=== PATIENT | female | born 1955 | race Caucasian/White ===

== ENCOUNTER 2016-04-09 02:31 | Inpatient (IN) | payer OTHER ==
[~2016-04-09] VITALS: Ht 157.5 cm; Wt 65.0 kg
[2016-04-09] VITALS (10 sets, daily range): BP systolic 79–95; BP diastolic 43–58; PULSE 64–87; TEMP 36.7–37.3; O2SAT 90–98; Ht 157.5 cm; Wt 65.0 kg
[~2016-04-09 02:31] MED LIST: ACT300 PO; CLTP PO; LEVO-366 PO; PRED20TA PO; SYN137 PO
[2016-04-09] MEDS ORDERED: ALBUT/IPRATROP 3MG/0.5MG NEB 3 ML VIAL INH STA (02:47)
[2016-04-09] MEDS ORDERED: SODIUM CHLORIDE 0.9% 1000ML 1,000 ML IV STA ×2 (02:47→05:04)
[2016-04-09] MEDS ORDERED: ACETAMINOPHEN 500 MG TAB PO STA (02:47)
--- NOTE | 2016-04-09 02:57 | EMERGENCY ROOM VISIT NOTE ---
History Report prepared by Alf: James Salas Under the Supervision of: Dr. Donnie Dickey M.D. First contact with patient: 02:40 Chief Complaint: ILLNESS Stated Complaint: ILLNESS History of Present Illness The patient is a 60 year old female who presents to the Emergency Room with complaints of sudden onset illness that started prior to arrival. The patient notes that when she went to bed she felt fine; however, she woke up feverish with chills and was freezing. She notes that she had difficulty catching her breath and also had an episode of vomiting. The patient also complains of cold- like symptoms including headache, runny nose and phlegm. She denies nausea and notes that she feels a little better since she arrived at the ED. The patient also notes a dark malodorous urine for the past week. Source of History: patient Onset: prior to arrival Position: other (global) Timing: other (sudden onset) Associated Symptoms: + SOB (difficulty catching her breath), + chills, + fevers, + headache, + urinary symptoms, + vomiting, No nausea Note: Other associated symptoms: freezing, cold-like symptoms, runny nose, phlegm Review of Systems See HPI for pertinent positives & negatives. A total of 10 systems reviewed and were otherwise negative. Past Medical & Surgical Medical Problems: (1) delivery delivered (2) Elevated troponin (3) UTI (urinary tract infection) Surgical Problems: (1) Benign tumor Family History FHx: cancer Social History Smoking Status: Never Smoker Marital Status: Housing Status: lives with family Occupation Status: employed Current/Historical Medications Scheduled Calcium-Magnesium W/ Vitamin D (Citracal Calcium+D Slow R), 1 TAB PO DAILY Cholecalciferol (Vitamin D3), 1 TAB PO DAILY Levothyroxine Sodium (Levothyroxine Sodium), 1 TAB PO DAILY Ursodiol (Ursodiol), 600 MG PO BID Allergies Coded Allergies: Flu Virus Vaccine (Verified Allergy, Unknown, "my red blood cells drop", ) Latex1 -Allergic Contact Dermititis (Verified Allergy, Unknown, gets rash , 04/09/16) Physical Exam Vital Signs Date Time Temp Pulse Resp B/P Pulse Ox O2 Delivery O2 Flow Rate FiO2 04/09/16 04:26 38.1 103 24 98/47 95 Room Air 04/09/16 02:39 103 04/09/16 02:33 39.2 107 26 107/53 93 Room Air Physical Exam GENERAL: Patient is mildly-anxious appearing. HEENT: No acute trauma, normocephalic atraumatic, mucous membranes moist, no nasal congestion, no scleral icterus. NECK: No stridor, no adenopathy, no meningismus, trachea is midline. LUNGS: No dyspnea. Clear to auscultation and equal bilaterally. No wheeze, no rhonchi. HEART: Tachycardic. No murmurs, rubs, gallops appreciated. ABDOMEN: Soft, nontender, bowel sounds positive, no masses appreciated, no peritonitis. BACK: No midline tenderness, no CVA tenderness EXTREMITIES: Normal motion all extremities, no cyanosis, no edema. NEUROLOGIC: Alert and oriented, no acute motor or sensory deficits, no focal weakness, cranial nerves grossly intact. SKIN: No rash, no jaundice, no diaphoresis. Medical Decision & Procedures ER Provider Diagnostic Interpretation: X ray results are stated below per my interpretation and the radiologist's interpretation. Atelectasis vs. small infiltrate in left lower lobe. No effusion. No pneumothorax. Laboratory Results 04/09/16 02:15 Red Blood Count 3.94, Mean Corpuscular Volume 88.3, Mean Corpuscular Hemoglobin 31.0, Mean Corpuscular Hemoglobin Concent 35.1, Mean Platelet Volume 10.3, Neutrophils (%) (Auto) 82.2, Lymphocytes (%) (Auto) 15.1, Monocytes (%) (Auto) 1.2, Eosinophils (%) (Auto) 1.1, Basophils (%) (Auto) 0.2, Neutrophils # (Auto) 7.33, Lymphocytes # (Auto) 1.35, Monocytes # (Auto) 0.11, Eosinophils # (Auto) 0.10, Basophils # (Auto) 0.02 04/09/16 02:15 Test 04/09/16 02:15 04/09/16 02:55 04/09/16 03:10 04/09/16 03:18 White Blood Count 8.93 K/uL (4.8-10.8) Red Blood Count 3.94 M/uL (4.2-5.4) Hemoglobin 12.2 g/dL (12.0-16.0) Hematocrit 34.8 % (37-47) Mean Corpuscular Volume 88.3 fL (80-100) Mean Corpuscular Hemoglobin 31.0 pg (25-34) Mean Corpuscular Hemoglobin Concent 35.1 g/dl (32-36) Platelet Count 40 K/uL (130-400) Mean Platelet Volume 10.3 fL (7.4-10.4) Neutrophils (%) (Auto) 82.2 % Lymphocytes (%) (Auto) 15.1 % Monocytes (%) (Auto) 1.2 % Eosinophils (%) (Auto) 1.1 % Basophils (%) (Auto) 0.2 % Neutrophils # (Auto) 7.33 K/uL (1.4-6.5) Lymphocytes # (Auto) 1.35 K/uL (1.2-3.4) Monocytes # (Auto) 0.11 K/uL (0.11-0.59) Eosinophils # (Auto) 0.10 K/uL (0-0.5) Basophils # (Auto) 0.02 K/uL (0-0.2) RDW Standard Deviation 44.2 fL (36.4-46.3) RDW Coefficient of Variation 13.9 % (11.5-14.5) Immature Granulocyte % (Auto) 0.2 % Immature Granulocyte # (Auto) 0.02 K/uL (0.00-0.02) Platelet Estimate DECREASED D-Dimer 2810 ug/L FEU (0-500) Anion Gap 15.0 mmol/L (3-11) Est Creatinine Clear Calc Drug Dose 41.0 ml/min Estimated GFR () 51.6 Estimated GFR (Non- 44.6 BUN/Creatinine Ratio 16.1 (10-20) Calcium Level 9.4 mg/dl (8.5-10.1) Total Bilirubin 1.1 mg/dl (0.2-1) Direct Bilirubin 0.4 mg/dl (0-0.2) Aspartate Amino Transf (AST/SGOT) 47 U/L (15-37) Alanine Aminotransferase (ALT/SGPT) 21 U/L (12-78) Alkaline Phosphatase 202 U/L (45-117) Total Creatine Kinase 70 U/L (26-192) Creatine Kinase MB 1.8 ng/ml (0.5-3.6) Creatine Kinase MB Ratio 2.6 (0-3.0) Troponin I 0.031 ng/ml (0-0.045) Total Protein 8.0 gm/dl (6.4-8.2) Albumin 3.7 gm/dl (3.4-5.0) Influenza Type A Antigen Neg for Influ A (NEG) Influenza Type B Antigen Neg for Influ B (NEG) Urine Color YELLOW Urine Appearance SL CLOUDY (CLEAR) Urine pH 6.5 (4.5-7.5) Urine Specific [place] 1.015 (1.000-1.030) Urine Protein TRACE (NEG) Urine Glucose (UA) NEG (NEG) Urine Ketones NEG (NEG) Urine Occult Blood 3+ (NEG) Urine Nitrite POS (NEG) Urine Bilirubin NEG (NEG) Urine Urobilinogen NEG (NEG) Urine Leukocyte Esterase LARGE (NEG) Urine RBC 10-30 /hpf (0-4) Urine WBC >30 /hpf (0-5) Urine Epithelial Cells 0-5 /lpf (0-5) Urine Bacteria 4+ (NEG) Bedside Lactic Acid Venous 1.56 mmol/L (0.90-1.70) Laboratory results as reviewed by me. Medications Administered Medications (Trade) Dose Ordered Sig/Alan Route Start Time Stop Time Status Last Admin Dose Admin Sodium Chloride (Nss 1000ml) 1,000 ml @ 999 mls/hr Q1H1M STAT IV 04/09/16 02:47 04/09/16 03:47 DC 04/09/16 02:56 999 MLS/HR Acetaminophen (Tylenol Tab) 1,000 mg NOW STAT PO 04/09/16 02:47 04/09/16 02:49 DC 04/09/16 02:56 1,000 MG Albuterol/ Ipratropium (Duoneb) 3 ml NOW STAT INH 04/09/16 02:47 04/09/16 02:49 DC 04/09/16 02:56 3 ML Ceftriaxone Sodium 1 gm 1 gm NOW STAT IV 04/09/16 03:53 04/09/16 03:54 DC 04/09/16 04:14 1 GM Sodium Chloride (Nss 1000ml) 1,000 ml @ 999 mls/hr Q1H1M STAT IV 04/09/16 05:04 04/09/16 06:04 DC 04/09/16 05:39 999 MLS/HR ECG Indication: other Rate (beats per minute): 96 Rhythm: normal sinus Findings: no acute ischemic change, no ectopy ED Course 0242: The patient was evaluated in room B9. A complete history and physical exam was performed. 0247: Ordered Duoneb 3 ml INH, Tylenol Tab 1000 mg PO, NSS 1000 ml @ 999 mls/hr IV. 0348: At this time, I reevaluated the patient and she was feeling better. I discussed the the findings with her and her . 0353: Ordered Rocephin Inj 1 gm IV. 0426: At this time, I reevaluated the patient and she is feeling much better. 0504: Ordered Vancomycin HCL 1300 mg/ NSS 526 ml @ 200 mls/hr IV, NSS 1000 ml @ 999 mls/hr IV. 0509: At this time, I discussed the patient's case with Dr. Nichols - Fausto RILEY and she agreed to accept the patient for further evaluation. Medical Decision Differential: Viral, Pharyngitis, Cellulitis, Pneumonia, Influenza, Meningitis, Sepsis, Bacteremia, UTI/Pyelonephritis, Endocrine, Toxicologic, amongst other pathologies entertained. 60 yr old female arrives for evaluation of what sounds by rigors prior to arrival. Mild cough though no significant sob nor chest pain. Given history concern for sepsis thus sepsis work-up begun with blood cultures. Lactic acid normal. Mild tachy which improved with tylenol/fluids. She had good bp which started trending down thus given further IV fluids with good response. She is not in septic shock. She had mildly elevated Troponin which given sepsis felt reasonable rechecking which revealed increasing Trop. Suspect this is more sepsis related though could be some cardiac irritability. There is not evidence of stemi and without chest pain nor cardiac equavialant symptoms I have difficulty believing this is NSTEMI thus will hold on anticoagulants. UA previously susp to Rocephin thus given this in addition to vanco for sepsis treatment. She does not require full 30ml/kg fluid bolus at this time as not in septic shock nor severe sepsis and over hydration may cause more issue than good. Consults Time Called: [phone] Consulting Physician: Dr. Nichols - Fausto RILEY Returned Call: [phone] At this time, I discussed the patient's case with Dr. Nichols and she agreed to accept the patient for further evaluation. Impression Primary Impression: UTI (urinary tract infection) Additional Impressions: Sepsis Elevated troponin Scribe Attestation The scribe's documentation has been prepared under my direction and personally reviewed by me in its entirety. I confirm that the note above accurately reflects all work, treatment, procedures, and medical decision making performed by me. Departure Information Dispostion Being Evaluated By Hospitalist Referrals Lashawn Mendenhall DO (PCP) Problem Qualifiers Primary Impression: UTI (urinary tract infection) Urinary tract infection type: acute cystitis Hematuria presence: without hematuria Qualified Codes: N30.00 - Acute cystitis without hematuria Additional Impressions: Sepsis Sepsis type: sepsis due to unspecified organism Qualified Codes: A41.9 - Sepsis, unspecified organism
[2016-04-09 03:20] LABS: BUN/CREATININE RATIO 16.1 (10-20); CALCIUM 9.4 mg/dl (8.5-10.1); CREATININE 1.3 mg/dl (0.60-1.20)
[2016-04-09 03:21] LABS: MANUAL MICROSCOPIC REQUIRED? YES; URINE APPEARANCE SL CLOUDY (CLEAR); URINE BILIRUBIN NEG (NEG); URINE COLOR YELLOW; URINE NITRITE POS (NEG); URINE PH 6.5 (4.5-7.5); URINE SPECIFIC GRAVITY 1.015 (1.000-1.030); UROBILINOGEN NEG (NEG)
[2016-04-09 03:25] LABS: CKMB/CK RATIO 2.6 (0-3.0)
[2016-04-09 03:30] LABS: REVIEW REQ? NO
[2016-04-09 03:31] LABS: URINE BACTERIA 4+ (NEG); URINE WBC >30 /hpf (0-5)
[2016-04-09 03:32] LABS: ZZUR CULT IF INDIC CLEAN CATCH YES
[2016-04-09] MEDS ORDERED: CEFTRIAXONE SOD INJ 1 GM ADDVIAL IV STA (03:53)
[2016-04-09 04:03] LABS: HEMATOCRIT 34.8 % (37-47); MEAN CELL VOLUME 88.3 fL (80-100); MEAN CORPUSCULAR HGB CONC 35.1 g/dl (32-36); RED BLOOD COUNT 3.94 M/uL (4.2-5.4); WHITE BLOOD COUNT 8.93 K/uL (4.8-10.8)
[2016-04-09 04:04] LABS: BASO % 0.2 %; BASO ABS # 0.02 K/uL (0-0.2); COMPLETE YES; EOS % 1.1 %; IG% 0.2 %; LYMPH % 15.1 %; LYMPH ABS # 1.35 K/uL (1.2-3.4); MONO % 1.2 %; NEUT % 82.2 %; PLT ESTIMATE DECREASED
[2016-04-09] MEDS ORDERED: LEVO75TA5 PO (04:46)
[2016-04-09] MEDS ORDERED: ACT300 PO (04:46)
[2016-04-09] MEDS ORDERED: CHOL1000 PO (04:47)
[2016-04-09] MEDS ORDERED: CALC1TAB56 PO (04:47)
[2016-04-09] MEDS ORDERED: VANCOMYCIN INJ 1,300 MG in SODIUM CHLORIDE 0.9% 500ML 500 ML IV STA (05:04)
--- NOTE | 2016-04-09 05:13 | History and Physical ---
History & Physical Date & Time of Service: Apr 09, 2016 at 05:13 Chief Complaint: Illness Primary Care Physician: Lashawn Mendenhall DO History of Present Illness Source: patient This is a 60 yo F who presented to ED with complain of sudden onset of fever , chills , nausea started last evening pt has been having cold like symptoms including headache, runny nose in the ER -she had normal white count , low platelet count UA was grossly positive for Leukocyte esterase , nitrates and bacteria Past Medical/Surgical History Medical Problems: (1) delivery delivered Status: Resolved Surgical Problems: (1) Benign tumor Status: Resolved Family History FHx: cancer Social History Smoking Status: Never Smoker Marital Status: Occupational Status: employed Immunizations History of Influenza Vaccine: No Influenza Vaccine Date: Dec 13, 2006 History of Tetanus Vaccine?: Unknown History of Pneumococcal: No History of Hepatitis B Vaccine: Unknown Multi-Drug Resistant Organisms History of MDRO: No Allergies Coded Allergies: Flu Virus Vaccine (Verified Allergy, Unknown, "my red blood cells drop", ) Latex1 -Allergic Contact Dermititis (Verified Allergy, Unknown, gets rash , 04/09/16) Home Medications Scheduled Calcium-Magnesium W/ Vitamin D (Citracal Calcium+D Slow R), 1 TAB PO DAILY Cholecalciferol (Vitamin D3), 1 TAB PO DAILY Levothyroxine Sodium (Levothyroxine Sodium), 1 TAB PO DAILY Ursodiol (Ursodiol), 600 MG PO BID Review of Systems Constitutional: + chills, + fatigue, + fever, + weakness Respiratory: + shortness of breath Abdomen: + pain Musculoskeletal: + joint pain, + muscle pain Genitourinary - Female: + dysuria, + urinary frequency, + urinary urgency Neurologic: + vertigo Physical Exam Vital Signs Date Time Temp Pulse Resp B/P Pulse Ox O2 Delivery O2 Flow Rate FiO2 04/09/16 04:26 38.1 103 24 98/47 95 Room Air 04/09/16 02:39 103 04/09/16 02:33 39.2 107 26 107/53 93 Room Air General Appearance: no apparent distress Head: normocephalic, atraumatic Neck: supple, no adenopathy, trachea midline Respiratory/Chest: chest non-tender, lungs clear, normal breath sounds Cardiovascular: regular rate, rhythm Abdomen/GI: normal bowel sounds, non tender, soft Back: no CVA tenderness Extremities/Musculoskelatal: normal capillary refill Neurologic/Psych: no motor/sensory deficits, alert, normal mood/affect, oriented x 3 Skin: normal color, warm/dry, no rash Lymphatic: no adenopathy Diagnostics Laboratory Results Results Past 24 Hours Test 04/09/16 02:15 04/09/16 02:55 04/09/16 03:10 04/09/16 03:18 Range/Units White Blood Count 8.93 4.8-10.8 K/uL Red Blood Count 3.94 4.2-5.4 M/uL Hemoglobin 12.2 12.0-16.0 g/dL Hematocrit 34.8 37-47 % Mean Corpuscular Volume 88.3 80-100 fL Mean Corpuscular Hemoglobin 31.0 25-34 pg Mean Corpuscular Hemoglobin Concent 35.1 32-36 g/dl Platelet Count 40 130-400 K/uL Mean Platelet Volume 10.3 7.4-10.4 fL Neutrophils (%) (Auto) 82.2 % Lymphocytes (%) (Auto) 15.1 % Monocytes (%) (Auto) 1.2 % Eosinophils (%) (Auto) 1.1 % Basophils (%) (Auto) 0.2 % Neutrophils # (Auto) 7.33 1.4-6.5 K/uL Lymphocytes # (Auto) 1.35 1.2-3.4 K/uL Monocytes # (Auto) 0.11 0.11-0.59 K/uL Eosinophils # (Auto) 0.10 0-0.5 K/uL Basophils # (Auto) 0.02 0-0.2 K/uL RDW Standard Deviation 44.2 36.4-46.3 fL RDW Coefficient of Variation 13.9 11.5-14.5 % Immature Granulocyte % (Auto) 0.2 % Immature Granulocyte # (Auto) 0.02 0.00-0.02 K/uL Platelet Estimate DECREASED Sodium Level 142 136-145 mmol/L Potassium Level 4.0 3.5-5.1 mmol/L Chloride Level 108 98-107 mmol/L Carbon Dioxide Level 19 21-32 mmol/L Anion Gap 15.0 3-11 mmol/L Blood Urea Nitrogen 21 7-18 mg/dl Creatinine 1.30 0.60-1.20 mg/dl Est Creatinine Clear Calc Drug Dose 41.0 ml/min Estimated GFR () 51.6 Estimated GFR (Non- 44.6 BUN/Creatinine Ratio 16.1 10-20 Random Glucose 104 70-99 mg/dl Calcium Level 9.4 8.5-10.1 mg/dl Total Bilirubin 1.1 0.2-1 mg/dl Direct Bilirubin 0.4 0-0.2 mg/dl Aspartate Amino Transf (AST/SGOT) 47 15-37 U/L Alanine Aminotransferase (ALT/SGPT) 21 12-78 U/L Alkaline Phosphatase 202 45-117 U/L Total Creatine Kinase 70 26-192 U/L Creatine Kinase MB 1.8 0.5-3.6 ng/ml Creatine Kinase MB Ratio 2.6 0-3.0 Troponin I 0.031 0-0.045 ng/ml Total Protein 8.0 6.4-8.2 gm/dl Albumin 3.7 3.4-5.0 gm/dl Influenza Type A Antigen Neg for Influ A NEG Influenza Type B Antigen Neg for Influ B NEG Urine Color YELLOW Urine Appearance SL CLOUDY CLEAR Urine pH 6.5 4.5-7.5 Urine Specific [place] 1.015 1.000-1.030 Urine Protein TRACE NEG Urine Glucose (UA) NEG NEG Urine Ketones NEG NEG Urine Occult Blood 3+ NEG Urine Nitrite POS NEG Urine Bilirubin NEG NEG Urine Urobilinogen NEG NEG Urine Leukocyte Esterase LARGE NEG Urine RBC 10-30 0-4 /hpf Urine WBC >30 0-5 /hpf Urine Epithelial Cells 0-5 0-5 /lpf Urine Bacteria 4+ NEG Bedside Lactic Acid Venous 1.56 0.90-1.70 mmol/L Microbiology Results 04/09/16 Blood Culture, Received Pending 04/09/16 Blood Culture, Received Pending 04/09/16 Urine Culture, Received Pending CXR normal EKG NORMAL SINUS RHYTHM Impression Assessment and Plan UTI : + ua present with weakness, fever and chills acute thrombocytopenia NIRANJAN pt is started on IV Rocephin empirically follow blood and urine culture avoid antiplatelets THROMBOCYTOPENIA : platelet count 80 acute , lab work on 03/16/16 -platelet count 129 /02/08/2017 -214 avoid antiplatelets follow daily CBC ordered for peripheral smear DEHYDRATION /NIRANJAN possible due to above hx CKD stage 3 , baseline Cr ~1 IVF with NSS @ 100 ml/hr follow daily PRP HX OF HYPOTHYROIDISM : cont levothyroxine MILD ELEVATION OF TROPONIN : possible due to NIRANJAN, infection no complain of Chest pain EKG normal sinus , no ST-T wave changes monitor in Tele serial cardiac markers ordered ECHO no Aspirin or antiplatelet for thrombocytopenia FULL CODE DVT PROPHYLAXIS : SCD and teds no Sub Q heparin for thrombocytopenia DISPOSITION ; discharge to home when medically stable Medicine follow up with Dr Mendenhall Level of Care Telemetry Resuscitation Status FULL RESUSCITATION VTE Prophylaxis VTE Risk Assessment Done? Y/N: Yes Risk Level: Moderate Given or contraindicated: Unfractionated heparin SQ Additional Copies To Lashawn Mendenhall,DO
[2016-04-09] MEDS ORDERED: MAGNESIUM HYDROXIDE SUSP 30 ML UDC PO PRN (05:15)
[2016-04-09] MEDS ORDERED: ACETAMINOPHEN 325 MG TAB PO PRN (05:15)
[2016-04-09] MEDS ORDERED: POLYETHYLENE (MIRALAX) 17 GM PACK PO PRN (05:15)
[2016-04-09] MEDS ORDERED: ZOLPIDEM TARTRATE 5 MG TAB PO PRN (05:15)
[2016-04-09] MEDS ORDERED: ALUMINUM/MAGNESIUM/SIMETH (MAALOX MAX) 30 ML UDC PO PRN (05:15)
[2016-04-09] MEDS ORDERED: ONDANSETRON INJ 2 MG/ML 2 ML VIAL IV PRN (05:15)
[2016-04-09] MEDS ORDERED: NITROGLYCERIN 0.4 MG SL PER TAB CHARGE SL PRN (05:15)
[2016-04-09] MEDS ORDERED: VANCOMYCIN INJ 1,300 MG in SODIUM CHLORIDE 0.9% 250ML 250 ML IV STA (05:28)
[2016-04-09] MEDS ORDERED: HEPARIN SOD 5000 UNIT/0.5 ML CARP SQ SCH (06:00)
[2016-04-09] MEDS ORDERED: LEVOTHYROXINE 75 MCG TAB PO SCH (06:30)
[2016-04-09] MEDS: SODIUM CHLORIDE 0.9% 1000ML 1,000 ML IV SCH ×3 (06:40→22:55)
--- NOTE | 2016-04-09 08:20 | Progress Note ---
Progress Note ATTENDING NOTE : D DIMER elevated > 2800 pt reports of episode of SOB with nausea possible elevation of D dimer due to infection /UTI ordered for lower ext Doppler to to R/O DVT CTA of chest not ordered due to NIRANJAN
[2016-04-09] MEDS: CHOLECALCIFEROL 1000 INTER.UNIT TAB PO SCH (08:59)
[2016-04-09] MEDS: CALCIUM 600MG + VIT D 400 IU TAB PO SCH (08:59)
[2016-04-09] MEDS ORDERED: URSODIOL 300 MG CAP PO SCH (09:00)
--- NOTE | 2016-04-09 09:07 | DIAGNOSTIC IMAGING REPORT ---
CHEST ONE VIEW PORTABLE CLINICAL HISTORY: Fever. COMPARISON STUDY: Chest radiograph February 03, 2010. FINDINGS: Lung volumes are normal. Linear opacities suggest atelectasis. Cardiac size is normal. Mediastinal contours are normal. There is no consolidation to suggest pneumonia. There is no evidence of pulmonary edema. IMPRESSION: 1. No acute findings. 2. Linear bilateral opacities which suggest atelectasis. Electronically signed by: Maxwell Thompson M.D. 04/09/2016 9:05 AM Dictated Date/Time: 04/09/2016 8:59 AM
--- NOTE | 2016-04-09 09:20 | Progress Note ---
Internal Med Progress Note Date of Service: Apr 09, 2016. Provider Documentation: SUBJECTIVE: Patient is feeling much better today Tmax 39.2 - trending down, BP low in 80s but asymptomatic Right flank pain improving, no burning, frequency of urination noted, no vomiting since admission No abdominal pain OBJECTIVE: Vital Signs-as noted below Exam: General-AAOX3, no distress Eyes- No icterus Neck-Supple, NO JVD Lungs-AEBE, no wheezing, rhonchi Heart-S1, S2 normal, no murmurs Abdomen-Soft, non tender, non distended, BS present. Mild right flank tenderness + Extremities-No edema Lab data as noted below. ASSESSMENT & PLAN: PYELONEPHRITIS : Improving Presented with sudden onset fever, chills, mild right flank pain, vomiting, UA + ve Tmax 39.2 -IV Rocephin (Day 2) -IV fluids -Work up- Follow up blood, urine cultures NIRANJAN ON CKD-III Secondary to volume depletion secondary to vomiting, nausea -IV fluids -Monitor THROMBOCYTOPENIA , ACUTE Likely reactive secondary to infection -No signs of active bleeding -Monitor HX OF HYPOTHYROIDISM : -cont levothyroxine FULL CODE DVT PROPHYLAXIS : SCD and teds no Sub Q heparin for thrombocytopenia DISPOSITION ; discharge to home when medically stable Medicine follow up with Dr Mendenhall Vital Signs: Date Time Temp Pulse Resp B/P Pulse Ox O2 Delivery O2 Flow Rate FiO2 04/09/16 07:45 36.9 77 18 79/49 93 Room Air 82/43 04/09/16 06:06 36.9 87 18 91/55 94 Room Air 04/09/16 05:41 95 24 80/45 95 Room Air 04/09/16 04:26 38.1 103 24 98/47 95 Room Air 04/09/16 02:39 103 04/09/16 02:33 39.2 107 26 107/53 93 Room Air Lab Results: Results Past 24 Hours Test 04/09/16 02:15 04/09/16 02:55 04/09/16 03:10 04/09/16 03:18 Range/Units White Blood Count 8.93 4.8-10.8 K/uL Red Blood Count 3.94 4.2-5.4 M/uL Hemoglobin 12.2 12.0-16.0 g/dL Hematocrit 34.8 37-47 % Mean Corpuscular Volume 88.3 80-100 fL Mean Corpuscular Hemoglobin 31.0 25-34 pg Mean Corpuscular Hemoglobin Concent 35.1 32-36 g/dl Platelet Count 40 130-400 K/uL Mean Platelet Volume 10.3 7.4-10.4 fL Neutrophils (%) (Auto) 82.2 % Lymphocytes (%) (Auto) 15.1 % Monocytes (%) (Auto) 1.2 % Eosinophils (%) (Auto) 1.1 % Basophils (%) (Auto) 0.2 % Neutrophils # (Auto) 7.33 1.4-6.5 K/uL Lymphocytes # (Auto) 1.35 1.2-3.4 K/uL Monocytes # (Auto) 0.11 0.11-0.59 K/uL Eosinophils # (Auto) 0.10 0-0.5 K/uL Basophils # (Auto) 0.02 0-0.2 K/uL RDW Standard Deviation 44.2 36.4-46.3 fL RDW Coefficient of Variation 13.9 11.5-14.5 % Immature Granulocyte % (Auto) 0.2 % Immature Granulocyte # (Auto) 0.02 0.00-0.02 K/uL Platelet Estimate DECREASED D-Dimer 2810 0-500 ug/L FEU Sodium Level 142 136-145 mmol/L Potassium Level 4.0 3.5-5.1 mmol/L Chloride Level 108 98-107 mmol/L Carbon Dioxide Level 19 21-32 mmol/L Anion Gap 15.0 3-11 mmol/L Blood Urea Nitrogen 21 7-18 mg/dl Creatinine 1.30 0.60-1.20 mg/dl Est Creatinine Clear Calc Drug Dose 41.0 ml/min Estimated GFR () 51.6 Estimated GFR (Non- 44.6 BUN/Creatinine Ratio 16.1 10-20 Random Glucose 104 70-99 mg/dl Calcium Level 9.4 8.5-10.1 mg/dl Total Bilirubin 1.1 0.2-1 mg/dl Direct Bilirubin 0.4 0-0.2 mg/dl Aspartate Amino Transf (AST/SGOT) 47 15-37 U/L Alanine Aminotransferase (ALT/SGPT) 21 12-78 U/L Alkaline Phosphatase 202 45-117 U/L Total Creatine Kinase 70 26-192 U/L Creatine Kinase MB 1.8 0.5-3.6 ng/ml Creatine Kinase MB Ratio 2.6 0-3.0 Troponin I 0.031 0-0.045 ng/ml Total Protein 8.0 6.4-8.2 gm/dl Albumin 3.7 3.4-5.0 gm/dl Influenza Type A Antigen Neg for Influ A NEG Influenza Type B Antigen Neg for Influ B NEG Urine Color YELLOW Urine Appearance SL CLOUDY CLEAR Urine pH 6.5 4.5-7.5 Urine Specific [place] 1.015 1.000-1.030 Urine Protein TRACE NEG Urine Glucose (UA) NEG NEG Urine Ketones NEG NEG Urine Occult Blood 3+ NEG Urine Nitrite POS NEG Urine Bilirubin NEG NEG Urine Urobilinogen NEG NEG Urine Leukocyte Esterase LARGE NEG Urine RBC 10-30 0-4 /hpf Urine WBC >30 0-5 /hpf Urine Epithelial Cells 0-5 0-5 /lpf Urine Bacteria 4+ NEG Bedside Lactic Acid Venous 1.56 0.90-1.70 mmol/L Test 04/09/16 06:58 04/09/16 08:17 Range/Units Microbiology Results 04/09/16 Blood Culture, Received Pending 04/09/16 Blood Culture, Received Pending 04/09/16 Urine Culture, Received Pending
[2016-04-09 10:51] LABS: HEMATOCRIT 27.4 % (37-47); MEAN CORPUSCULAR HEMOGLOBIN 30.5 pg (25-34); MEAN CORPUSCULAR HGB CONC 34.3 g/dl (32-36); MEAN PLATELET VOLUME 9.6 fL (7.4-10.4); PLATELET COUNT 118 K/uL (130-400); RED BLOOD COUNT 3.08 M/uL (4.2-5.4); WHITE BLOOD COUNT 8.91 K/uL (4.8-10.8)
[2016-04-09 10:56] LABS: PLT ESTIMATE DECREASED
--- NOTE | 2016-04-09 11:09 | DIAGNOSTIC IMAGING REPORT ---
BILATERAL LOWER EXTREMITY VENOUS DOPPLER CLINICAL HISTORY: Elevated d-dimer. COMPARISON STUDY: No previous studies for comparison. TECHNIQUE: Sonography of the deep venous system of the bilateral lower extremities was performed. Compression and augmentation were evaluated. FINDINGS: The bilateral common femoral, superficial femoral and popliteal veins were compressible. Augmentation was normal. Flow was shown within the deep calf vessels. IMPRESSION: No evidence of deep venous thrombus within the bilateral lower extremities. Electronically signed by: Maxwell Thompson M.D. 04/09/2016 11:08 AM Dictated Date/Time: 04/09/2016 11:07 AM
[2016-04-09 12:04] LABS: CKMB/CK RATIO 2.2 (0-3.0)
--- NOTE | 2016-04-09 12:26 | Progress Note ---
Progress Note Patient's trop went up to 1.44. EKG reviewed- NSR, T wave inversion in III lead , but no change compared to prior EKG in 2006, no acute ischemic changes noted. No cardiac symptoms- no chest pain, SOB, diaphoresis, nausea, vomiting, sweating. No prior hx of CAD, DM, HTN, HLP. Likely demand ischemia secondary to pyelonephritis. Monitor closely on telemetry
[2016-04-09] MEDS ORDERED: LEVO150T PO (18:29)
[2016-04-09 20:34] LABS: CKMB/CK RATIO 2.3 (0-3.0)
[2016-04-09] MEDS: URSODIOL 300 MG PO SCH (20:55)
[2016-04-10] VITALS (9 sets, daily range): BP systolic 88–129; BP diastolic 40–72; PULSE 58–72; TEMP 36.6–36.9; O2SAT 92–98
[2016-04-10] MEDS: CEFTRIAXONE SOD INJ 1 GM in DEXTROSE 5% ADD-VANTAGE 50ML 50 ML IV SCH (03:28)
[2016-04-10] MEDS: LEVOTHYROXINE 150 MCG PO SCH (06:05)
[2016-04-10] MEDS: SODIUM CHLORIDE 0.9% 1000ML 1,000 ML IV SCH (06:06)
[2016-04-10 07:42] LABS: ALT/SGPT 22 U/L (12-78); BLOOD UREA NITROGEN 13 mg/dl (7-18); BUN/CREATININE RATIO 13.4 (10-20); CALCIUM 8.4 mg/dl (8.5-10.1); CARBON DIOXIDE 17 mmol/L (21-32); CHLORIDE 118 mmol/L (98-107); CHOLESTEROL 144 mg/dl (0-200); CREATININE 0.99 mg/dl (0.60-1.20); GLUCOSE 83 mg/dl (70-99); SODIUM 146 mmol/L (136-145)
[2016-04-10 07:53] LABS: ALKALINE PHOSPHATASE 148 U/L (45-117); CHOLESTEROL/HDL RATIO 2.6; HDL CHOLESTEROL 55 mg/dl; LDL CHOLESTEROL CALCULATED 71 mg/dl; TRIGLYCERIDES 92 mg/dl (0-150); VERY LOW DENSITY LIPOPROT CALC 18 mg/dl
[2016-04-10 08:24] LABS: MAGNESIUM 1.9 mg/dl (1.8-2.4); POTASSIUM 3.7 mmol/L (3.5-5.1)
--- NOTE | 2016-04-10 08:37 | ECHOCARDIOGRAM REPORT ---
*NOTICE TO RECEIVING REPUBLICAN AGENCY This information is strictly Confidential and protected under [place] law. [place] law prohibits you from making any further disclosure of this information unless further disclosure is expressly permitted by the written consent of the person to whom it pertains or is authorized by law. A general authorization for the release of medical or other information is not sufficient for this purpose. Hospital accepts no responsibility if the information is made available to any other person, INCLUDING THE PATIENT. Interpretation Summary * Name: CHITRA MILTON Study Date: 04/09/2016 03:16 PM BP: 91/55 mmHg * Patient Location: [facility] HR: 58 * : 1955 (M/d/yyyy) Gender: Female Height: 62 in * Age: 60 yrs Ethnicity: [place] Weight: 145 lb * Ordering Physician: Catia Nichols * Referring Physician: Self, Referred * Performed By: Harry Gimenez RDCS * * Reason For Study: Chest pain * BSA: 1.7 m2 * A transesophageal echocardiogram is recommended. * -- Conclusions -- * Doppler suggests left to right interatrial shunt. * Injection of contrast documented an interatrial shunt. * A transesophageal echocardiogram is recommended. * There is severe tricuspid regurgitation. * The right ventricle is normal size. * The right ventricular systolic function is normal. * Right atrial size is normal. * There is no evidence of pulmonary hypertension. The PA systolic pressure is less than 36 mmHg. * Left ventricular systolic function is normal. * Ejection Fraction = 65-70%. * The left ventricular wall motion is normal. Procedure Details * A complete two-dimensional transthoracic echocardiogram was performed (2D, M-mode, Doppler and color flow Doppler). * The study was technically adequate. * A saline contrast injection was performed to assess for cardiac shunting. * The injection was performed through an intravenous line in the left arm. * The attending nurse who injected the saline contrast was PAUL Gonzales. * A total of 10 cc of agitated saline was given. Left Ventricle * The left ventricle is normal in size. * Left ventricular systolic function is normal. * Ejection Fraction = 65-70%. * The left ventricular wall motion is normal. Right Ventricle * The right ventricle is normal size. * The right ventricular systolic function is normal. Atria * The left atrial size is normal. * Right atrial size is normal. * Injection of contrast documented an interatrial shunt. * Doppler suggests left to right interatrial shunt. Mitral Valve * The mitral valve is normal in structure and function. Tricuspid Valve * The tricuspid valve anatomy is normal. * There is severe tricuspid regurgitation. Aortic Valve * The aortic valve is normal in structure and function. Pulmonic Valve * The pulmonic valve is not well visualized. Great Vessels * The aortic root and proximal ascending aorta are normal sized. Pericardium/Pleural * There is no pericardial effusion. Great Vessels * There is no evidence of pulmonary hypertension. The PA systolic pressure is less than 36 mmHg. MMode 2D Measurements and Calculations IVSd 0.88 cm IVSs 1.3 cm LVIDd 4.0 cm LVIDs 2.4 cm LVPWd 0.98 cm LVPWs 1.6 cm IVS/LVPW 0.89 FS 39.3 % EDV(Teich) 69.1 ml ESV(Teich) 20.5 ml EF(Teich) 70.3 % EDV(cubed) 63.0 ml ESV(cubed) 14.1 ml EF(cubed) 77.6 % % IVS thick 47.3 % % LVPW thick 58.5 % LV mass(C)d 113.6 grams LV mass(C)dI 68.1 grams/m\S\2 LV mass(C)s 110.1 grams LV mass(C)sI 66.1 grams/m\S\2 SV(Teich) 48.6 ml SI(Teich) 29.2 ml/m\S\2 SV(cubed) 48.9 ml SI(cubed) 29.3 ml/m\S\2 Ao root diam 2.9 cm Ao root area 6.8 cm\S\2 ACS 2.0 cm LA dimension 3.7 cm asc Aorta Diam 3.0 cm LA/Ao 1.3 LVOT diam 2.1 cm LVOT area 3.3 cm\S\2 LVAd ap4 21.6 cm\S\2 LVLd ap4 7.1 cm EDV(MOD-sp4) 54.0 ml LVAs ap4 10.8 cm\S\2 LVLs ap4 5.7 cm ESV(MOD-sp4) 17.0 ml EF(MOD-sp4) 68.5 % LVAd ap2 20.4 cm\S\2 LVLd ap2 6.7 cm EDV(MOD-sp2) 52.0 ml LVAs ap2 10.2 cm\S\2 LVLs ap2 5.3 cm ESV(MOD-sp2) 16.0 ml EF(MOD-sp2) 69.2 % SV(MOD-sp4) 37.0 ml SI(MOD-sp4) 22.2 ml/m\S\2 SV(MOD-sp2) 36.0 ml SI(MOD-sp2) 21.6 ml/m\S\2 Doppler Measurements and Calculations MV E max landy 93.8 cm/sec MV A max landy 68.5 cm/sec MV E/A 1.4 MV dec time 0.15 sec Ao V2 max 145.1 cm/sec Ao max PG 8.4 mmHg Ao max PG (full) 2.6 mmHg NONA(V,A) 2.8 cm\S\2 NONA(V,D) 2.8 cm\S\2 LV V1 max PG 5.8 mmHg LV V1 max 120.7 cm/sec PA V2 max 82.2 cm/sec PA max PG 2.7 mmHg PI end-d landy 94.6 cm/sec TR max landy 251.0 cm/sec
[2016-04-10] MEDS: CALCIUM 600MG + VIT D 400 IU TAB PO SCH (08:40)
[2016-04-10] MEDS: URSODIOL 300 MG PO SCH ×2 (08:40→19:39)
[2016-04-10] MEDS: CHOLECALCIFEROL 1000 INTER.UNIT TAB PO SCH (08:40)
[2016-04-10 09:11] LABS: HEMATOCRIT 28.2 % (37-47); MEAN CELL VOLUME 87.6 fL (80-100); MEAN CORPUSCULAR HEMOGLOBIN 30.4 pg (25-34); MEAN CORPUSCULAR HGB CONC 34.8 g/dl (32-36); MEAN PLATELET VOLUME 10.8 fL (7.4-10.4); PLATELET COUNT 57 K/uL (130-400); PLT ESTIMATE DECREASED; RED BLOOD COUNT 3.22 M/uL (4.2-5.4); WHITE BLOOD COUNT 3.72 K/uL (4.8-10.8)
--- NOTE | 2016-04-10 10:10 | Progress Note ---
Internal Med Progress Note Date of Service: Apr 10, 2016. Provider Documentation: SUBJECTIVE: Patient is feeling much better and eager to be discharged. Afebrile since day of admission, BP stable Right flank pain resolved, no burning, frequency of urination noted, no vomiting since admission No abdominal pain OBJECTIVE: Vital Signs-as noted below Exam: General-AAOX3, no distress Eyes- No icterus Neck-Supple, NO JVD Lungs-AEBE, no wheezing, rhonchi Heart-S1, S2 normal, no murmurs Abdomen-Soft, non tender, non distended, BS present. Right flank tenderness resolved Extremities-No edema Lab data as noted below. ASSESSMENT & PLAN: PYELONEPHRITIS : Resolving Presented with sudden onset fever, chills, mild right flank pain, vomiting, UA + ve Tmax 39.2 on presentation- no more spikes since than; Clinically improved with resolution of symptoms. -IV Rocephin (Day 3) -IV fluids - ok to discontinue as tolerating PO well -Work up- Urine cx- GNB- F/up C/S, Blood cx x 2- negative ELEVATED TROPONIN, Likely demand ischemia secondary to infection -No cardiac symptoms, no prior cardiac history -Troponin- 0.031, 1.44, 0.083--> trending down -Echocardiogram - New diagnosis of Right --> left interatrial shunt, Severe TR, EF 65-70%, No wall motion abnormalities -Per Echo- recommends FRANK for further evaluation. Discussed with Dr Garcia-- needs to plan it electively outpatient after current infection resolves. -Will need to have a follow up with cardiology for outpatient FRANK. Discussed results with patient at length. NIRANJAN ON CKD-III- Resolved Secondary to volume depletion secondary to vomiting, nausea PANCYTOPENIA/ THROMBOCYTOPENIA , ACUTE - Worse today Likely reactive secondary to infection/Antibiotics ? -No signs of active bleeding -Monitor closely HX OF HYPOTHYROIDISM : -Cont levothyroxine FULL CODE DVT PROPHYLAXIS : SCD / TEDs no Sub Q heparin for thrombocytopenia DISPOSITION ; Discharge to home when medically stable - Likely tomorrow- Awaiting Urine C/S results, F/up CBC for pancytopenia Medicine follow up with Dr Mendenhall Cardiology follow up for FRANK Vital Signs: Date Time Temp Pulse Resp B/P Pulse Ox O2 Delivery O2 Flow Rate FiO2 04/10/16 07:55 Room Air 04/10/16 07:29 36.6 66 18 106/63 92 Room Air 04/10/16 05:01 96 Room Air 04/10/16 03:51 36.9 59 16 88/40 94 Room Air 04/10/16 00:12 96 Room Air 04/09/16 23:00 37.3 82 18 92/55 90 Room Air 04/09/16 20:00 96 Room Air 04/09/16 19:22 37.2 71 20 95/57 96 Room Air 04/09/16 16:00 98 Room Air 04/09/16 15:28 36.7 64 20 91/55 98 Room Air 04/09/16 13:19 36.7 68 20 95/58 95 Room Air 04/09/16 12:00 98 Room Air Lab Results: Results Past 24 Hours Test 04/09/16 11:13 04/09/16 19:46 04/10/16 06:53 04/10/16 07:37 Range/Units Total Creatine Kinase 157 145 26-192 U/L Creatine Kinase MB 3.5 3.4 0.5-3.6 ng/ml Creatine Kinase MB Ratio 2.2 2.3 0-3.0 Troponin I 1.440 0.823 0-0.045 ng/ml Sodium Level 146 136-145 mmol/L Potassium Level 3.7 3.5-5.1 mmol/L Chloride Level 118 98-107 mmol/L Carbon Dioxide Level 17 21-32 mmol/L Anion Gap 11.0 3-11 mmol/L Blood Urea Nitrogen 13 7-18 mg/dl Creatinine 0.99 0.60-1.20 mg/dl Est Creatinine Clear Calc Drug Dose 53.8 ml/min Estimated GFR () 71.8 Estimated GFR (Non- 61.9 BUN/Creatinine Ratio 13.4 10-20 Random Glucose 83 70-99 mg/dl Calcium Level 8.4 8.5-10.1 mg/dl Magnesium Level 1.9 1.8-2.4 mg/dl Total Bilirubin 0.9 0.2-1 mg/dl Direct Bilirubin 0.5 0-0.2 mg/dl Aspartate Amino Transf (AST/SGOT) 36 15-37 U/L Alanine Aminotransferase (ALT/SGPT) 22 12-78 U/L Alkaline Phosphatase 148 45-117 U/L Total Protein 6.5 6.4-8.2 gm/dl Albumin 2.8 3.4-5.0 gm/dl Triglycerides Level 92 0-150 mg/dl Cholesterol Level 144 0-200 mg/dl HDL Cholesterol 55 mg/dl LDL Cholesterol, Calculated 71 mg/dl VLDL Cholesterol, Calculated 18 mg/dl Cholesterol/HDL Ratio 2.6 White Blood Count 3.72 4.8-10.8 K/uL Red Blood Count 3.22 4.2-5.4 M/uL Hemoglobin 9.8 12.0-16.0 g/dL Hematocrit 28.2 37-47 % Mean Corpuscular Volume 87.6 80-100 fL Mean Corpuscular Hemoglobin 30.4 25-34 pg Mean Corpuscular Hemoglobin Concent 34.8 32-36 g/dl RDW Standard Deviation 47.0 36.4-46.3 fL RDW Coefficient of Variation 14.6 11.5-14.5 % Platelet Count 57 130-400 K/uL Mean Platelet Volume 10.8 7.4-10.4 fL Platelet Estimate DECREASED
[2016-04-11 00:01] VITALS: O2SAT 96
[2016-04-11] MEDS: CEFTRIAXONE SOD INJ 1 GM in DEXTROSE 5% ADD-VANTAGE 50ML 50 ML IV SCH (03:46)
[2016-04-11 03:56] VITALS: O2SAT 97
[2016-04-11 03:58] VITALS: BP 133/72; PULSE 68; TEMP 36.7; O2SAT 97
[2016-04-11] MEDS: LEVOTHYROXINE 150 MCG PO SCH (06:31)
[2016-04-11 07:55] LABS: MEAN CELL VOLUME 88.7 fL (80-100); MEAN CORPUSCULAR HEMOGLOBIN 30.6 pg (25-34); MEAN CORPUSCULAR HGB CONC 34.5 g/dl (32-36); RED BLOOD COUNT 3.27 M/uL (4.2-5.4); WHITE BLOOD COUNT 3.71 K/uL (4.8-10.8)
[2016-04-11 07:56] VITALS: BP 108/63; PULSE 57; TEMP 36.8; O2SAT 97
[2016-04-11 08:40] LABS: MEAN PLATELET VOLUME 10.4 fL (7.4-10.4); PLATELET COUNT 80 K/uL (130-400)
[2016-04-11 08:41] LABS: PLT ESTIMATE DECREASED
[2016-04-11] MEDS: CALCIUM 600MG + VIT D 400 IU TAB PO SCH (08:52)
[2016-04-11] MEDS: URSODIOL 300 MG PO SCH (08:53)
[2016-04-11] MEDS: CHOLECALCIFEROL 1000 INTER.UNIT TAB PO SCH (08:53)
--- NOTE | 2016-04-11 10:42 | Progress Note ---
Internal Med Progress Note Date of Service: Apr 11, 2016. Provider Documentation: SUBJECTIVE: Patient is seen and examined at bedside. Feels well. Offers no complaints. Eager to get discharged. OBJECTIVE: Vital Signs-as noted below Physical Exam: General Appearance:Moderately built and nourished, no apparent distress Head: normocephalic, Atraumatic Eyes: normal inspection, EOMI, PERRLA Neck: supple, no JVD, Trachea midline Respiratory/Chest: Normal breath sounds, CTA, No accessory muscle use Cardiovascular: S1, S2, NSR Abdomen/GI:Soft, Non tender, Bowel sounds present, No flank tenderness Extremities/Musculoskelatal:normal inspection, no edema Neurologic/Psych:AAOX3, grossly no focal neurological deficits Skin: normal color, warm Lab data as noted below. ASSESSMENT & PLAN: ACUTE PYELONEPHRITIS : Patient presented with fever, chills, right flank pain, vomiting Clinically improved after IV antibiotics S/P IV Rocephin for 3 days >> Will switch to PO Levaquin Urine culture: E.coli Blood culture x 2- negative ELEVATED TROPONIN, Likely demand ischemia secondary to infection No cardiac symptoms, no prior cardiac history Troponin- 0.031, 1.44, 0.083 trended down ECHO: New diagnosis of Right to left interatrial shunt, Severe TR, EF 65-70%, No wall motion abnormalities Needs FRANK for further evaluation as outpatient. Plan to get FRANK as outpatient after current infection resolves Plan to follow up with and plan to get FRANK: on 04/26/16 Discussed with by Vimal during hospitalization NIRANJAN on CKD-III Resolved Likely prerenal secondary to vomiting PANCYTOPENIA/ THROMBOCYTOPENIA , ACUTE Likely secondary to infection No signs of active bleeding Monitor closely Improved HYPOTHYROIDISM : Continue levothyroxine CODE STATUS: full code DVT PROPHYLAXIS : SCDs patient has thrombocytopenia DISPOSITION ; Plan to discharge home today Follow up with Dr Mendenhall on 04/07/16 at 11:10 AM Follow up with , Cardiology on 04/26/16 at 1:45 pm for FRANK as outpatient Vital Signs: Date Time Temp Pulse Resp B/P Pulse Ox O2 Delivery O2 Flow Rate FiO2 04/11/16 08:00 Room Air 04/11/16 07:56 36.8 57 18 108/63 97 Room Air 04/11/16 03:58 36.7 68 20 133/72 97 Room Air 04/11/16 03:56 97 Room Air 04/11/16 00:01 96 Room Air 04/10/16 23:23 36.8 72 18 98/61 95 Room Air 04/10/16 19:51 96 Room Air 04/10/16 19:33 36.7 68 18 129/72 97 Room Air 04/10/16 15:31 Room Air 04/10/16 15:28 36.8 58 18 109/67 98 04/10/16 11:52 Room Air 04/10/16 11:46 36.7 61 18 101/62 96 Room Air Lab Results: Results Past 24 Hours Test 04/11/16 07:37 Range/Units White Blood Count 3.71 4.8-10.8 K/uL Red Blood Count 3.27 4.2-5.4 M/uL Hemoglobin 10.0 12.0-16.0 g/dL Hematocrit 29.0 37-47 % Mean Corpuscular Volume 88.7 80-100 fL Mean Corpuscular Hemoglobin 30.6 25-34 pg Mean Corpuscular Hemoglobin Concent 34.5 32-36 g/dl RDW Standard Deviation 46.4 36.4-46.3 fL RDW Coefficient of Variation 14.3 11.5-14.5 % Platelet Count 80 130-400 K/uL Mean Platelet Volume 10.4 7.4-10.4 fL Platelet Estimate DECREASED Total Bilirubin 0.4 0.2-1 mg/dl Direct Bilirubin 0.2 0-0.2 mg/dl Aspartate Amino Transf (AST/SGOT) 23 15-37 U/L Alanine Aminotransferase (ALT/SGPT) 18 12-78 U/L Alkaline Phosphatase 149 45-117 U/L Total Protein 6.6 6.4-8.2 gm/dl Albumin 2.8 3.4-5.0 gm/dl
[2016-04-11] MEDS ORDERED: LEVO-459 PO (10:49)
--- NOTE | 2016-04-11 10:56 | Discharge Summary ---
Discharge Summary Admission Date: Apr 09, 2016 at 05:11 Discharge Date: Apr 11, 2016 Discharge Disposition: Home Principal Diagnosis: Acute Pyelonephritis Procedures: CXR: 1. No acute findings. 2. Linear bilateral opacities which suggest atelectasis. Venous Doppler: No evidence of deep venous thrombus within the bilateral lower extremities. Pending Studies/Follow-Up: Follow up with on 04/07/16 Follow up with (Cardiology) on 04/26/16 at 1:45pm and get FRANK as outpatient Medication Reconciliation New Medications: Levofloxacin (Levaquin) 500 Mg Tab 750 MG PO Q48H, #5 Continued Medications: Calcium-Magnesium W/ Vitamin D (Citracal Calcium+D Slow R) 1 Tab Tab 1 TAB PO DAILY Cholecalciferol (Vitamin D3) 1,000 Unit Tab 1 TAB PO DAILY for 90 Days, #90 TAB 3 Refills Levothyroxine Sodium (Synthroid) 150 Mcg Tab 1 TAB PO DAILY for 30 Days, #30 TAB 5 Refills Ursodiol (Ursodiol) 300 Mg Cap 600 MG PO BID Admission Information HPI (per Admitting provider): This is a 60 yo F who presented to ED with complain of sudden onset of fever , chills , nausea started last evening pt has been having cold like symptoms including headache, runny nose in the ER -she had normal white count , low platelet count UA was grossly positive for Leukocyte esterase , nitrates and bacteria Physical Exam (per Admitting): General Appearance: no apparent distress Head: normocephalic, atraumatic Neck: supple, no adenopathy, trachea midline Respiratory/Chest: chest non-tender, lungs clear, normal breath sounds Cardiovascular: regular rate, rhythm Abdomen/GI: normal bowel sounds, non tender, soft Back: no CVA tenderness Extremities/Musculoskelatal: normal capillary refill Neurologic/Psych: no motor/sensory deficits, alert, normal mood/affect, oriented x 3 Skin: normal color, warm/dry, no rash Lymphatic: no adenopathy Hospital Course ACUTE PYELONEPHRITIS : Patient presented with fever, chills, right flank pain, vomiting Clinically improved after IV antibiotics S/P IV Rocephin for 3 days >> Will switch to PO Levaquin Urine culture: E.coli Blood culture x 2- negative ELEVATED TROPONIN, Likely demand ischemia secondary to infection No cardiac symptoms, no prior cardiac history Troponin- 0.031, 1.44, 0.083 trended down ECHO: New diagnosis of Right to left interatrial shunt, Severe TR, EF 65-70%, No wall motion abnormalities Needs FRANK for further evaluation as outpatient. Plan to get FRANK as outpatient after current infection resolves Plan to follow up with and plan to get FRANK: on 04/26/16 Discussed with by Vimal during hospitalization NIRANJAN on CKD-III Resolved Likely prerenal secondary to vomiting PANCYTOPENIA/ THROMBOCYTOPENIA , ACUTE Likely secondary to infection No signs of active bleeding Monitor closely Improved HYPOTHYROIDISM : Continue levothyroxine CODE STATUS: full code DVT PROPHYLAXIS : SCDs patient has thrombocytopenia DISPOSITION ; Plan to discharge home today Follow up with Dr Mendenhall on 04/07/16 at 11:10 AM Follow up with , Cardiology on 04/26/16 at 1:45 pm for FRANK as outpatient Total time spent on discharge = This includes examination of the patient, discharge planning, medication reconciliation, and communication with other providers. Discharge Instructions Discharge Instructions Admission Reason for Admission: Elevated Troponin, Uti Discharge Discharge Diagnosis / Problem: Acute Pyelonephritis Discharge Goals Goal(s): Decrease discomfort, Improve function Activity Recommendations Activity Limitations: as noted below (Can resume to work on 04/13/16. Patient has been hospitalized from 04/09/16 to 03/11/16) Exercise/Sports Limitations: as tolerated . Instructions / Follow-Up Instructions / Follow-Up Follow up with on 04/07/16 Follow up with (Cardiology) on 04/26/16 at 1:45pm and get FRANK as outpatient Current Hospital Diet Patient's current hospital diet: AHA Diet (Heart Healthy) Discharge Diet Recommended Diet: AHA Diet (Heart Healthy) Pending Studies Studies pending at discharge: no Laboratory Results Lipid Panel Test 04/10/16 06:53 Range/Units Triglycerides Level 92 0-150 mg/dl Cholesterol Level 144 0-200 mg/dl HDL Cholesterol 55 mg/dl Cholesterol/HDL Ratio 2.6 LDL Cholesterol, Calculated 71 mg/dl Work Instructions Return To Work: 2 days (Can resume to work on 04/13/16. Patient has been hospitalized from 04/09/16 to 03/11/16) Medical Emergencies . Who to Call and When: Medical Emergencies: If at any time you feel your situation is an emergency, please call 911 immediately. . Non-Emergent Contact Non-Emergency issues call your: Primary Care Provider . . "Provider Documentation" section prepared by Tam Kim. VTE Core Measure Inpt VTE Proph given/why not?: SCD's
[2016-04-11 11:14] VITALS: BP 108/63; PULSE 66; TEMP 36.8; O2SAT 97
[2016-08-31] MEDS ORDERED: CPR500 PO (12:38)
== END 2016-04-11 12:20 | disposition home or self-care (01) | DRG 690 ==
LOC: ENRESERVDT → ENRESERVTM → EDBD 02:31 → C.EDB 02:35 → C.MED 05:11
PROVIDERS: ADMIT Hospitalist; ATTEND Internal Medicine
DX: N10 Acute pyelonephritis (principal); D61.818 Other pancytopenia; N17.9 Acute kidney failure, unspecified; N18.3 Chronic kidney disease, stage 3 (moderate); E86.0 Dehydration; D69.59 Other secondary thrombocytopenia; T36.95XA Adverse effect of unspecified systemic antibiotic, initial encounter; E03.9 Hypothyroidism, unspecified; E86.1 Hypovolemia

== ENCOUNTER → 2016-05-23 | Outpatient (CLI) | payer OTHER ==
[~2016-05-23] MED LIST changes: +CALC1TAB56 PO; +CHOL1000 PO; -CLTP PO; +CPR500 PO; -LEVO-366 PO; +LEVO-459 PO; +LEVO150T PO; -PRED20TA PO; -SYN137 PO
--- NOTE | 2016-05-24 12:39 | MAMMOGRAPHY REPORT ---
BILATERAL DIGITAL SCREENING MAMMOGRAM TOMOSYNTHESIS WITH CAD: 05/23/2016 CLINICAL HISTORY: Routine screening. Patient has no complaints. TECHNIQUE: Breast tomosynthesis in addition to standard 2D mammography was performed. Current study was also evaluated with a Computer Aided Detection (CAD) system. COMPARISON: Comparison is made to exams dated: 05/18/2015 mammogram, 05/06/2013 mammogram, 05/14/2014 mammogram, 06/09/2015 mammogram, 03/25/2010 mammogram, and 03/24/2009 mammogram - [facility]. BREAST COMPOSITION: There are scattered areas of fibroglandular density in both breasts. FINDINGS: The right breast asymmetry is no longer identified, confirming benign fibroglandular tissu e. There are a few benign calcifications in the breasts. No suspicious mass, architectural distort ion or cluster of suspicious microcalcifications is seen. IMPRESSION: ACR BI-RADS CATEGORY 1: NEGATIVE There is no mammographic evidence of malignancy. A 1 year screening mammogram is recommended. The p atient will receive written notification of the results. Approximately 10% of breast cancers are not detected with mammography. A negative mammographic repor t should not delay biopsy if a clinically suggestive mass is present. Erica Lora M.D. ay/:05/23/2016 16:51:43 [employer] Operator: Grace TYSON(Paul)(Justo), [facility] letter sent: Normal 1/2 BI-RADS Code: ACR BI-RADS Category 1: Negative
== END | disposition home or self-care (01) ==
LOC: C.MAMM 14:41
PROVIDERS: ATTEND Family Medicine
DX: Z12.31 Encounter for screening mammogram for malignant neoplasm of breast (principal)

== ENCOUNTER 2016-08-29 10:23 | Inpatient (IN) | payer OTHER ==
[2016-08-29] VITALS (37 sets, daily range): BP systolic 98–130; BP diastolic 54–91; PULSE 107–119; TEMP 37.1; O2SAT 90–99; Ht 248.9 cm; Wt 62.2 kg
[~2016-08-29] VITALS: Ht 248.9 cm; Wt 62.2 kg
[~2016-08-29 10:23] MED LIST changes: -CPR500 PO
[2016-08-29] MEDS ORDERED: SODIUM CHLORIDE 0.9% 1000ML 500 ML IV STA (11:16)
[2016-08-29] MEDS ORDERED: ACETAMINOPHEN 325 MG SUPP PR STA (11:16)
--- NOTE | 2016-08-29 11:33 | DIAGNOSTIC IMAGING REPORT ---
SINGLE VIEW CHEST CLINICAL HISTORY: Fever. Hypotension FINDINGS: An AP, portable, upright chest radiograph is compared to study dated 04/09/2016. The cardiomediastinal silhouette is unremarkable. Linear atelectasis is seen in the lower lungs bilaterally. There is elevation of the right hemidiaphragm. No airspace consolidation is identified typical for pneumonia and there is no large pleural effusion. No pneumothorax is seen. The skeletal structures are osteopenic. The bony thorax is grossly intact. IMPRESSION: No acute cardiopulmonary abnormality. Electronically signed by: Chintan Jovel M.D. 08/29/2016 11:32 AM Dictated Date/Time: 08/29/2016 11:31 AM
[2016-08-29 11:58] LABS: INR 1.1 (0.9-1.1); PARTIAL THROMBOPLASTIN RATIO 1.2
[2016-08-29] MEDS ORDERED: ACETAMINOPHEN 1000 MG/100 ML IV IV ONE (11:59)
[2016-08-29] MEDS ORDERED: ACETAMINOPHEN IV 1,000 MG in EMPTY BAG 0 ML IV ONE (12:00)
[2016-08-29] MEDS ORDERED: SODIUM CHLORIDE 0.9% 1000ML 1,000 ML IV ONE ×2 (12:00→13:15)
[2016-08-29 12:17] LABS: MANUAL MICROSCOPIC REQUIRED? YES; URINE APPEARANCE CLOUDY (CLEAR); URINE COLOR AMBER; URINE NITRITE POS (NEG); URINE PH 5.5 (4.5-7.5); URINE SPECIFIC GRAVITY 1.015 (1.000-1.030); UROBILINOGEN NEG (NEG)
[2016-08-29 12:19] LABS: ALB/GLOB RATIO 0.8 (0.9-2); BUN/CREATININE RATIO 25.4 (10-20); CALCIUM 8.3 mg/dl (8.5-10.1); CREATININE 2.4 mg/dl (0.60-1.20); MAGNESIUM 1.3 mg/dl (1.8-2.4); POTASSIUM 2.9 mmol/L (3.5-5.1)
[2016-08-29 12:24] LABS: REVIEW REQ? NO; URINE BILIRUBIN 2+ (NEG)
[2016-08-29 12:27] LABS: URINE BACTERIA 2+ (NEG); URINE RBC >30 /hpf (0-4); URINE WBC >30 /hpf (0-5)
[2016-08-29 12:28] LABS: ZZUR CULT IF INDIC CLEAN CATCH YES
[2016-08-29 12:46] LABS: HEMATOCRIT 37.4 % (37-47); MEAN CORPUSCULAR HEMOGLOBIN 31.3 pg (25-34); MEAN CORPUSCULAR HGB CONC 35.6 g/dl (32-36); PLATELET COUNT 73 K/uL (130-400); RED BLOOD COUNT 4.25 M/uL (4.2-5.4); WHITE BLOOD COUNT 6.82 K/uL (4.8-10.8)
--- NOTE | 2016-08-29 12:57 | DIAGNOSTIC IMAGING REPORT ---
KUB Clinical history: Nausea and vomiting. Diarrhea. FINDINGS: 2 AP supine abdominal radiographs are obtained. Correlation is made with abdominal ultrasound dated 11/30/2005. There is a 9 mm calcification seen projecting along the course of the right ureter below the right transverse process of L3. A ureteral calculus is not excluded. A punctate calcification projects over the left kidney. No calcifications are seen projecting over The course of the left ureter. There are mildly distended and gas-filled loops of small bowel identified. These measure up to 3.2 cm. Gas and stool are noted in the colon. No evidence of intraperitoneal free air is seen. The skeletal structures are osteopenic. The bony structures appear intact. Mild arthritic changes noted in the hips. A large degenerative geode is suggested in the right acetabulum. IMPRESSION: 1. A 9 mm calcification projects over the right proximal ureter below the right transverse process of L3. An obstructing ureteral calculus is suspected. Correlation with clinical findings and urinalysis will be required. 2. A punctate calcification projects over the lower pole of the left kidney. 3. There are mildly distended and gas-filled loops of small bowel. No high-grade bowel obstruction is identified. This is nonspecific, and could represent low-grade/developing obstruction, ileus, or possibly a nonspecific enteritis. Clinical correlation will be required. Electronically signed by: Chintan Jovel M.D. 08/29/2016 12:56 PM Dictated Date/Time: 08/29/2016 12:52 PM
[2016-08-29] MEDS ORDERED: CEFTRIAXONE SOD INJ 1 GM ADDVIAL IV STA (13:03)
[2016-08-29] MEDS ORDERED: POTASSIUM CHLR 10 MEQ / WTR 10 MEQ in PREMIXED WATER 100 ML IV STA (13:03)
[2016-08-29] MEDS ORDERED: POTASSIUM CHLORIDE 10 MEQ / 100ML WTR IV ONE (13:08)
[2016-08-29 13:24] LABS: COMPLETE YES; DOHLE BODIES 1+; EOSINOPHIL % 0.9 %; LYMPH ABS # 0.18 K/uL (1.2-3.4); LYMPHOCYTE % 2.6 %; META ABS # 0.41 K/uL (0-0); NEUTROPHILS % 88.8 %; PLT ESTIMATE DECREASED; VACUOLIZATION 3+
[2016-08-29] MEDS ORDERED: SODIUM CHLORIDE 0.9% 1000ML 1,000 ML IV STA ×2 (14:25→15:18)
[2016-08-29] MEDS ORDERED: NOREPINEPHRINE BIT INJ 8 MG in DEXTROSE 5% 500ML 500 ML IV STA (14:42)
--- NOTE | 2016-08-29 14:56 | DIAGNOSTIC IMAGING REPORT ---
SINGLE VIEW CHEST CLINICAL HISTORY: Central venous catheter placement FINDINGS: An AP, portable, upright chest radiograph is compared to study performed earlier the same day 08/29/2016. The examination is degraded by portable technique and patient rotation. A right internal jugular central venous catheter has been placed. The tip of the catheter projects over the SVC. The cardiomediastinal silhouette is unremarkable. Linear atelectasis is seen in the lower lungs bilaterally. There is elevation of the right hemidiaphragm. No airspace consolidation is identified typical for pneumonia and there is no large pleural effusion. No pneumothorax is seen. The skeletal structures are osteopenic. The bony thorax is grossly intact. IMPRESSION: 1. A right internal jugular central venous catheter has been placed. No pneumothorax is identified post procedure. 2. No acute cardiopulmonary abnormality is identified. Electronically signed by: Chintan Jovel M.D. 08/29/2016 2:54 PM Dictated Date/Time: 08/29/2016 2:53 PM
--- NOTE | 2016-08-29 15:22 | EMERGENCY ROOM VISIT NOTE ---
ED Visit Note First contact with patient: 11:02 I originally saw the patient after the PA had seen/evaluated her and placed orders. Pt with Gi symptoms and clinical dehydration, meeting sepsis criteria, appropriate orders placed by the PA initially for labs/cultures and xrays. Pt alert, and after 500 ml, BP began to improved and pt symptomatically reported some improvement already. Asking for ice chips. Her abdomen on my initial exam was soft/NT/ND without r/g, no flank pain and no complaints. At that time pt felt possibly had gastroenteritis leading to significant dehydration which based on her description and exam seemed probable. PA reported BP down again and I advised additional fluids be given. Urine obtained and determined to be likely source given lack of pulmonary findings or other focal symptoms. I advised the PA to review pt's old cultures prior to ordering antibiotics which he did and ordered rocephin which was reasonable at the time. As pt reported improved symptoms into her 3rd liter of IVF i was concerned about persistent hypotension and discussed central line placement with her at bedside. She was AAO, verbalized understanding, was tolerating ice chips at this time, and was agreeable with signing consent. I ordered a 4th liter of IVF as I prepped for central line placement following consent signed at bedside. Discussed with pt need for ICU admission and pressors at that time. 1400: At this time I performed a central line placement. Please see the procedure note below for further details: Central Venous Catheter: Indication: Hypotension Catheter type: Triple lumen Location: Right IJ Verbal consent was obtained after the risks and benefits were explained, including but not limited to pneumothorax, hemothorax, vessel injury, bleeding, scarring, infection, pain, and bone/joint/nerve damage. At this time, the risks of the procedure are less than the risks of NOT performing the procedure. A time out was taken and the correct patient and site identified. The patient was placed in the supine position and the skin was prepped in the standard fashion with chlorhexidine and full sterile drapes applied. The proper landmarks were identified with ultrasound, anesthetized with 1% lidocaine without epinephrine, and the needle was inserted through the skin in the standard fashion while directing visualizing on US. The needle was carefully advanced into blood vessel lumen under ultrasound guidance. The guidewire was placed on a second attempt after resistance met on initial attempt at advancement. The vessel is dilated and the catheter was placed. It was sutured into position. There was good blood return from all ports and all ports flushed easily during which patient reported no distress or discomfort. The patient tolerated the procedure well and there were no complications. Post procedure x-ray was normal with appropriate line placement and no pneumothorax reviewed by myself and radiology. 2:30: Discussed with Dr. Ford for ICU admission. 2:40: Discussed with Dr. Kim. While reviewing pt's information and work ordered by the PA and discussing the case, the mention of a possible calculus on the KUB was noted and I told him I would order a CT and contact urology. This was not originally brought to my attention or mentioned by the PA who initially evaluated the patient. 1500: Discussed case with Dr. Lora. He agrees with CT. Would like notified as soon as CT has been completed. 1610: I spoke with Dr. Lora again at this time. We discussed the patient's case. He will take the patient to the OR. 1611: I reassessed the patient at this time. She is doing well and resting more comfortably. Nursing was titrating up levophed per protocol. I updated her on the results and treatment plan. She expressed understanding and verbalized agreement. Pt states thrombocytopenia is chronic, also states she has never had prior kidney dysfunction. Remote hx of stone 10 years ago which did not require surgery. Pt dx: septic shock UTI obstructing ureterolithiasis ARF thrombocytopenia dehydration I have personally spent 45 minutes of critical care time in the direct management of this patient. This includes bedside care, interpretation of diagnostic studies, and testing, discussion with consultants, patient, and family members, and other required patient management activities. This 45 minutes is in excess of all separately billable procedures.
[2016-08-29] MEDS ORDERED: CEFEPIME IV 2,000 MG in DEXTROSE 5% 100ML 100 ML IV STA (15:24)
[2016-08-29] MEDS ORDERED: MAGNESIUM SULFATE 1GM / D5W 1 GM BAG IV STA (15:25)
[2016-08-29] MEDS ORDERED: SODIUM CHLORIDE 0.9% 1000ML 1,000 ML IV SCH (15:40)
--- NOTE | 2016-08-29 15:44 | Urology Consultation ---
History General Date of Service: Aug 29, 2016. Primary Care Physician: Lashawn Mendenhall DO History of Present Illness Emergent consult called for septic shock with suspected urinary source - pt presented with relatively non-specific symptoms but overall acute illness - hypotensive and tachycardic necessitating central venous access, IV resuscitation, and vasopressors - challenging to achieve complete stability - had a CXR and AXR as part of the initial evaluation - AXR appears to show a 9mm mid ureteral stone on the right - raising significant concerns that this may be the underlying cause of her illness - she does have a remote hx of UTIs, but nothing of this nature - no prior hx of stones - surprisingly - she has no leukocytosis - UA is nit positive - cr is elevated CT confirms the prior AXR findings, with a right sided proximal ureteral calc and moderate inflammation around the right kidney. 08/29/16 11:00 Red Blood Count 4.25, Mean Corpuscular Volume 88.0, Mean Corpuscular Hemoglobin 31.3, Mean Corpuscular Hemoglobin Concent 35.6 08/29/16 11:35 Test 08/29/16 11:00 08/29/16 11:35 08/29/16 11:39 08/29/16 12:00 White Blood Count 6.82 K/uL (4.8-10.8) Red Blood Count 4.25 M/uL (4.2-5.4) Hemoglobin 13.3 g/dL (12.0-16.0) Hematocrit 37.4 % (37-47) Mean Corpuscular Volume 88.0 fL (80-100) Mean Corpuscular Hemoglobin 31.3 pg (25-34) Mean Corpuscular Hemoglobin Concent 35.6 g/dl (32-36) Platelet Count 73 K/uL (130-400) RDW Standard Deviation 45.7 fL (36.4-46.3) RDW Coefficient of Variation 14.8 % (11.5-14.5) Neutrophils % (Manual) 88.8 % Lymphocytes % (Manual) 2.6 % Monocytes % (Manual) 1.7 % Eosinophils % (Manual) 0.9 % Metamyelocytes % 6.0 % Neutrophils # (Manual) 6.06 K/uL (1.4-6.5) Total Absolute Neutrophils 6.06 K/uL (1.4-6.5) Lymphocytes # (Manual) 0.18 K/uL (1.2-3.4) Total Absolute Lymphocytes 0.18 K/uL (1.2-3.4) Monocytes # (Manual) 0.12 K/uL (0.11-0.59) Eosinophils # (Manual) 0.06 K/uL (0-0.5) Metamyelocytes # 0.41 K/uL (0-0) Toxic Vacuolation 3+ Dohle Bodies 1+ Platelet Estimate DECREASED Prothrombin Time 12.0 SECONDS (9.0-12.0) Prothromb Time International Ratio 1.1 (0.9-1.1) Activated Partial Thromboplast Time 30.5 SECONDS (21.0-31.0) Partial Thromboplastin Ratio 1.2 Anion Gap 11.0 mmol/L (3-11) Est Creatinine Clear Calc Drug Dose 19.7 ml/min Estimated GFR () 24.6 Estimated GFR (Non- 21.2 BUN/Creatinine Ratio 25.4 (10-20) Calcium Level 8.3 mg/dl (8.5-10.1) Magnesium Level 1.3 mg/dl (1.8-2.4) Total Bilirubin 5.5 mg/dl (0.2-1) Aspartate Amino Transf (AST/SGOT) 34 U/L (15-37) Alanine Aminotransferase (ALT/SGPT) 15 U/L (12-78) Alkaline Phosphatase 367 U/L (45-117) Total Protein 5.8 gm/dl (6.4-8.2) Albumin 2.6 gm/dl (3.4-5.0) Globulin 3.2 gm/dl (2.5-4.0) Albumin/Globulin Ratio 0.8 (0.9-2) Bedside Lactic Acid Venous 3.65 mmol/L (0.90-1.70) Urine Color YONNY Urine Appearance CLOUDY (CLEAR) Urine pH 5.5 (4.5-7.5) Urine Specific [place] 1.015 (1.000-1.030) Urine Protein 2+ (NEG) Urine Glucose (UA) NEG (NEG) Urine Ketones NEG (NEG) Urine Occult Blood 3+ (NEG) Urine Nitrite POS (NEG) Urine Bilirubin 2+ (NEG) Urine Urobilinogen NEG (NEG) Urine Leukocyte Esterase LARGE (NEG) Urine RBC >30 /hpf (0-4) Urine WBC >30 /hpf (0-5) Urine Epithelial Cells 5-10 /lpf (0-5) Urine Bacteria 2+ (NEG) Urine Granular Casts 1-5 /lpf (0) Test 08/29/16 14:50 Laboratory Labs were reviewed and are within normal limits unless listed below. Labs are available in the chart and at [facility] Problem List Medical Problems: (1) Sepsis Status: Acute Past History hypothyroidism, urinary tract infection Pt had a problem w anesthesia?: No Family History FHx: cancer Social History Hx Tobacco Use In Past Year?: No Marital status: Occupation status: employed Immunizations History of Influenza Vaccine: No Influenza Vaccine Date: Dec 13, 2006 History of Tetanus Vaccine?: Unknown History of Pneumococcal: No History of Hepatitis B Vaccine: Unknown History of MDRO No Allergies Coded Allergies: Flu Virus Vaccine (Verified Allergy, Unknown, "my red blood cells drop", ) Latex1 -Allergic Contact Dermititis (Verified Allergy, Unknown, gets rash , 08/29/16) Medications Home Medications: Home Meds and Scripts Medications Dose Route/Sig Max Daily Dose Days Date Category Synthroid (Levothyroxine Sodium) 150 Mcg Tab 1 Tab PO DAILY 30 04/09/16 Reported Citracal Calcium+D Slow R (Calcium-Magnesium W/ Vitamin D) 1 Tab Tab 1 Tab PO DAILY 04/09/16 Reported Vitamin D3 (Cholecalciferol) 1,000 Unit Tab 1 Tab PO DAILY 90 04/09/16 Reported Ursodiol 300 Mg Cap 600 Mg PO BID 04/09/16 Reported Inpatient Medications: Current Inpatient Medications Medications (Trade) Dose Ordered Sig/Alan Route Start Time Stop Time Status Last Admin Dose Admin Sodium Chloride 1,000 ml @ 250 mls/hr Q4H STAT IV 08/29/16 15:18 08/29/16 19:17 Cefepime HCl 2000 mg/Dextrose 122.6 ml @ 200 mls/hr NOW STAT IV 08/29/16 15:24 08/29/16 16:00 Magnesium Sulfate (Magnesium Sulfate) 2 gm NOW STAT IV 08/29/16 15:25 08/29/16 15:26 UNV Review of Systems Review of Systems Constitutional: + fever, + chills Eyes: No see HPI, No blurred vision, No double vision, No eye pain, No loss of night vision, No problem reported Neurological: No see HPI, No dizzy, No passing out, No numbness/tingling, No seizures, No problem reported Gastrointestinal: + abdominal pain Cardiovascular: + problem reported (tachycardia), No see HPI, No heart murmur, No chest pain, No angina, No irregular heartbeat, No palpitations, No swelling ankles/feet Respiratory: No see HPI, No shortness of breath, No wheezing, No coughing up blood, No chronic cough, No problem reported Skin: No see HPI, No rash, No boils, No dry skin, No problem reported Musculoskeletal: No see HPI, No joint pain, No neck pain, No back pain, No arthritis, No problem reported Blood / Lymphatic: No see HPI, No bleed easily, No bruise easily, No swollen glands, No problem reported Ears / Nose / Throat: No see HPI, No hearing loss, No sinus, No hoarse voice, No sore throat, No problem reported Psychologic / Mental: No see HPI, No nervous, No trouble remembering, No difficulty sleeping, No problem reported Female : + infections, + kidney stones All Other Systems: Reviewed and Negative Physical Exam Vital Signs: Vital Signs Past 12 Hours Date Time Temp Pulse Resp B/P (MAP) Pulse Ox O2 Delivery O2 Flow Rate FiO2 08/29/16 15:16 110 08/29/16 14:30 105 93/52 96 08/29/16 14:23 75/48 08/29/16 14:00 85/51 08/29/16 13:30 76/49 08/29/16 13:23 114 95 08/29/16 13:21 74/47 08/29/16 13:07 76/46 08/29/16 13:06 37.0 112 19 76/46 94 08/29/16 13:04 82/47 08/29/16 12:53 116 94 08/29/16 12:52 78/50 08/29/16 12:23 117 26 94 08/29/16 12:03 121 19 89/55 95 08/29/16 12:02 89/55 08/29/16 11:57 95 08/29/16 11:57 38.5 08/29/16 11:23 121 28 08/29/16 10:53 128 08/29/16 10:33 38.3 138 18 87/56 95 Room Air Physical Exam: General Appearance: + severe distress (acutely ill, on pressors) Eyes: bilateral eyes normal inspection ENT: hearing grossly normal Neck: no adenopathy Respiratory/Chest: no respiratory distress, no accessory muscle use Cardiovascular: + tachycardia Gastrointestinal: Abdomen: normal abdomen Renal: cva tenderness (right) Extremities: no pedal edema, no calf tenderness Neurologic/Psychiatric: no motor/sensory deficits, alert, normal mood/affect Skin: warm/dry Lymphatic: no adenopathy Assessment & Plan Assessment & Plan Right ureteral calculus; urosepsis with shock - necessitating pressor support - situation reviewed with the patient and family - consents completed for emergent cystoscopy and ureteral stent placement - I have discussed that if I am unable to place a stent, she will need to be transported immediately to a facility with interventional radiology
[2016-08-29] MEDS ORDERED: ONDANSETRON INJ 2 MG/ML 2 ML VIAL IV PRN ×2 (15:45→16:00)
[2016-08-29] MEDS ORDERED: ACETAMINOPHEN 325 MG TAB PO PRN (15:45)
[2016-08-29] MEDS ORDERED: ALBUT/IPRATROP 3MG/0.5MG NEB 3 ML VIAL INH PRN (15:45)
[2016-08-29] MEDS ORDERED: CONRAY 30% 150ML BOTTLE ONE (15:46)
[2016-08-29] MEDS ORDERED: EpHEDrine SULFATE INJ 50 MG/ML AMP IV PRN (16:00)
[2016-08-29] MEDS ORDERED: PHENYLEPHRINE 100MCG/ML 5ML SYR IV PRN (16:00)
[2016-08-29] MEDS ORDERED: ATROPINE SULFATE 0.1 MG/ML 5ML SYR IV PRN (16:00)
[2016-08-29] MEDS ORDERED: POTASSIUM CHLORIDE INJ 20 MEQ in SODIUM CHLORIDE 0.9% 1000ML 1,000 ML IV SCH (16:15)
--- NOTE | 2016-08-29 16:21 | DIAGNOSTIC IMAGING REPORT ---
CT SCAN OF THE ABDOMEN AND PELVIS WITHOUT IV CONTRAST CLINICAL HISTORY: Sepsis. Diarrhea and vomiting. COMPARISON STUDY: KUB dated 08/29/2016. TECHNIQUE: CT scan of the abdomen and pelvis is performed from the lung bases to the proximal femora. Images are reviewed in the axial, sagittal, and coronal planes. IV contrast was not administered for this examination as per the referring clinician. Automated dose control exposure was utilized. CT DOSE: 276.31 mGy.cm FINDINGS: Lung bases: The heart is normal in size and without pericardial effusion. There are trace pleural effusions with dependent atelectasis. Liver: The unenhanced liver is enlarged, measuring 18.5 cm in length. The liver demonstrates diffusely diminished attenuation consistent with hepatic steatosis. There is no intrahepatic biliary ductal dilatation. Gallbladder: Unremarkable. Spleen: The spleen is mildly enlarged measuring 13.6 cm in length. Pancreas: The unenhanced pancreas is grossly unremarkable. Adrenal glands: Unremarkable. Kidneys: The unenhanced kidneys demonstrate mild cortical atrophy. There is a 9 mm obstructing calculus in the proximal left ureter seen at the level of L3-L4 seen on axial image #231. An additional punctate calculus is seen in the right ureter just above the obstructing stone. This causes moderate right-sided hydronephrosis. No additional calculi are identified in the right kidney. There are 2 tiny nonobstructing left renal calculi measuring up to 3 mm. There is no left-sided hydronephrosis. There is associated right-sided perinephric stranding and trace perinephric fluid. There is no evidence of contour deforming renal mass lesion. Abdominal vasculature: The abdominal aorta is normal in course and caliber noting mild to moderate atherosclerotic calcification. Bowel: The small bowel and colon are normal in course and caliber. The appendix is well-visualized and normal. Peritoneum: There is no intraperitoneal free air or abdominal ascites. There is a fat-containing umbilical hernia. Lymphadenopathy: None. Pelvic viscera: The bladder, uterus, and adnexa are normal as visualized. Skeletal structures: The skeletal structures are osteopenic. Mild lumbosacral spondylosis is observed. No lytic or blastic lesions are seen. IMPRESSION: 1. There is a 9 mm obstructing calculus in the proximal right ureter. This causes moderate right hydroureteronephrosis. There is associated right-sided perinephric stranding and fluid. 2. An additional punctate calculus is seen in the right proximal ureter just above the obstructing stone. 3. No additional stones are seen in the right kidney. There are 2 small nonobstructing left renal calculi. 4. Splenomegaly. 5. Hepatomegaly and hepatic steatosis. 6. Trace pleural effusions with dependent atelectasis. 7. Additional findings as above. Electronically signed by: Chintan Jovel M.D. 08/29/2016 4:20 PM Dictated Date/Time: 08/29/2016 4:13 PM
--- NOTE | 2016-08-29 16:27 | History and Physical ---
History & Physical Date & Time of Service: Aug 29, 2016 at 16:12 Chief Complaint: Vomiting, Dehydration, Chills Primary Care Physician: Lashawn Mendenhall DO History of Present Illness Source: patient, family Patient is a 60 Yr female with PMH of Primary Biliary cirrhosis, Hypothyroidism , autoimmune hemolytic anemia, Nephrolithiasis and h/o UTI presents with history of nausea, vomiting, abdominal pain, diarrhea, fever and dizziness since last Sunday. She reports abdominal pain is generalized in location, dull, non radiating and no aggravating/relieving factors. Reports diarrhea which is loose, watery, non bloody since 3 days. Has poor appetite secondary to nausea, vomiting. She states fever with chills started this morning and was 102 F when checked at home. Denies any burning micturition, hematuria, flank pain, chest pain, cough, wheezing, headache, palpitations, pedal edema, orthopnea. Reports having SOB on exertion and dizziness with ambulation. She was found to be hypotensive despite aggressive fluid transfusions and so was started on Levophed while in ED. KUB was suggestive of right proximal ureteral obstructing stone, Urology was consulted and patient is being planned for emergent cystoscopy and possible stent placement. Past Medical/Surgical History Medical Problems: (1) delivery delivered Status: Resolved Surgical Problems: (1) Benign tumor Status: Resolved Family History FHx: cancer Not contributory Social History Smoking Status: Former Smoker (Quit in 1976) Alcohol Use: socially Drug Use: none Marital Status: Occupational Status: employed Immunizations History of Influenza Vaccine: No Influenza Vaccine Date: Dec 13, 2006 History of Tetanus Vaccine?: Unknown History of Pneumococcal: No History of Hepatitis B Vaccine: Unknown Multi-Drug Resistant Organisms History of MDRO: No Allergies Coded Allergies: Flu Virus Vaccine (Verified Allergy, Unknown, "my red blood cells drop", ) Latex1 -Allergic Contact Dermititis (Verified Allergy, Unknown, gets rash , 08/29/16) Home Medications Scheduled Calcium-Magnesium W/ Vitamin D (Citracal Calcium+D Slow R), 1 TAB PO DAILY Cholecalciferol (Vitamin D3), 1 TAB PO DAILY Levothyroxine Sodium (Synthroid), 1 TAB PO DAILY Ursodiol (Ursodiol), 600 MG PO BID Review of Systems See HPI for pertinent positives & negatives. A total of 10 systems reviewed and were otherwise negative. Physical Exam Vital Signs Date Time Temp Pulse Resp B/P (MAP) Pulse Ox O2 Delivery O2 Flow Rate FiO2 08/29/16 15:16 110 08/29/16 14:30 105 93/52 96 08/29/16 14:23 75/48 08/29/16 14:00 85/51 08/29/16 13:30 76/49 08/29/16 13:23 114 95 08/29/16 13:21 74/47 08/29/16 13:07 76/46 08/29/16 13:06 37.0 112 19 76/46 94 08/29/16 13:04 82/47 08/29/16 12:53 116 94 08/29/16 12:52 78/50 08/29/16 12:23 117 26 94 08/29/16 12:03 121 19 89/55 95 08/29/16 12:02 89/55 08/29/16 11:57 95 08/29/16 11:57 38.5 08/29/16 11:23 121 28 08/29/16 10:53 128 08/29/16 10:33 38.3 138 18 87/56 95 Room Air General Appearance: WD/WN, no apparent distress Head: normocephalic, atraumatic Eyes: normal inspection, PERRL, EOMI ENT: normal ENT inspection, hearing grossly normal Neck: supple, trachea midline, + pertinent finding (R IJ line) Respiratory/Chest: chest non-tender, normal breath sounds, no respiratory distress, + pertinent finding (B/L Basal creps) Cardiovascular: regular rate, rhythm, no edema, no murmur, + tachycardia Abdomen/GI: normal bowel sounds, non tender, soft, + pertinent finding (B/L flank tender) Back: normal inspection Extremities/Musculoskelatal: normal inspection, no pedal edema 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, no motor/sensory deficits, alert, normal mood/affect, oriented x 3 Skin: normal color, warm/dry Diagnostics Laboratory Results Results Past 24 Hours Test 08/29/16 11:00 08/29/16 11:35 08/29/16 11:39 08/29/16 12:00 Range/Units White Blood Count 6.82 4.8-10.8 K/uL Red Blood Count 4.25 4.2-5.4 M/uL Hemoglobin 13.3 12.0-16.0 g/dL Hematocrit 37.4 37-47 % Mean Corpuscular Volume 88.0 80-100 fL Mean Corpuscular Hemoglobin 31.3 25-34 pg Mean Corpuscular Hemoglobin Concent 35.6 32-36 g/dl Platelet Count 73 130-400 K/uL RDW Standard Deviation 45.7 36.4-46.3 fL RDW Coefficient of Variation 14.8 11.5-14.5 % Neutrophils % (Manual) 88.8 % Lymphocytes % (Manual) 2.6 % Monocytes % (Manual) 1.7 % Eosinophils % (Manual) 0.9 % Metamyelocytes % 6.0 % Neutrophils # (Manual) 6.06 1.4-6.5 K/uL Total Absolute Neutrophils 6.06 1.4-6.5 K/uL Lymphocytes # (Manual) 0.18 1.2-3.4 K/uL Total Absolute Lymphocytes 0.18 1.2-3.4 K/uL Monocytes # (Manual) 0.12 0.11-0.59 K/uL Eosinophils # (Manual) 0.06 0-0.5 K/uL Metamyelocytes # 0.41 0-0 K/uL Toxic Vacuolation 3+ Dohle Bodies 1+ Platelet Estimate DECREASED Prothrombin Time 12.0 9.0-12.0 SECONDS Prothromb Time International Ratio 1.1 0.9-1.1 Activated Partial Thromboplast Time 30.5 21.0-31.0 SECONDS Partial Thromboplastin Ratio 1.2 Sodium Level 142 136-145 mmol/L Potassium Level 2.9 3.5-5.1 mmol/L Chloride Level 108 98-107 mmol/L Carbon Dioxide Level 23 21-32 mmol/L Anion Gap 11.0 3-11 mmol/L Blood Urea Nitrogen 61 7-18 mg/dl Creatinine 2.40 0.60-1.20 mg/dl Est Creatinine Clear Calc Drug Dose 19.7 ml/min Estimated GFR () 24.6 Estimated GFR (Non- 21.2 BUN/Creatinine Ratio 25.4 10-20 Random Glucose 89 70-99 mg/dl Calcium Level 8.3 8.5-10.1 mg/dl Magnesium Level 1.3 1.8-2.4 mg/dl Total Bilirubin 5.5 0.2-1 mg/dl Aspartate Amino Transf (AST/SGOT) 34 15-37 U/L Alanine Aminotransferase (ALT/SGPT) 15 12-78 U/L Alkaline Phosphatase 367 45-117 U/L Total Protein 5.8 6.4-8.2 gm/dl Albumin 2.6 3.4-5.0 gm/dl Globulin 3.2 2.5-4.0 gm/dl Albumin/Globulin Ratio 0.8 0.9-2 Bedside Lactic Acid Venous 3.65 0.90-1.70 mmol/L Urine Color YONNY Urine Appearance CLOUDY CLEAR Urine pH 5.5 4.5-7.5 Urine Specific [place] 1.015 1.000-1.030 Urine Protein 2+ NEG Urine Glucose (UA) NEG NEG Urine Ketones NEG NEG Urine Occult Blood 3+ NEG Urine Nitrite POS NEG Urine Bilirubin 2+ NEG Urine Urobilinogen NEG NEG Urine Leukocyte Esterase LARGE NEG Urine RBC >30 0-4 /hpf Urine WBC >30 0-5 /hpf Urine Epithelial Cells 5-10 0-5 /lpf Urine Bacteria 2+ NEG Urine Granular Casts 1-5 0 /lpf Test 08/29/16 14:50 08/29/16 16:05 Range/Units Microbiology Results 08/29/16 Blood Culture, Received Pending 08/29/16 Blood Culture, Received Pending 08/29/16 Urine Culture, Received Pending Diagnostic Radiology CXR: : No acute cardiopulmonary abnormality. KUB: 1. A 9 mm calcification projects over the right proximal ureter below the right transverse process of L3. An obstructing ureteral calculus is suspected. Correlation with clinical findings and urinalysis will be required. 2. A punctate calcification projects over the lower pole of the left kidney. 3. There are mildly distended and gas-filled loops of small bowel. No high-grade bowel obstruction is identified. This is nonspecific, and could represent low-grade/developing obstruction, ileus, or possibly a nonspecific enteritis. Clinical correlation will be required. EKG EKG: Sinus tachycardia Impression Assessment and Plan Septic Shock Likely secondary to Urosepsis /Right ureteral calculus Admit in ICU Continue aggressive IV fluids Continue Pressors started in ED Start on broad spectrum antibiotics: IV Cefepime Blood/Urine culture Discussed with Intelligence Support Officer . Appreciate input Check cortisol/TSH levels Planned for emergent cystoscopy and possible stent placement by Urology. NPO for now Zofran PRN for nausea, vomiting NIRANJAN: ? 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 Re: Thrombocytopenia Code Status: Full Code Disposition: Admit in ICU VTE Prophylaxis VTE Risk Assessment Done? Y/N: Yes Risk Level: Low
[2016-08-29] MEDS ORDERED: MIDAZOLAM HCL 1 MG/ML 2ML VIAL ONE ×2 (16:49→16:55)
[2016-08-29] MEDS ORDERED: ACETAMINOPHEN IV 100 ML IV PRN (17:15)
--- NOTE | 2016-08-29 17:16 | [facility] Post Operative Brief Note ---
Immediate Operative Summary Operative Date Aug 29, 2016. Pre-Operative Diagnosis Right ureteral calculus, urosepsis with shock Post-Operative Diagnosis same as preop Procedure(s) Performed Cystoscopy, Placement of Right Ureteral Stent ([id number]) Surgeon Dr. Lora Paint Prep Technician Surgeon(s) none Estimated Blood Loss 0 ml Findings R prox ureteral calc. Purulent urine in the bladder. Right stent placed without incident. Specimens none Drains [id number] stent Anesthesia MAC Complication(s) None Disposition Recovery Room / PACU (stable)
--- NOTE | 2016-08-29 17:24 | [facility] Operative Report ---
Operative Report Operative Date Aug 29, 2016. Pre-Operative Diagnosis Right ureteral calculus, urosepsis with shock Post-Operative Diagnosis right ureteral stone and urosepsis with shock Procedure(s) Performed cystoscopy; right ureteral stent placement Surgeon Dr. Lora Pharmacovigilance Safety Expert Surgeon(s) none Estimated Blood Loss 0 ml Findings Purulent urine in the bladder. Right proximal ureteral stone. Appeared to move retrograde into the kidney during stent placement. Specimens none Drains [id number] stent Anesthesia MAC Complication(s) None Disposition Surgical ICU (stable) Indications sepsis; hydro; urinary tract infection; stone Description of Procedure Ms. Beltran was seen and evaluated in the ER for suspected septic shock secondary to a urinary tract infection and obstructing ureteral calculus. Imaging, labs, and history were reviewed. I subsequently recommended emergent ureteral stenting on the right and obtained appropriate consents. Following transfer into the operating room, she received appropriate sedation. Prior to arrival, she had received two doses of broad spectrum antibiotics. She was placed in dorsal lithotomy position and underwent a standard sterile prep. I passed a 22f cystoscope with 30 degree lens. Debris and pus within the bladder were noted immediately. I drained the bladder and performed a full evaluation. She had no tumors or other abnormalities aside from erythema consistent with infection. Her ureteral orifices were in orthotopic position. I cannulated the right ureteral orifice with a sensor wire and a 5F open ended catheter. Fluoroscopic evaluation revealed an opacity within the presumed location of the proximal ureter and I was able to gently manipulate the wire beyond this. She appeared to have a twist in her ureter here, however, with slight traction, the ureter seemd to straighten and the wire advanced to the kidney very easily. I noted a hydronephrotic drip prior to replacing the wire and ultimately placing a [id number] ureteral stent. There was a good curl seen in the kidney as well as within the bladder. She was reversed from anesthesia and taken to her ICU bed in stable condition. There were no complications. I attest to the content of the Intraoperative Record and any orders documented therein. Any exceptions are noted below.
--- NOTE | 2016-08-29 17:27 | Critical Care Consultation ---
Critical Care Consultation Date of Consultation: Aug 29, 2016. Attending Physician: Judy Prakash Reason for Consultation: Sepsis secondary to pyelonephritis and obstructed nephrolithiasis History of Present Illness Patient is a 60-year-old female with past medical history of primary biliary cirrhosis, hypothyroidism, autoimmune hemolytic anemia, nephrolithiasis with a history of UTI who presented with nausea vomiting abdominal pain fever and dizziness for 3 days. She's had a poor appetite secondary to nausea and vomiting. Her temperature at home was 102, she denies any burning urgency frequency flank pain. She presented to the emergency department in [facility] for further evaluation. She was found to be hypotensive and tachycardic, the hypotension continued despite adequate volume resuscitation. She was found to have a urinary tract infection and on KUB found to have what appeared to be a stone. Further CT imaging revealed an acute hydronephrosis with perinephric stranding on the right. She's been taken to the operating room by Dr. Lora of urology for cystoscopy with likely ureteral stenting. In review of her past medical record she has had several E coli urinary tract infections, all of which are pansensitive. She is initially started on Rocephin in the emergency department. This was expanded to cefepime for possible pseudomonal coverage given severe pyelonephritis and associated severe sepsis. She had a right internal jugular central venous catheter placed in the emergency department. Past Medical/Surgical History As noted above Family History FHx: cancer Social History Smoking Status: Former Smoker (Quit in 1976) Alcohol Use: socially Drug Use: none Marital Status: Housing Status: lives with family Occupation Status: employed Allergies Coded Allergies: Flu Virus Vaccine (Verified Allergy, Unknown, "my red blood cells drop", ) Latex1 -Allergic Contact Dermititis (Verified Allergy, Unknown, gets rash , 08/29/16) Home Medications Scheduled Calcium-Magnesium W/ Vitamin D (Citracal Calcium+D Slow R), 1 TAB PO DAILY Cholecalciferol (Vitamin D3), 1 TAB PO DAILY Levothyroxine Sodium (Synthroid), 1 TAB PO DAILY Ursodiol (Ursodiol), 600 MG PO BID Current Inpatient Medications Current Inpatient Medications Medications (Trade) Dose Ordered Sig/Alan Route Start Time Stop Time Status Last Admin Dose Admin Sodium Chloride 1,000 ml @ 250 mls/hr Q4H STAT IV 08/29/16 15:18 08/29/16 19:17 08/29/16 15:18 250 MLS/HR Ondansetron HCl (Zofran Inj) 4 mg ONE PRN IV 08/29/16 16:00 08/29/16 21:00 Atropine Sulfate (Atropine Sulfate 0.1MG/Ml Inj) 0.5 mg Q1M PRN IV 08/29/16 16:00 08/29/16 21:00 Ephedrine Sulfate (EpHEDrine SULFATE INJ) 5 mg Q5M PRN IV 08/29/16 16:00 08/29/16 21:00 Phenylephrine HCl (Dante-Synephrine 500MCG/5ML Syr) 100 mcg Q5M PRN IV 08/29/16 16:00 08/29/16 21:00 Acetaminophen (Tylenol Tab) 650 mg Q4H PRN PO 08/29/16 15:45 09/28/16 15:44 Norepinephrine Bitartrate 8 mg/ Dextrose 508 ml @ 0 mls/hr Q0M IV 08/29/16 15:40 09/28/16 15:39 UNV Ondansetron HCl (Zofran Inj) 4 mg Q6H PRN IV 08/29/16 15:45 09/28/16 15:44 Albuterol/ Ipratropium (Duoneb) 3 ml Q6H PRN INH 08/29/16 15:45 09/28/16 15:44 Cefepime HCl 2000 mg/Dextrose 112.5 ml @ 200 mls/hr BID IV 08/29/16 21:00 09/08/16 20:59 UNV Famotidine 20 mg/ Dextrose 102 ml @ 200 mls/hr Q12H IV 08/29/16 16:00 09/28/16 15:59 UNV Potassium Chloride 20 meq/ Sodium Chloride 1,010 ml @ 125 mls/hr Q8H5M IV 08/29/16 16:15 09/28/16 15:39 UNV Levothyroxine Sodium (Synthroid Tab) 150 mcg DAILY PO 08/30/16 09:00 09/29/16 08:59 UNV Review of Systems See above for pertinent positives & negatives. A total of 10 systems reviewed and were otherwise negative. Constitutional: + fever, + chills Abdomen: + pain, + nausea, + vomiting Physical Exam Date Time Temp Pulse Resp B/P (MAP) Pulse Ox O2 Delivery O2 Flow Rate FiO2 08/29/16 16:21 91/69 08/29/16 16:20 116 20 08/29/16 16:16 97/56 08/29/16 16:15 112 20 93 08/29/16 16:10 114 20 95/55 92 08/29/16 15:51 90/53 08/29/16 15:50 114 20 93 08/29/16 15:46 87/53 08/29/16 15:45 114 25 94 08/29/16 15:40 115 28 89/50 93 08/29/16 15:35 112 26 93 08/29/16 15:31 91/77 08/29/16 15:30 114 29 92 08/29/16 15:26 81/39 08/29/16 15:25 113 30 92 08/29/16 15:21 105/56 08/29/16 15:20 115 22 95 08/29/16 15:19 98/58 08/29/16 15:16 110 08/29/16 15:16 78/64 08/29/16 15:15 111 28 97 08/29/16 15:14 96/57 08/29/16 15:10 112 25 95 08/29/16 15:05 115 28 94 08/29/16 15:00 112 26 85/49 94 08/29/16 14:55 112 92 08/29/16 14:30 105 93/52 96 08/29/16 14:23 75/48 08/29/16 14:00 85/51 08/29/16 13:30 76/49 08/29/16 13:23 114 95 08/29/16 13:21 74/47 08/29/16 13:07 76/46 08/29/16 13:06 37.0 112 19 76/46 94 08/29/16 13:04 82/47 08/29/16 12:53 116 94 08/29/16 12:52 78/50 08/29/16 12:23 117 26 94 08/29/16 12:03 121 19 89/55 95 08/29/16 12:02 89/55 08/29/16 11:57 95 08/29/16 11:57 38.5 08/29/16 11:23 121 28 08/29/16 10:53 128 08/29/16 10:33 38.3 138 18 87/56 95 Room Air Eyes: PERRLA Neck: normal range of motion, no tenderness, trachea midline, no stridor Respiratory: breath sounds normal Cardiovasular: regular rate/rhythm, normal S1S2 Abdomen: non tender, no rebound, no masses, no guarding, no organomegaly, hypoactive bowel sounds Genitourinary - Female: external genitalia normal Neuro: alert, oriented x 3 (still recovering from IV sedation) Laboratory Results Last 24 Hours Test 08/29/16 11:00 08/29/16 11:35 08/29/16 11:39 08/29/16 12:00 White Blood Count 6.82 K/uL Red Blood Count 4.25 M/uL Hemoglobin 13.3 g/dL Hematocrit 37.4 % Mean Corpuscular Volume 88.0 fL Mean Corpuscular Hemoglobin 31.3 pg Mean Corpuscular Hemoglobin Concent 35.6 g/dl Platelet Count 73 K/uL RDW Standard Deviation 45.7 fL RDW Coefficient of Variation 14.8 % Neutrophils % (Manual) 88.8 % Lymphocytes % (Manual) 2.6 % Monocytes % (Manual) 1.7 % Eosinophils % (Manual) 0.9 % Metamyelocytes % 6.0 % Neutrophils # (Manual) 6.06 K/uL Total Absolute Neutrophils 6.06 K/uL Lymphocytes # (Manual) 0.18 K/uL Total Absolute Lymphocytes 0.18 K/uL Monocytes # (Manual) 0.12 K/uL Eosinophils # (Manual) 0.06 K/uL Metamyelocytes # 0.41 K/uL Toxic Vacuolation 3+ Dohle Bodies 1+ Platelet Estimate DECREASED Prothrombin Time 12.0 SECONDS Prothromb Time International Ratio 1.1 Activated Partial Thromboplast Time 30.5 SECONDS Partial Thromboplastin Ratio 1.2 Sodium Level 142 mmol/L Potassium Level 2.9 mmol/L Chloride Level 108 mmol/L Carbon Dioxide Level 23 mmol/L Anion Gap 11.0 mmol/L Blood Urea Nitrogen 61 mg/dl Creatinine 2.40 mg/dl Est Creatinine Clear Calc Drug Dose 19.7 ml/min Estimated GFR () 24.6 Estimated GFR (Non- 21.2 BUN/Creatinine Ratio 25.4 Random Glucose 89 mg/dl Calcium Level 8.3 mg/dl Magnesium Level 1.3 mg/dl Total Bilirubin 5.5 mg/dl Aspartate Amino Transf (AST/SGOT) 34 U/L Alanine Aminotransferase (ALT/SGPT) 15 U/L Alkaline Phosphatase 367 U/L Total Protein 5.8 gm/dl Albumin 2.6 gm/dl Globulin 3.2 gm/dl Albumin/Globulin Ratio 0.8 Bedside Lactic Acid Venous 3.65 mmol/L Urine Color YONNY Urine Appearance CLOUDY Urine pH 5.5 Urine Specific [place] 1.015 Urine Protein 2+ Urine Glucose (UA) NEG Urine Ketones NEG Urine Occult Blood 3+ Urine Nitrite POS Urine Bilirubin 2+ Urine Urobilinogen NEG Urine Leukocyte Esterase LARGE Urine RBC >30 /hpf Urine WBC >30 /hpf Urine Epithelial Cells 5-10 /lpf Urine Bacteria 2+ Urine Granular Casts 1-5 /lpf Test 08/29/16 14:50 Diagnostic Results I have reviewed the chest x-ray, KUB, CT of the abdomen and pelvis as well as the individual radiology reports. Assessment & Plan Reason Critically Ill: Severe sepsis secondary to right pyelonephritis and obstructing nephrolithiasis PLAN: Neuro: Tylenol when necessary for pain control, morphine for severe pain Resp: Monitor oxygen saturation CV: Severe sepsis * Currently requiring vasoactive's * History of steroid use will give stress dose steroids 50 mg every 8 hours 3 doses Fluids/Renal: Normosol maintenance fluid at 100 ML's per hour * Acute kidney injury ID: History of Escherichia coli pansensitive, cefepime 2 g IV hopefully de- escalate to Rocephin GI/Nutrition: Clear liquids will progress as tolerated Heme: Heparin 5000 units 3 times a day Endocrine: Stress dose steroids * Accu-Cheks I have personally spent 35 minutes of critical care time in the direct management of this patient. This is a life/limb threatening event. This includes time spent evaluating patient, direct bedside care, chart review, placing orders, interpretation of diagnostic studies, discussion with consultants, patient, and family members, as well as other required patient management activities. This time is exclusive of all separately billable procedures, and teaching time and separate from and in addition to any other critical care service time.
--- NOTE | 2016-08-29 17:44 | DIAGNOSTIC IMAGING REPORT ---
INTRAOPERATIVE RADIOGRAPHS CLINICAL HISTORY: Nephrolithiasis. Right renal stent placement. Fluoroscopy time: 17 seconds. FINDINGS: 3 spot fluoroscopic views of the right abdomen from a retrograde ureterogram and stent placement procedure are presented. Correlation is made with abdominal CT performed the same day 08/29/2016. The initial image shows cannulation of the right ureter with a calculus in the right proximal ureter. The second image shows the calculus likely having been pushed back into the right renal pelvis. The final 2 images show a right ureteral stent having been deployed. IMPRESSION: Intraoperative images from a right ureteral stent placement procedure as above. See operative report for detailed findings. Electronically signed by: Chintan Jovel M.D. 08/29/2016 5:42 PM Dictated Date/Time: 08/29/2016 5:41 PM
[2016-08-29] MEDS: NORMOSOL R 1,000 ML IV SCH (17:54)
[2016-08-29] MEDS ORDERED: NOREPINEPHRINE BIT INJ 8 MG in DEXTROSE 5% 500ML 500 ML IV SCH (18:00)
--- NOTE | 2016-08-29 18:05 | Anesthesiology Progress Note ---
Anesthesia Post Op Note Date & Time Aug 29, 2016 at 18:05 Vital Signs Pain Intensity: 0 Vital Signs Past 12 Hours Date Time Temp Pulse Resp B/P (MAP) Pulse Ox O2 Delivery O2 Flow Rate FiO2 08/29/16 17:15 110 20 111/81 (91) 96 Nasal Cannula 2.0 08/29/16 17:13 37.1 116 20 112/64 (80) 94 Nasal Cannula 2.0 08/29/16 16:21 91/69 08/29/16 16:20 116 20 08/29/16 16:16 97/56 08/29/16 16:15 112 20 93 08/29/16 16:10 114 20 95/55 92 08/29/16 15:51 90/53 08/29/16 15:50 114 20 93 08/29/16 15:46 87/53 08/29/16 15:45 114 25 94 08/29/16 15:40 115 28 89/50 93 08/29/16 15:35 112 26 93 08/29/16 15:31 91/77 08/29/16 15:30 114 29 92 08/29/16 15:26 81/39 08/29/16 15:25 113 30 92 08/29/16 15:21 105/56 08/29/16 15:20 115 22 95 08/29/16 15:19 98/58 08/29/16 15:16 110 08/29/16 15:16 78/64 08/29/16 15:15 111 28 97 08/29/16 15:14 96/57 08/29/16 15:10 112 25 95 08/29/16 15:05 115 28 94 08/29/16 15:00 112 26 85/49 94 08/29/16 14:55 112 92 08/29/16 14:30 105 93/52 96 08/29/16 14:23 75/48 08/29/16 14:00 85/51 08/29/16 13:30 76/49 08/29/16 13:23 114 95 08/29/16 13:21 74/47 08/29/16 13:07 76/46 08/29/16 13:06 37.0 112 19 76/46 94 08/29/16 13:04 82/47 08/29/16 12:53 116 94 08/29/16 12:52 78/50 08/29/16 12:23 117 26 94 08/29/16 12:03 121 19 89/55 95 08/29/16 12:02 89/55 08/29/16 11:57 95 08/29/16 11:57 38.5 08/29/16 11:23 121 28 08/29/16 10:53 128 08/29/16 10:33 38.3 138 18 87/56 95 Room Air Notes Mental Status: alert / awake / arousable, participated in evaluation Pt Amnestic to Procedure: Yes Nausea / Vomiting: adequately controlled Pain: adequately controlled Airway Patency, RR, SpO2: stable & adequate BP & HR: stable & adequate Hydration State: stable & adequate Anesthetic Complications: no major complications apparent
[2016-08-29] MEDS: HYDROCORTISONE IV 50 MG in SYRINGE 0 ML IV SCH (18:15)
[2016-08-29] MEDS ORDERED: PNEUMOCOCCAL POLYSACCHARIDES 25 MCG/0.5 ML VIAL/SYR IM. ONE (18:15)
[2016-08-29] MEDS ORDERED: PNEUMOCOCCAL ADMINISTRATION CHARGE ONE (18:15)
[2016-08-29] MEDS: FAMOTIDINE IV INJ 10 MG in DEXTROSE 5% 100ML 100 ML IV SCH (18:15)
[2016-08-29 19:02] LABS: BUN/CREATININE RATIO 24.7 (10-20); CALCIUM 7.4 mg/dl (8.5-10.1); CREATININE 2.2 mg/dl (0.60-1.20); POTASSIUM 3.1 mmol/L (3.5-5.1)
[2016-08-29] MEDS ORDERED: POTASSIUM CHLR 20 MEQ / WTR 20 MEQ in PREMIXED WATER 100 ML IV SCH (20:00)
[2016-08-29] MEDS: POTASSIUM CHLORIDE 20 MEQ TABCR PO SCH ×2 (20:27→23:55)
[2016-08-29] MEDS ORDERED: CEFEPIME IV 2,000 MG in DEXTROSE 5% 100ML 100 ML IV SCH (21:00)
[2016-08-29] MEDS ORDERED: URSODIOL 300 MG CAP PO SCH (21:00)
[2016-08-29] MEDS: HEPARIN SOD 5000 UNIT/0.5 ML CARP SQ SCH (22:11)
[2016-08-30] VITALS (12 sets, daily range): BP systolic 95–122; BP diastolic 54–87; PULSE 81–99; TEMP 36.8–37; O2SAT 92–97
[2016-08-30] MEDS: HYDROCORTISONE IV 50 MG in SYRINGE 0 ML IV SCH (02:08)
[2016-08-30] MEDS: NORMOSOL R 1,000 ML IV SCH (03:50)
[2016-08-30] MEDS: FAMOTIDINE IV INJ 10 MG in DEXTROSE 5% 100ML 100 ML IV SCH (05:35)
[2016-08-30] MEDS: LEVOTHYROXINE 150 MCG TAB PO SCH (05:35)
[2016-08-30] MEDS: HEPARIN SOD 5000 UNIT/0.5 ML CARP SQ SCH ×3 (05:38→22:07)
[2016-08-30 06:36] LABS: CREATININE 1.4 mg/dl (0.60-1.20)
[2016-08-30 06:37] LABS: ALB/GLOB RATIO 0.7 (0.9-2); BUN/CREATININE RATIO 28.6 (10-20); HEMATOCRIT 27.4 % (37-47); MAGNESIUM 2.4 mg/dl (1.8-2.4); MEAN CELL VOLUME 86.4 fL (80-100); MEAN CORPUSCULAR HEMOGLOBIN 30.3 pg (25-34); MEAN PLATELET VOLUME 10.9 fL (7.4-10.4); PHOSPHORUS 2.4 mg/dl (2.5-4.9); PLATELET COUNT 42 K/uL (130-400); POTASSIUM 3.4 mmol/L (3.5-5.1); RED BLOOD COUNT 3.17 M/uL (4.2-5.4); WHITE BLOOD COUNT 13.72 K/uL (4.8-10.8)
[2016-08-30 06:50] LABS: BASO % 0.1 %; BASO ABS # 0.01 K/uL (0-0.2); COMPLETE YES; DOHLE BODIES 2+; EOS % 0.1 %; IG% 0.3 %; LYMPH % 6.6 %; MONO % 3.6 %; NEUT % 89.3 %
[2016-08-30] MEDS: POT PHOSPHATE MONOBASIC W/ SOD TAB PO SCH ×3 (06:52→14:45)
[2016-08-30] MEDS: POTASSIUM CHLORIDE 20 MEQ TABCR PO SCH ×3 (06:52→14:45)
--- NOTE | 2016-08-30 07:45 | Progress Note ---
Subjective Date of Service: Aug 30, 2016. Subjective Pt evaluation today including: conversation w/ patient, physical exam, chart review, lab review, review of studies, review of inpatient medication list Pain: Denies PO Intake: Jeri PO, no emesis 60 yo female POD#1 s/p acute right stent placement for stone and sepsis by Dr. Lora. Tachycardia improving, afebrile since yesterday. Cultures show E. Coli , sensitivities pending. Patient reports she feels much improved from previous, resting comfortably in ICU. Past notes reviewed. Problem List Medical Problems: (1) Sepsis Status: Acute Review of Systems Constitutional: + fever, + chills Eyes: No worsening of vision ENT: No hearing loss Respiratory: No sputum, No shortness of breath Cardiac: No chest pain Abdomen: No nausea, No vomiting Female : + see HPI Neurologic: No memory loss, No paralysis Psychiatric: No depression symptoms Heme: No swollen lymph nodes Endo: + excessive urination Skin: No new/changing skin lesions Objective Vital Signs Date Time Temp Pulse Resp B/P (MAP) Pulse Ox O2 Delivery O2 Flow Rate FiO2 08/30/16 06:00 88 108/69 (82) 96 Room Air 08/30/16 04:00 95 Room Air 08/30/16 04:00 36.8 93 95/64 (74) 92 Room Air 08/30/16 02:00 96 109/72 (84) 95 Room Air 08/30/16 00:01 36.8 99 122/87 (99) 94 Room Air 08/29/16 23:59 94 Room Air 08/29/16 22:46 108 112/69 (83) 90 08/29/16 22:45 109 91 08/29/16 22:31 110 108/64 (79) 93 08/29/16 22:30 108 93 08/29/16 22:16 109 101/66 (78) 94 08/29/16 22:15 107 94 08/29/16 22:06 113 103/70 (81) 93 08/29/16 22:00 115 08/29/16 21:45 114 108/66 (80) 94 08/29/16 21:31 113 113/65 (81) 96 08/29/16 21:30 116 95 08/29/16 21:16 113 109/68 (82) 93 08/29/16 21:15 112 93 7/4/17 21:00 114 118/64 (82) 94 08/29/16 20:49 113 115/70 (85) 94 08/29/16 20:45 118 08/29/16 20:30 117 117/63 (81) 96 08/29/16 20:25 113 112/70 (84) 94 08/29/16 20:15 118 08/29/16 20:00 37.1 111 20 109/54 (72) 98 Room Air 08/29/16 20:00 111 109/54 (72) 98 08/29/16 20:00 95 Room Air 08/29/16 19:45 119 98/66 (77) 08/29/16 19:31 116 117/71 (86) 97 08/29/16 19:15 108 125/91 (102) 96 08/29/16 19:00 113 124/68 (86) 98 08/29/16 18:45 109 130/76 (94) 97 08/29/16 18:30 111 109/65 (80) 96 08/29/16 18:16 114 105/81 (89) 96 08/29/16 18:15 111 97 08/29/16 18:01 113 120/69 (86) 99 08/29/16 18:00 114 97 08/29/16 17:46 111 110/64 (79) 98 08/29/16 17:45 113 98 08/29/16 17:31 113 103/68 (80) 97 08/29/16 17:30 114 97 08/29/16 17:15 110 20 111/81 (91) 96 Nasal Cannula 2.0 08/29/16 17:13 37.1 116 20 112/64 (80) 94 Nasal Cannula 2.0 08/29/16 17:13 37.1 116 20 112/64 94 Nasal Cannula 2.0 08/29/16 16:21 91/69 08/29/16 16:20 116 20 08/29/16 16:16 97/56 08/29/16 16:15 112 20 93 08/29/16 16:10 114 20 95/55 92 08/29/16 15:51 90/53 08/29/16 15:50 114 20 93 08/29/16 15:46 87/53 08/29/16 15:45 114 25 94 7/4/17 15:40 115 28 89/50 93 08/29/16 15:35 112 26 93 08/29/16 15:31 91/77 08/29/16 15:30 114 29 92 08/29/16 15:26 81/39 08/29/16 15:25 113 30 92 08/29/16 15:21 105/56 08/29/16 15:20 115 22 95 08/29/16 15:19 98/58 08/29/16 15:16 110 08/29/16 15:16 78/64 08/29/16 15:15 111 28 97 08/29/16 15:14 96/57 08/29/16 15:10 112 25 95 08/29/16 15:05 115 28 94 08/29/16 15:00 112 26 85/49 94 08/29/16 14:55 112 92 08/29/16 14:30 105 93/52 96 08/29/16 14:23 75/48 08/29/16 14:00 85/51 08/29/16 13:30 76/49 08/29/16 13:23 114 95 08/29/16 13:21 74/47 08/29/16 13:07 76/46 08/29/16 13:06 37.0 112 19 76/46 94 08/29/16 13:04 82/47 08/29/16 12:53 116 94 08/29/16 12:52 78/50 08/29/16 12:23 117 26 94 08/29/16 12:03 121 19 89/55 95 08/29/16 12:02 89/55 08/29/16 11:57 95 08/29/16 11:57 38.5 08/29/16 11:23 121 28 08/29/16 10:53 128 08/29/16 10:33 38.3 138 18 87/56 95 Room Air Physical Exam General Appearance: WD/WN, no apparent distress ENT: normal ENT inspection Neck: supple, + pertinent finding (R central line in place) Respiratory/Chest: no respiratory distress, no accessory muscle use Cardiovascular: no JVD Abdomen: non tender, soft Neurologic/Psychiatric: alert, oriented x 3 Skin: normal color Laboratory Results Last 24 Hours Test 08/29/16 11:00 08/29/16 11:35 7/4/17 11:39 08/29/16 12:00 White Blood Count 6.82 K/uL Red Blood Count 4.25 M/uL Hemoglobin 13.3 g/dL Hematocrit 37.4 % Mean Corpuscular Volume 88.0 fL Mean Corpuscular Hemoglobin 31.3 pg Mean Corpuscular Hemoglobin Concent 35.6 g/dl Platelet Count 73 K/uL RDW Standard Deviation 45.7 fL RDW Coefficient of Variation 14.8 % Neutrophils % (Manual) 88.8 % Lymphocytes % (Manual) 2.6 % Monocytes % (Manual) 1.7 % Eosinophils % (Manual) 0.9 % Metamyelocytes % 6.0 % Neutrophils # (Manual) 6.06 K/uL Total Absolute Neutrophils 6.06 K/uL Lymphocytes # (Manual) 0.18 K/uL Total Absolute Lymphocytes 0.18 K/uL Monocytes # (Manual) 0.12 K/uL Eosinophils # (Manual) 0.06 K/uL Metamyelocytes # 0.41 K/uL Toxic Vacuolation 3+ Dohle Bodies 1+ Platelet Estimate DECREASED Prothrombin Time 12.0 SECONDS Prothromb Time International Ratio 1.1 Activated Partial Thromboplast Time 30.5 SECONDS Partial Thromboplastin Ratio 1.2 Sodium Level 142 mmol/L Potassium Level 2.9 mmol/L Chloride Level 108 mmol/L Carbon Dioxide Level 23 mmol/L Anion Gap 11.0 mmol/L Blood Urea Nitrogen 61 mg/dl Creatinine 2.40 mg/dl Est Creatinine Clear Calc Drug Dose 19.7 ml/min Estimated GFR () 24.6 Estimated GFR (Non- 21.2 BUN/Creatinine Ratio 25.4 Random Glucose 89 mg/dl Calcium Level 8.3 mg/dl Magnesium Level 1.3 mg/dl Total Bilirubin 5.5 mg/dl Aspartate Amino Transf (AST/SGOT) 34 U/L Alanine Aminotransferase (ALT/SGPT) 15 U/L Alkaline Phosphatase 367 U/L Total Protein 5.8 gm/dl Albumin 2.6 gm/dl Globulin 3.2 gm/dl Albumin/Globulin Ratio 0.8 Thyroid Stimulating Hormone (TSH) 0.381 uIu/ml Hepatitis C Antibody Screen NEG Bedside Lactic Acid Venous 3.65 mmol/L Urine Color YONNY Urine Appearance CLOUDY Urine pH 5.5 Urine Specific [place] 1.015 Urine Protein 2+ Urine Glucose (UA) NEG Urine Ketones NEG Urine Occult Blood 3+ Urine Nitrite POS Urine Bilirubin 2+ Urine Urobilinogen NEG Urine Leukocyte Esterase LARGE Urine RBC >30 /hpf Urine WBC >30 /hpf Urine Epithelial Cells 5-10 /lpf Urine Bacteria 2+ Urine Granular Casts 1-5 /lpf Test 08/29/16 18:30 08/30/16 00:23 08/30/16 05:43 08/30/16 05:48 Sodium Level 144 mmol/L 145 mmol/L Potassium Level 3.1 mmol/L 3.4 mmol/L Chloride Level 114 mmol/L 116 mmol/L Carbon Dioxide Level 20 mmol/L 19 mmol/L Anion Gap 10.0 mmol/L 10.0 mmol/L Blood Urea Nitrogen 54 mg/dl 40 mg/dl Creatinine 2.20 mg/dl 1.40 mg/dl Est Creatinine Clear Calc Drug Dose 25.8 ml/min 37.1 ml/min Estimated GFR () 27.3 47.2 Estimated GFR (Non- 23.6 40.7 BUN/Creatinine Ratio 24.7 28.6 Random Glucose 125 mg/dl 89 mg/dl Lactic Acid Level 2.1 mmol/L 1.4 mmol/L 1.5 mmol/L Calcium Level 7.4 mg/dl 8.0 mg/dl Random Cortisol 117.68 mcg/dl White Blood Count 13.72 K/uL Red Blood Count 3.17 M/uL Hemoglobin 9.6 g/dL Hematocrit 27.4 % Mean Corpuscular Volume 86.4 fL Mean Corpuscular Hemoglobin 30.3 pg Mean Corpuscular Hemoglobin Concent 35.0 g/dl Platelet Count 42 K/uL Mean Platelet Volume 10.9 fL Neutrophils (%) (Auto) 89.3 % Lymphocytes (%) (Auto) 6.6 % Monocytes (%) (Auto) 3.6 % Eosinophils (%) (Auto) 0.1 % Basophils (%) (Auto) 0.1 % Neutrophils # (Auto) 12.27 K/uL Lymphocytes # (Auto) 0.90 K/uL Monocytes # (Auto) 0.49 K/uL Eosinophils # (Auto) 0.01 K/uL Basophils # (Auto) 0.01 K/uL RDW Standard Deviation 46.0 fL RDW Coefficient of Variation 14.6 % Immature Granulocyte % (Auto) 0.3 % Immature Granulocyte # (Auto) 0.04 K/uL Dohle Bodies 2+ Phosphorus Level 2.4 mg/dl Magnesium Level 2.4 mg/dl Total Bilirubin 3.9 mg/dl Aspartate Amino Transf (AST/SGOT) 35 U/L Alanine Aminotransferase (ALT/SGPT) 15 U/L Alkaline Phosphatase 108 U/L Total Protein 5.7 gm/dl Albumin 2.3 gm/dl Globulin 3.4 gm/dl Albumin/Globulin Ratio 0.7 Bedside Glucose 105 mg/dl Assessment and Plan A/P 60 yo female POD#1 s/p R ureteral stent placement for stone and sepsis. Await final UC&S. Would provide 10-14 days of appropriate antibiotic therapy. Will plan on outpatient f/u and definitive management of stone once her infection has cleared. Urology plan reviewed with patient who vocalizes understanding of the treatment plan. Discharge planning: home
--- NOTE | 2016-08-30 07:49 | Critical Care Progress Note ---
Critical Care Progress Note Date of Service Aug 30, 2016. ICU Day ICU Day Number: [address] Ford Subjective Feels greatly improved, no chest pain, fever, shortness of breath. Eating breakfast, wants to walk about halls and hopefully removed central line. Objective GEN: Sitting up in bed eating breakfast Eyes: PERRLA Neck: normal range of motion, no tenderness, trachea midline, no stridor Respiratory: breath sounds normal Cardiovasular: regular rate/rhythm, normal S1S2 Abdomen: non tender, no rebound, no masses, no guarding, no organomegaly, hypoactive bowel sounds Neuro: alert, oriented x 3 Current SOFA Score SOFA Score Response (Comments) Value Platelets (x10) < 50 3 Bilirubin (mg/dL) 2.0 - 5.9 2 Heber Coma Score 15 0 Level of Hypotension No Hypotension 0 Creatinine (mg/dL) 1.2 - 1.9 1 Total 6 Previous SOFA Scores SOFA 8 on admission Assessment & Plan Neuro: Tylenol when necessary for pain control, morphine for severe pain Resp: Monitor oxygen saturation CV: Severe sepsis * Off vasoactives > 24 hours * History of steroid use will give stress dose steroids 50 mg * Stopped today due to adequate cortisol response Fluids/Renal: Normosol maintenance fluid at 100 ML's per hour * Acute kidney injury: improving * Stopping maintenance, taking adequate PO ID: History of Escherichia coli pansensitive, cefepime 2 g IV hopefully de- escalate to Rocephin once sensitives result GI/Nutrition: Regular diet Heme: Heparin 5000 units 3 times a day Endocrine: Stress dose steroids * Accu-Cheks D/C central line today. Stable for downgrade to Med/Surgery Floor Consults & Procedures Consultants: Urology: Geno Procedures: Cystoscopy with ureteral stent 08/29/16 Data Medications: Current Inpatient Medications Medications (Trade) Dose Ordered Sig/Alan Route Start Time Stop Time Status Last Admin Dose Admin Acetaminophen (Tylenol Tab) 650 mg Q4H PRN PO 08/29/16 15:45 09/28/16 15:44 Norepinephrine Bitartrate 8 mg/ Dextrose 508 ml @ 0 mls/hr Q0M IV 08/29/16 18:00 09/28/16 17:59 Ondansetron HCl (Zofran Inj) 4 mg Q6H PRN IV 08/29/16 15:45 09/28/16 15:44 Albuterol/ Ipratropium (Duoneb) 3 ml Q6H PRN INH 08/29/16 15:45 09/28/16 15:44 Famotidine 10 mg/ Dextrose 101 ml @ 200 mls/hr Q12H IV 08/29/16 18:00 09/28/16 17:59 08/30/16 05:35 200 MLS/HR Levothyroxine Sodium (Synthroid Tab) 150 mcg DAILYBB PO 08/30/16 06:00 09/29/16 05:59 08/30/16 05:35 150 MCG Parenteral Electrolyte Solution 1,000 ml @ 100 mls/hr Q10H IV 08/29/16 17:30 09/28/16 17:29 08/30/16 03:50 100 MLS/HR Hydrocortisone Sodium Succinate 50 mg/Syringe 1 ml @ 4 mls/min Q8H IV 08/29/16 18:00 08/30/16 10:01 08/30/16 02:08 4 MLS/MIN Acetaminophen 100 ml @ 400 mls/hr Q8H PRN IV 08/29/16 17:15 09/28/16 17:14 Heparin Sodium (Porcine) (Heparin Sq 5000 Unit/0.5ml) 5,000 unit Q8 SQ 08/29/16 22:00 09/28/16 21:59 08/30/16 05:38 5,000 UNIT Cefepime HCl 1000 mg/Dextrose 111.3 ml @ 222.6 mls/ hr DAILY@0800 IV 08/30/16 08:00 09/09/16 07:59 Heparin Sodium (Porcine) (Heparin 10 Unit/ ml 5 ml Flush) 5 ml PRN PRN FLUSH 08/29/16 23:45 09/28/16 23:44 Potassium Chloride (Klor-Con Tab) 20 meq Q4H PO 08/30/16 06:45 08/30/16 14:46 08/30/16 06:52 20 MEQ Potassium/ Phosphorus/Sodium (Phospha 250 Neutral 155-852-130 Mg) 1 tab Q4H PO 08/30/16 06:45 08/30/16 14:46 08/30/16 06:52 1 TAB Vital Signs: Date Time Temp Pulse Resp B/P (MAP) Pulse Ox O2 Delivery O2 Flow Rate FiO2 08/30/16 06:00 88 108/69 (82) 96 Room Air 08/30/16 04:00 95 Room Air 08/30/16 04:00 36.8 93 95/64 (74) 92 Room Air 08/30/16 02:00 96 109/72 (84) 95 Room Air 08/30/16 00:01 36.8 99 122/87 (99) 94 Room Air 08/29/16 23:59 94 Room Air 08/29/16 22:46 108 112/69 (83) 90 08/29/16 22:45 109 91 08/29/16 22:31 110 108/64 (79) 93 08/29/16 22:30 108 93 08/29/16 22:16 109 101/66 (78) 94 08/29/16 22:15 107 94 08/29/16 22:06 113 103/70 (81) 93 08/29/16 22:00 115 08/29/16 21:45 114 108/66 (80) 94 08/29/16 21:31 113 113/65 (81) 96 08/29/16 21:30 116 95 08/29/16 21:16 113 109/68 (82) 93 08/29/16 21:15 112 93 08/29/16 21:00 114 118/64 (82) 94 08/29/16 20:49 113 115/70 (85) 94 08/29/16 20:45 118 08/29/16 20:30 117 117/63 (81) 96 08/29/16 20:25 113 112/70 (84) 94 08/29/16 20:15 118 08/29/16 20:00 37.1 111 20 109/54 (72) 98 Room Air 08/29/16 20:00 111 109/54 (72) 98 08/29/16 20:00 95 Room Air 08/29/16 19:45 119 98/66 (77) 08/29/16 19:31 116 117/71 (86) 97 08/29/16 19:15 108 125/91 (102) 96 08/29/16 19:00 113 124/68 (86) 98 08/29/16 18:45 109 130/76 (94) 97 08/29/16 18:30 111 109/65 (80) 96 08/29/17 18:16 114 105/81 (89) 96 7/4/17 18:15 111 97 7/4/17 18:01 113 120/69 (86) 99 7//17 18:00 114 97 7/4/17 17:46 111 110/64 (79) 98 7/4/17 17:45 113 98 7/4/17 17:31 113 103/68 (80) 97 7//17 17:30 114 97 7/4/17 17:15 110 20 111/81 (91) 96 Nasal Cannula 2.0 08/29/17 17:13 37.1 116 20 112/64 (80) 94 Nasal Cannula 2.0 08/29/17 17:13 37.1 116 20 112/64 94 Nasal Cannula 2.0 08/29/17 16:21 91/69 7/17 16:20 116 20 7/17 16:16 97/56 7/17 16:15 112 20 93 7/17 16:10 114 20 95/55 92 7/17 15:51 90/53 7//17 15:50 114 20 93 7//17 15:46 87/53 7//17 15:45 114 25 94 7//17 15:40 115 28 89/50 93 7//17 15:35 112 26 93 7/4/17 15:31 91/77 7//17 15:30 114 29 92 7/4/17 15:26 81/39 7//17 15:25 113 30 92 7//17 15:21 105/56 7/17 15:20 115 22 95 7/4/17 15:19 98/58 7//17 15:16 110 7//17 15:16 78/64 7/17 15:15 111 28 97 7//17 15:14 96/57 08/29/17 15:10 112 25 95 7//17 15:05 115 28 94 7/4/17 15:00 112 26 85/49 94 7/4/17 14:55 112 92 7//17 14:30 105 93/52 96 7/17 14:23 75/48 7/17 14:00 85/51 7/4/17 13:30 76/49 08/29/16 13:23 114 95 08/29/16 13:21 74/47 08/29/16 13:07 76/46 08/29/16 13:06 37.0 112 19 76/46 94 08/29/16 13:04 82/47 08/29/16 12:53 116 94 08/29/16 12:52 78/50 08/29/16 12:23 117 26 94 08/29/16 12:03 121 19 89/55 95 08/29/16 12:02 89/55 08/29/16 11:57 95 08/29/16 11:57 38.5 08/29/16 11:23 121 28 08/29/16 10:53 128 08/29/16 10:33 38.3 138 18 87/56 95 Room Air Laboratory Results: Last 24 Hours Test 08/29/16 11:00 08/29/16 11:35 08/29/16 11:39 08/29/16 12:00 White Blood Count 6.82 K/uL Red Blood Count 4.25 M/uL Hemoglobin 13.3 g/dL Hematocrit 37.4 % Mean Corpuscular Volume 88.0 fL Mean Corpuscular Hemoglobin 31.3 pg Mean Corpuscular Hemoglobin Concent 35.6 g/dl Platelet Count 73 K/uL RDW Standard Deviation 45.7 fL RDW Coefficient of Variation 14.8 % Neutrophils % (Manual) 88.8 % Lymphocytes % (Manual) 2.6 % Monocytes % (Manual) 1.7 % Eosinophils % (Manual) 0.9 % Metamyelocytes % 6.0 % Neutrophils # (Manual) 6.06 K/uL Total Absolute Neutrophils 6.06 K/uL Lymphocytes # (Manual) 0.18 K/uL Total Absolute Lymphocytes 0.18 K/uL Monocytes # (Manual) 0.12 K/uL Eosinophils # (Manual) 0.06 K/uL Metamyelocytes # 0.41 K/uL Toxic Vacuolation 3+ Dohle Bodies 1+ Platelet Estimate DECREASED Prothrombin Time 12.0 SECONDS Prothromb Time International Ratio 1.1 Activated Partial Thromboplast Time 30.5 SECONDS Partial Thromboplastin Ratio 1.2 Sodium Level 142 mmol/L Potassium Level 2.9 mmol/L Chloride Level 108 mmol/L Carbon Dioxide Level 23 mmol/L Anion Gap 11.0 mmol/L Blood Urea Nitrogen 61 mg/dl Creatinine 2.40 mg/dl Est Creatinine Clear Calc Drug Dose 19.7 ml/min Estimated GFR () 24.6 Estimated GFR (Non- 21.2 BUN/Creatinine Ratio 25.4 Random Glucose 89 mg/dl Calcium Level 8.3 mg/dl Magnesium Level 1.3 mg/dl Total Bilirubin 5.5 mg/dl Aspartate Amino Transf (AST/SGOT) 34 U/L Alanine Aminotransferase (ALT/SGPT) 15 U/L Alkaline Phosphatase 367 U/L Total Protein 5.8 gm/dl Albumin 2.6 gm/dl Globulin 3.2 gm/dl Albumin/Globulin Ratio 0.8 Thyroid Stimulating Hormone (TSH) 0.381 uIu/ml Hepatitis C Antibody Screen NEG Bedside Lactic Acid Venous 3.65 mmol/L Urine Color YONNY Urine Appearance CLOUDY Urine pH 5.5 Urine Specific [place] 1.015 Urine Protein 2+ Urine Glucose (UA) NEG Urine Ketones NEG Urine Occult Blood 3+ Urine Nitrite POS Urine Bilirubin 2+ Urine Urobilinogen NEG Urine Leukocyte Esterase LARGE Urine RBC >30 /hpf Urine WBC >30 /hpf Urine Epithelial Cells 5-10 /lpf Urine Bacteria 2+ Urine Granular Casts 1-5 /lpf Test 08/29/16 18:30 08/30/16 00:23 08/30/16 05:43 08/30/16 05:48 Sodium Level 144 mmol/L 145 mmol/L Potassium Level 3.1 mmol/L 3.4 mmol/L Chloride Level 114 mmol/L 116 mmol/L Carbon Dioxide Level 20 mmol/L 19 mmol/L Anion Gap 10.0 mmol/L 10.0 mmol/L Blood Urea Nitrogen 54 mg/dl 40 mg/dl Creatinine 2.20 mg/dl 1.40 mg/dl Est Creatinine Clear Calc Drug Dose 25.8 ml/min 37.1 ml/min Estimated GFR () 27.3 47.2 Estimated GFR (Non- 23.6 40.7 BUN/Creatinine Ratio 24.7 28.6 Random Glucose 125 mg/dl 89 mg/dl Lactic Acid Level 2.1 mmol/L 1.4 mmol/L 1.5 mmol/L Calcium Level 7.4 mg/dl 8.0 mg/dl Random Cortisol 117.68 mcg/dl White Blood Count 13.72 K/uL Red Blood Count 3.17 M/uL Hemoglobin 9.6 g/dL Hematocrit 27.4 % Mean Corpuscular Volume 86.4 fL Mean Corpuscular Hemoglobin 30.3 pg Mean Corpuscular Hemoglobin Concent 35.0 g/dl Platelet Count 42 K/uL Mean Platelet Volume 10.9 fL Neutrophils (%) (Auto) 89.3 % Lymphocytes (%) (Auto) 6.6 % Monocytes (%) (Auto) 3.6 % Eosinophils (%) (Auto) 0.1 % Basophils (%) (Auto) 0.1 % Neutrophils # (Auto) 12.27 K/uL Lymphocytes # (Auto) 0.90 K/uL Monocytes # (Auto) 0.49 K/uL Eosinophils # (Auto) 0.01 K/uL Basophils # (Auto) 0.01 K/uL RDW Standard Deviation 46.0 fL RDW Coefficient of Variation 14.6 % Immature Granulocyte % (Auto) 0.3 % Immature Granulocyte # (Auto) 0.04 K/uL Dohle Bodies 2+ Phosphorus Level 2.4 mg/dl Magnesium Level 2.4 mg/dl Total Bilirubin 3.9 mg/dl Aspartate Amino Transf (AST/SGOT) 35 U/L Alanine Aminotransferase (ALT/SGPT) 15 U/L Alkaline Phosphatase 108 U/L Total Protein 5.7 gm/dl Albumin 2.3 gm/dl Globulin 3.4 gm/dl Albumin/Globulin Ratio 0.7 Bedside Glucose 105 mg/dl
[2016-08-30] MEDS ORDERED: CEFEPIME IV 1,000 MG in DEXTROSE 5% 100ML IV SCH (08:00)
[2016-08-30] MEDS ORDERED: CEFEPIME CONSULT ACTIVE PRN ×2 (08:30)
[2016-08-30] MEDS ORDERED: CEFEPIME IV 2,000 MG in DEXTROSE 5% 100ML 100 ML IV SCH (08:30)
--- NOTE | 2016-08-30 11:34 | Progress Note ---
Internal Med Progress Note Date of Service: Aug 30, 2016. Provider Documentation: SUBJECTIVE: Patient is doing well. Denies any complaints OOB to chair No fever, chills, flank pain, nausea, vomiting, abdominal pain Tolerating PO well Off pressors OBJECTIVE: Vital Signs-as noted below Exam: General-AAOX3, no distress Neck-Supple, No JVD Lungs-AEBE, no wheezing, rhonchi Heart-S1, S2 normal, no murmurs Abdomen-Soft, non tender, non distended, BS present Extremities-No edema Lab data as noted below. ASSESSMENT & PLAN: SEVERE SEPSIS/SEPTIC SHOCK/ E COLI BACTEREMIA SECONDARY TO RIGHT PYELONEPHRITIS/ OBSTRUCTING NEPHROLITHIASIS -Required Levophed in ED. Febrile, leucocytosis + -Clinically improved significantly -S/P Cystoscopy with ureteral stent placement by urology on 08/28/16 -IV fluids -IV Cefepime (Day 1) --> IV Rocephin de-escalate -On stress dose of steroids 50 mg TID x 3 doses due to hx of chronic steroid use -Urine cx, Blood c x 2/2 bottles- E coli NIRANJAN- Improving secondary to above -IV fluids PRIMARY BILIARY CIRRHOSIS -Hold Ursodiol for now -Follows with [facility] HEMOLYTIC ANEMIA/THROMBOCYTOPENIA -Monitor counts -Follows with Dr.Nilesh Bragg -Discontinued prednisone 20mg daily 2-3 weeks ago per patient HYPOTHYROIDISM -Continue levothyroxine -Check TSH-0.381 GI Px: Famotidine DVT Px: SCDs. Re: Thrombocytopenia Code Status: Full Code DISPOSITION Okay to transfer to med-surg Vital Signs: Date Time Temp Pulse Resp B/P (MAP) Pulse Ox O2 Delivery O2 Flow Rate FiO2 08/30/16 10:00 83 20 104/68 (80) 97 Room Air 08/30/16 08:00 37.0 89 20 120/54 (76) 97 Room Air 08/30/16 08:00 97 Room Air 08/30/16 06:00 88 108/69 (82) 96 Room Air 08/30/16 04:00 95 Room Air 08/30/16 04:00 36.8 93 95/64 (74) 92 Room Air 08/30/16 02:00 96 109/72 (84) 95 Room Air 08/30/16 00:01 36.8 99 122/87 (99) 94 Room Air 08/29/16 23:59 94 Room Air 08/29/16 22:46 108 112/69 (83) 90 08/29/16 22:45 109 91 08/29/16 22:31 110 108/64 (79) 93 08/29/16 22:30 108 93 08/29/16 22:16 109 101/66 (78) 94 08/29/16 22:15 107 94 08/29/16 22:06 113 103/70 (81) 93 08/29/16 22:00 115 08/29/16 21:45 114 108/66 (80) 94 08/29/16 21:31 113 113/65 (81) 96 08/29/16 21:30 116 95 08/29/16 21:16 113 109/68 (82) 93 08/29/16 21:15 112 93 08/29/16 21:00 114 118/64 (82) 94 08/29/16 20:49 113 115/70 (85) 94 08/29/16 20:45 118 08/29/16 20:30 117 117/63 (81) 96 08/29/16 20:25 113 112/70 (84) 94 08/29/16 20:15 118 08/29/16 20:00 37.1 111 20 109/54 (72) 98 Room Air 08/29/16 20:00 111 109/54 (72) 98 08/29/16 20:00 95 Room Air 08/29/16 19:45 119 98/66 (77) 08/29/16 19:31 116 117/71 (86) 97 08/29/16 19:15 108 125/91 (102) 96 08/29/16 19:00 113 124/68 (86) 98 08/29/16 18:45 109 130/76 (94) 97 08/29/16 18:30 111 109/65 (80) 96 08/29/16 18:16 114 105/81 (89) 96 08/29/16 18:15 111 97 08/29/16 18:01 113 120/69 (86) 99 08/29/16 18:00 114 97 08/29/16 17:46 111 110/64 (79) 98 08/29/16 17:45 113 98 08/29/16 17:31 113 103/68 (80) 97 7/4/17 17:30 114 97 7/4/17 17:15 110 20 111/81 (91) 96 Nasal Cannula 2.0 7//17 17:13 37.1 116 20 112/64 (80) 94 Nasal Cannula 2.0 /4/17 17:13 37.1 116 20 112/64 94 Nasal Cannula 2.0 //17 16:21 91/69 7//17 16:20 116 20 7//17 16:16 97/56 7/17 16:15 112 20 93 7//17 16:10 114 20 95/55 92 7/4/17 15:51 90/53 7//17 15:50 114 20 93 7/17 15:46 87/53 7/17 15:45 114 25 94 //17 15:40 115 28 89/50 93 7//17 15:35 112 26 93 7/17 15:31 91/77 717 15:30 114 29 92 08/29/17 15:26 81/39 7/17 15:25 113 30 92 //17 15:21 105/56 7/17 15:20 115 22 95 08/29/17 15:19 98/58 7/17 15:16 110 /17 15:16 78/64 17 15:15 111 28 97 08/29/17 15:14 96/57 08/29/17 15:10 112 25 95 08/29/17 15:05 115 28 94 08/29/17 15:00 112 26 85/49 94 7/4/17 14:55 112 92 7/17 14:30 105 93/52 96 7//17 14:23 75/48 7/4/17 14:00 85/51 74/17 13:30 76/49 7/4/17 13:23 114 95 //17 13:21 74/47 7/4/17 13:07 76/46 7//17 13:06 37.0 112 19 76/46 94 7/17 13:04 82/47 7/4/17 12:53 116 94 08/29/17 12:52 78/50 7/4/17 12:23 117 26 94 08/29/16 12:03 121 19 89/55 95 08/29/16 12:02 89/55 08/29/16 11:57 95 08/29/16 11:57 38.5 Lab Results: Results Past 24 Hours Test 08/29/16 11:35 08/29/16 11:39 08/29/16 12:00 08/29/16 18:30 Range/Units Prothrombin Time 12.0 9.0-12.0 SECONDS Prothromb Time International Ratio 1.1 0.9-1.1 Activated Partial Thromboplast Time 30.5 21.0-31.0 SECONDS Partial Thromboplastin Ratio 1.2 Sodium Level 142 144 136-145 mmol/L Potassium Level 2.9 3.1 3.5-5.1 mmol/L Chloride Level 108 114 98-107 mmol/L Carbon Dioxide Level 23 20 21-32 mmol/L Anion Gap 11.0 10.0 3-11 mmol/L Blood Urea Nitrogen 61 54 7-18 mg/dl Creatinine 2.40 2.20 0.60-1.20 mg/dl Est Creatinine Clear Calc Drug Dose 19.7 25.8 ml/min Estimated GFR () 24.6 27.3 Estimated GFR (Non- 21.2 23.6 BUN/Creatinine Ratio 25.4 24.7 10-20 Random Glucose 89 125 70-99 mg/dl Calcium Level 8.3 7.4 8.5-10.1 mg/dl Magnesium Level 1.3 1.8-2.4 mg/dl Total Bilirubin 5.5 0.2-1 mg/dl Aspartate Amino Transf (AST/SGOT) 34 15-37 U/L Alanine Aminotransferase (ALT/SGPT) 15 12-78 U/L Alkaline Phosphatase 367 45-117 U/L Total Protein 5.8 6.4-8.2 gm/dl Albumin 2.6 3.4-5.0 gm/dl Globulin 3.2 2.5-4.0 gm/dl Albumin/Globulin Ratio 0.8 0.9-2 Thyroid Stimulating Hormone (TSH) 0.381 0.300-4.500 uIu/ml Hepatitis C Antibody Screen NEG NEG Bedside Lactic Acid Venous 3.65 0.90-1.70 mmol/L Urine Color YONNY Urine Appearance CLOUDY CLEAR Urine pH 5.5 4.5-7.5 Urine Specific [place] 1.015 1.000-1.030 Urine Protein 2+ NEG Urine Glucose (UA) NEG NEG Urine Ketones NEG NEG Urine Occult Blood 3+ NEG Urine Nitrite POS NEG Urine Bilirubin 2+ NEG Urine Urobilinogen NEG NEG Urine Leukocyte Esterase LARGE NEG Urine RBC >30 0-4 /hpf Urine WBC >30 0-5 /hpf Urine Epithelial Cells 5-10 0-5 /lpf Urine Bacteria 2+ NEG Urine Granular Casts 1-5 0 /lpf Lactic Acid Level 2.1 0.4-2.0 mmol/L Random Cortisol 117.68 mcg/dl Test 08/30/16 00:23 08/30/16 05:43 08/30/16 05:48 08/30/16 10:37 Range/Units Lactic Acid Level 1.4 1.5 0.4-2.0 mmol/L White Blood Count 13.72 4.8-10.8 K/uL Red Blood Count 3.17 4.2-5.4 M/uL Hemoglobin 9.6 12.0-16.0 g/dL Hematocrit 27.4 37-47 % Mean Corpuscular Volume 86.4 80-100 fL Mean Corpuscular Hemoglobin 30.3 25-34 pg Mean Corpuscular Hemoglobin Concent 35.0 32-36 g/dl Platelet Count 42 130-400 K/uL Mean Platelet Volume 10.9 7.4-10.4 fL Neutrophils (%) (Auto) 89.3 % Lymphocytes (%) (Auto) 6.6 % Monocytes (%) (Auto) 3.6 % Eosinophils (%) (Auto) 0.1 % Basophils (%) (Auto) 0.1 % Neutrophils # (Auto) 12.27 1.4-6.5 K/uL Lymphocytes # (Auto) 0.90 1.2-3.4 K/uL Monocytes # (Auto) 0.49 0.11-0.59 K/uL Eosinophils # (Auto) 0.01 0-0.5 K/uL Basophils # (Auto) 0.01 0-0.2 K/uL RDW Standard Deviation 46.0 36.4-46.3 fL RDW Coefficient of Variation 14.6 11.5-14.5 % Immature Granulocyte % (Auto) 0.3 % Immature Granulocyte # (Auto) 0.04 0.00-0.02 K/uL Dohle Bodies 2+ Sodium Level 145 136-145 mmol/L Potassium Level 3.4 3.5-5.1 mmol/L Chloride Level 116 98-107 mmol/L Carbon Dioxide Level 19 21-32 mmol/L Anion Gap 10.0 3-11 mmol/L Blood Urea Nitrogen 40 7-18 mg/dl Creatinine 1.40 0.60-1.20 mg/dl Est Creatinine Clear Calc Drug Dose 37.1 ml/min Estimated GFR () 47.2 Estimated GFR (Non- 40.7 BUN/Creatinine Ratio 28.6 10-20 Random Glucose 89 70-99 mg/dl Calcium Level 8.0 8.5-10.1 mg/dl Phosphorus Level 2.4 2.5-4.9 mg/dl Magnesium Level 2.4 1.8-2.4 mg/dl Total Bilirubin 3.9 0.2-1 mg/dl Aspartate Amino Transf (AST/SGOT) 35 15-37 U/L Alanine Aminotransferase (ALT/SGPT) 15 12-78 U/L Alkaline Phosphatase 108 45-117 U/L Total Protein 5.7 6.4-8.2 gm/dl Albumin 2.3 3.4-5.0 gm/dl Globulin 3.4 2.5-4.0 gm/dl Albumin/Globulin Ratio 0.7 0.9-2 Bedside Glucose 105 114 70-90 mg/dl Microbiology Results 08/30/16 Blood Culture, Received Pending 08/30/16 Blood Culture, Received Pending 08/29/16 Blood Culture - Preliminary, Resulted Gram Negative Bacilli 08/29/16 MRSA DNA Surveillance Screen - Final, Complete Specimen Negative for MRSA by DNA Probe 08/30/16 Rotavirus Antigen - Final, Complete Negative for Rotavirus Antigen 08/30/16 Shiga Toxin Test, Received Pending 08/30/16 Stool Culture, Received Pending 08/30/16 C.difficile Toxin B Gene (PCR) - Final, Complete No C. difficile toxin B gene detected 08/29/16 Urine Culture - Preliminary, Resulted Escherichia Coli
[2016-08-30] MEDS: CEFTRIAXONE SOD INJ 1 GM in DEXTROSE 5% ADD-VANTAGE 50ML 50 ML IV SCH (13:39)
[2016-08-31] MEDS: LEVOTHYROXINE 150 MCG TAB PO SCH (05:34)
[2016-08-31] MEDS: HEPARIN SOD 5000 UNIT/0.5 ML CARP SQ SCH ×2 (05:38→14:00)
[2016-08-31 07:00] VITALS: BP 122/77; PULSE 87; TEMP 36.8; O2SAT 95
[2016-08-31 07:10] LABS: HEMATOCRIT 28.7 % (37-47); MEAN CELL VOLUME 86.7 fL (80-100); MEAN CORPUSCULAR HEMOGLOBIN 30.5 pg (25-34); MEAN CORPUSCULAR HGB CONC 35.2 g/dl (32-36); MEAN PLATELET VOLUME 11.5 fL (7.4-10.4); PLATELET COUNT 68 K/uL (130-400); RED BLOOD COUNT 3.31 M/uL (4.2-5.4); WHITE BLOOD COUNT 10.17 K/uL (4.8-10.8)
[2016-08-31 07:25] LABS: BASO % 0.1 %; BASO ABS # 0.01 K/uL (0-0.2); COMPLETE YES; EOS % 1.2 %; IG% 0.4 %; LYMPH % 14.5 %; LYMPH ABS # 1.47 K/uL (1.2-3.4); MONO % 6.2 %; NEUT % 77.6 %
[2016-08-31 07:30] LABS: ALB/GLOB RATIO 0.6 (0.9-2); BUN/CREATININE RATIO 30.1 (10-20); CALCIUM 8.6 mg/dl (8.5-10.1); POTASSIUM 3.2 mmol/L (3.5-5.1)
--- NOTE | 2016-08-31 07:39 | Progress Note ---
Subjective Date of Service: Aug 31, 2016. Subjective Pt evaluation today including: conversation w/ patient, chart review, lab review Voiding: no voiding problems 60 yo female s/p right ureteral stent placement for stone in the setting of sepsis. Pt reports some urgency and frequency yesterday; improving today. Denies dysuria or hematuria, but does c/o vaginal irritation; improving today as well. Blood and urine cultures growing mayo sensitive e coli. Problem List Medical Problems: (1) Sepsis Status: Acute Review of Systems Constitutional: No fever, No chills Respiratory: No shortness of breath Cardiac: No chest pain Abdomen: No pain, No nausea, No vomiting Female : + urinary frequency, No dysuria, No hematuria Heme: No abnormal bleeding/bruising Objective Vital Signs Date Time Temp Pulse Resp B/P (MAP) Pulse Ox O2 Delivery O2 Flow Rate FiO2 08/30/16 23:30 Room Air 08/30/16 23:05 36.8 89 16 105/68 (80) 96 Room Air 08/30/16 22:12 36.9 90 20 111/65 (80) 96 Room Air 08/30/16 16:30 Room Air 08/30/16 16:15 36.8 81 18 98/68 (78) 96 Room Air 08/30/16 15:55 37.0 89 18 95 08/30/16 14:00 85 18 95/69 (78) 94 Room Air 08/30/16 12:00 89 18 99/69 (79) 95 Room Air 08/30/16 12:00 95 Room Air 08/30/16 10:00 83 20 104/68 (80) 97 Room Air 08/30/16 08:00 37.0 89 20 120/54 (76) 97 Room Air 08/30/16 08:00 97 Room Air Physical Exam General Appearance: no apparent distress Eyes: normal inspection ENT: hearing grossly normal Neck: no JVD Respiratory/Chest: no respiratory distress, no accessory muscle use Cardiovascular: no JVD Extremities: normal inspection Neurologic/Psychiatric: alert, normal mood/affect, oriented x 3 Skin: normal color Laboratory Results Last 24 Hours Test 08/30/16 10:37 08/30/16 17:44 08/30/16 20:42 08/31/16 06:22 Bedside Glucose 114 mg/dl 117 mg/dl 102 mg/dl White Blood Count 10.17 K/uL Red Blood Count 3.31 M/uL Hemoglobin 10.1 g/dL Hematocrit 28.7 % Mean Corpuscular Volume 86.7 fL Mean Corpuscular Hemoglobin 30.5 pg Mean Corpuscular Hemoglobin Concent 35.2 g/dl Platelet Count 68 K/uL Mean Platelet Volume 11.5 fL Neutrophils (%) (Auto) 77.6 % Lymphocytes (%) (Auto) 14.5 % Monocytes (%) (Auto) 6.2 % Eosinophils (%) (Auto) 1.2 % Basophils (%) (Auto) 0.1 % Neutrophils # (Auto) 7.90 K/uL Lymphocytes # (Auto) 1.47 K/uL Monocytes # (Auto) 0.63 K/uL Eosinophils # (Auto) 0.12 K/uL Basophils # (Auto) 0.01 K/uL RDW Standard Deviation 46.8 fL RDW Coefficient of Variation 14.6 % Immature Granulocyte % (Auto) 0.4 % Immature Granulocyte # (Auto) 0.04 K/uL Sodium Level 145 mmol/L Potassium Level 3.2 mmol/L Chloride Level 115 mmol/L Carbon Dioxide Level 22 mmol/L Anion Gap 8.0 mmol/L Blood Urea Nitrogen 30 mg/dl Creatinine 1.00 mg/dl Est Creatinine Clear Calc Drug Dose 51.9 ml/min Estimated GFR () 70.9 Estimated GFR (Non- 61.2 BUN/Creatinine Ratio 30.1 Random Glucose 77 mg/dl Calcium Level 8.6 mg/dl Total Bilirubin 1.3 mg/dl Aspartate Amino Transf (AST/SGOT) 25 U/L Alanine Aminotransferase (ALT/SGPT) 13 U/L Alkaline Phosphatase 160 U/L Total Protein 5.3 gm/dl Albumin 2.0 gm/dl Globulin 3.3 gm/dl Albumin/Globulin Ratio 0.6 Assessment and Plan POD #2 s/p right ureteral stent placement for ureteral stone with sepsis AFVSS. Recommend transitioning the pt to 14 days of oral abx such as Cipro or Bactrim DS prior to d/c home. Will plan for outpatient management of stone once infection has been adequately treated. Pt OK for d/c home from [facility] when OK with primary service. She [facility] as she believes this will be cheaper for her from an insurance perspective. Will call her to ensure she has established outpatient urology care in the next 1-2 weeks. No further management at this time. Thanks for allowing us to participate in this pt's care. Recall PRN issues. Discharge planning: home
[2016-08-31] MEDS ORDERED: POTASSIUM CHLORIDE 20 MEQ TABCR PO STA (12:23)
--- NOTE | 2016-08-31 12:34 | Progress Note ---
Internal Med Progress Note Date of Service: Aug 31, 2016. Provider Documentation: SUBJECTIVE: Patient is doing well. Denies any complaints No fever, chills, flank pain, nausea, vomiting, abdominal pain Tolerating PO well Ambulating well OBJECTIVE: Vital Signs-as noted below Exam: General-AAOX3, no distress Neck-Supple, No JVD Lungs-AEBE, no wheezing, rhonchi Heart-S1, S2 normal, no murmurs Abdomen-Soft, non tender, non distended, BS present Extremities-No edema Lab data as noted below. ASSESSMENT & PLAN: SEVERE SEPSIS/SEPTIC SHOCK/ E COLI BACTEREMIA SECONDARY TO RIGHT PYELONEPHRITIS/ OBSTRUCTING NEPHROLITHIASIS -Required Levophed in ED. Febrile, leucocytosis + on presentation -Clinically doing well with no symptoms today -S/P Cystoscopy with ureteral stent placement by urology on 08/28/16 -IV fluids- discontinued -IV Cefepime (Day 1) --> IV Rocephin --> Ciprofloxacin x 12 more days to complete course of 14 days of antibiotics -S/P stress dose of steroids 50 mg TID x 3 doses due to hx of chronic steroid use -Urine cx, Blood c x 2/2 bottles- E coli, Repeat Blood cultures- pending results NIRANJAN- Resolved secondary to above Presented with 2.40 and now resolved -IV fluids PRIMARY BILIARY CIRRHOSIS -Hold Ursodiol for now -Follows with outpatient AUTOIMMUNE HEMOLYTIC ANEMIA/THROMBOCYTOPENIA -Counts low but stable -Follows with Dr.Nilesh Bragg -Discontinued prednisone 20mg daily 2-3 weeks ago per patient HYPOTHYROIDISM -Continue levothyroxine -Check TSH-0.381 GI Px: Famotidine DVT Px: SCDs. Re: Thrombocytopenia Code Status: Full Code DISPOSITION Eager to be discharged Okay to discharge home today Cleared for discharge by Urology Vital Signs: Date Time Temp Pulse Resp B/P (MAP) Pulse Ox O2 Delivery O2 Flow Rate FiO2 08/31/16 07:00 36.8 87 16 122/77 (92) 95 Room Air 08/30/16 23:30 Room Air 08/30/16 23:05 36.8 89 16 105/68 (80) 96 Room Air 08/30/16 22:12 36.9 90 20 111/65 (80) 96 Room Air 08/30/16 16:30 Room Air 08/30/16 16:15 36.8 81 18 98/68 (78) 96 Room Air 08/30/16 15:55 37.0 89 18 95 08/30/16 14:00 85 18 95/69 (78) 94 Room Air Lab Results: Results Past 24 Hours Test 08/30/16 17:44 08/30/16 20:42 08/31/16 06:22 Range/Units Bedside Glucose 117 102 70-90 mg/dl White Blood Count 10.17 4.8-10.8 K/uL Red Blood Count 3.31 4.2-5.4 M/uL Hemoglobin 10.1 12.0-16.0 g/dL Hematocrit 28.7 37-47 % Mean Corpuscular Volume 86.7 80-100 fL Mean Corpuscular Hemoglobin 30.5 25-34 pg Mean Corpuscular Hemoglobin Concent 35.2 32-36 g/dl Platelet Count 68 130-400 K/uL Mean Platelet Volume 11.5 7.4-10.4 fL Neutrophils (%) (Auto) 77.6 % Lymphocytes (%) (Auto) 14.5 % Monocytes (%) (Auto) 6.2 % Eosinophils (%) (Auto) 1.2 % Basophils (%) (Auto) 0.1 % Neutrophils # (Auto) 7.90 1.4-6.5 K/uL Lymphocytes # (Auto) 1.47 1.2-3.4 K/uL Monocytes # (Auto) 0.63 0.11-0.59 K/uL Eosinophils # (Auto) 0.12 0-0.5 K/uL Basophils # (Auto) 0.01 0-0.2 K/uL RDW Standard Deviation 46.8 36.4-46.3 fL RDW Coefficient of Variation 14.6 11.5-14.5 % Immature Granulocyte % (Auto) 0.4 % Immature Granulocyte # (Auto) 0.04 0.00-0.02 K/uL Sodium Level 145 136-145 mmol/L Potassium Level 3.2 3.5-5.1 mmol/L Chloride Level 115 98-107 mmol/L Carbon Dioxide Level 22 21-32 mmol/L Anion Gap 8.0 3-11 mmol/L Blood Urea Nitrogen 30 7-18 mg/dl Creatinine 1.00 0.60-1.20 mg/dl Est Creatinine Clear Calc Drug Dose 51.9 ml/min Estimated GFR () 70.9 Estimated GFR (Non- 61.2 BUN/Creatinine Ratio 30.1 10-20 Random Glucose 77 70-99 mg/dl Calcium Level 8.6 8.5-10.1 mg/dl Total Bilirubin 1.3 0.2-1 mg/dl Aspartate Amino Transf (AST/SGOT) 25 15-37 U/L Alanine Aminotransferase (ALT/SGPT) 13 12-78 U/L Alkaline Phosphatase 160 45-117 U/L Total Protein 5.3 6.4-8.2 gm/dl Albumin 2.0 3.4-5.0 gm/dl Globulin 3.3 2.5-4.0 gm/dl Albumin/Globulin Ratio 0.6 0.9-2 Microbiology Results 08/31/16 Blood Culture, Gabriela Batch Pending 08/31/16 Blood Culture, Gabriela Batch Pending
[2016-08-31] MEDS ORDERED: CPR500 PO (12:38)
--- NOTE | 2016-08-31 12:41 | Discharge Instructions ---
Discharge Instructions Date of Service Aug 31, 2016. Admission Reason for Admission: Fever,Nausea,Vomiting Discharge Discharge Diagnosis / Problem: 1. Severe sepsis/Bacteremia (E coli ) secondary to Right pyelnephritis/Ston Discharge Goals Goal(s): Diagnostic testing, Therapeutic intervention Activity Recommendations Activity Limitations: resume your previous activity . Instructions / Follow-Up Instructions / Follow-Up NEW MEDICATIONS: 1. Ciprofloxacin 500 mg PO BID x 12 more days to complete course of 14 days of antibiotics FOLLOW UP 1. Follow up with Dr Mendenhall 09/04/16 at 12:55 PM 2. Follow up with Urology in 1-2 weeks. Current Hospital Diet Patient's current hospital diet: Regular Diet Discharge Diet Recommended Diet: Regular Diet Procedures Procedures Performed: Cystoscopy, Placement of Right Ureteral Stent ([id number]) Pending Studies Studies pending at discharge: no Medical Emergencies . Who to Call and When: Medical Emergencies: If at any time you feel your situation is an emergency, please call 911 immediately. . Non-Emergent Contact Non-Emergency issues call your: Primary Care Provider, Urologist Call Non-Emergent contact if: temperature is above 101.5 . . "Provider Documentation" section prepared by Isabella Bragg. . VTE Core Measure Inpt VTE Proph given/why not?: Alem Garcia, SCD's
--- NOTE | 2016-08-31 12:44 | Discharge Summary ---
Discharge Summary Date of Service Aug 31, 2016. Discharge Summary Admission Date: Aug 29, 2016 at 15:54 Discharge Date: Aug 31, 2016 Discharge Disposition: Home Principal Diagnosis: 1. Severe sepsis / Septic shock secondary to Right sided complicated pyelonephritis secondary to stone 2. E coli bacteremia secondary to above 3. Right sided Pyelonephritis (Complicated) , E coli 4. NIRANJAN 5. Hypokalemia Secondary Diagnoses/Problems: 1. Hx of Primary biliary Cirrhosis 2. Autoimmune hemolytic anemia 3. Hypothyroidism Procedures: Cystoscopy with ureteral stent placement on 08/29/16 ICU monitoring IV antibiotics IV fluids Cultures CT scan abd/pelvis KUB CXR Pending Studies/Follow-Up: Instructions / Follow-Up Instructions / Follow-Up NEW MEDICATIONS: 1. Ciprofloxacin 500 mg PO BID x 12 more days to complete course of 14 days of antibiotics FOLLOW UP 1. Follow up with Dr Mendenhall 09/04/16 at 12:55 PM 2. Follow up with Urology in 1-2 weeks. Medication Reconciliation New Medications: Ciprofloxacin (Ciprofloxacin HCl) 500 Mg Tab 500 MG PO BID for 12 Days, #24 TAB Continued Medications: Calcium-Magnesium W/ Vitamin D (Citracal Calcium+D Slow R) 1 Tab Tab 1 TAB PO DAILY Cholecalciferol (Vitamin D3) 1,000 Unit Tab 1 TAB PO DAILY for 90 Days, #90 TAB 3 Refills Levothyroxine Sodium (Synthroid) 150 Mcg Tab 1 TAB PO DAILY for 30 Days, #30 TAB 5 Refills Ursodiol (Ursodiol) 300 Mg Cap 600 MG PO BID Admission Information HPI (per Admitting provider): Patient is a 60 Yr female with PMH of Primary Biliary cirrhosis, Hypothyroidism , autoimmune hemolytic anemia, Nephrolithiasis and h/o UTI presents with history of nausea, vomiting, abdominal pain, diarrhea, fever and dizziness since last Sunday. She reports abdominal pain is generalized in location, dull, non radiating and no aggravating/relieving factors. Reports diarrhea which is loose, watery, non bloody since 3 days. Has poor appetite secondary to nausea, vomiting. She states fever with chills started this morning and was 102 F when checked at home. Denies any burning micturition, hematuria, flank pain, chest pain, cough, wheezing, headache, palpitations, pedal edema, orthopnea. Reports having SOB on exertion and dizziness with ambulation. She was found to be hypotensive despite aggressive fluid transfusions and so was started on Levophed while in ED. KUB was suggestive of right proximal ureteral obstructing stone, Urology was consulted and patient is being planned for emergent cystoscopy and possible stent placement. Physical Exam (per Admitting): General Appearance: WD/WN, no apparent distress Head: normocephalic, atraumatic Eyes: normal inspection, PERRL, EOMI ENT: normal ENT inspection, hearing grossly normal Neck: supple, trachea midline, + pertinent finding (R IJ line) Respiratory/Chest: chest non-tender, normal breath sounds, no respiratory distress, + pertinent finding (B/L Basal creps) Cardiovascular: regular rate, rhythm, no edema, no murmur, + tachycardia Abdomen/GI: normal bowel sounds, non tender, soft, + pertinent finding (B/L flank tender) Back: normal inspection Extremities/Musculoskelatal: normal inspection, no pedal edema Neurologic/Psych: distiller II-XII nml as tested, no motor/sensory deficits, alert , normal mood/affect, oriented x 3 Skin: normal color, warm/dry Hospital Course SEVERE SEPSIS/SEPTIC SHOCK/ E COLI BACTEREMIA SECONDARY TO RIGHT PYELONEPHRITIS/ OBSTRUCTING NEPHROLITHIASIS -Required Levophed in ED. Febrile, leucocytosis + on presentation -Clinically doing well with no symptoms today -S/P Cystoscopy with ureteral stent placement by urology on 08/28/16 -IV fluids- discontinued -IV Cefepime (Day 1) --> IV Rocephin --> Ciprofloxacin x 12 more days to complete course of 14 days of antibiotics -S/P stress dose of steroids 50 mg TID x 3 doses due to hx of chronic steroid use -Urine cx, Blood c x 2/2 bottles- E coli, Repeat Blood cultures- pending results NIRANJAN - Resolved secondary to above Presented with 2.40 and now resolved -IV fluids-Ok to discontinue HYPOKALEMIA -Replaced PRIMARY BILIARY CIRRHOSIS -Hold Ursodiol for now -Follows with outpatient AUTOIMMUNE HEMOLYTIC ANEMIA/THROMBOCYTOPENIA -Counts low but stable -Follows with Dr.Nilesh Bragg -Discontinued prednisone 20mg daily 2-3 weeks ago per patient HYPOTHYROIDISM -Continue levothyroxine -Check TSH-0.381 GI Px: Famotidine DVT Px: SCDs. Re: Thrombocytopenia Code Status: Full Code DISPOSITION Eager to be discharged Okay to discharge home today Cleared for discharge by Urology Total time spent on discharge = 40 minutes This includes examination of the patient, discharge planning, medication reconciliation, and communication with other providers. Discharge Instructions Discharge Goals Goal(s): Diagnostic testing, Therapeutic intervention Activity Recommendations Activity Limitations: resume your previous activity . Instructions / Follow-Up Instructions / Follow-Up NEW MEDICATIONS: 1. Ciprofloxacin 500 mg PO BID x 12 more days to complete course of 14 days of antibiotics FOLLOW UP 1. Follow up with Dr Mendenhall 09/04/16 at 12:55 PM 2. Follow up with Urology in 1-2 weeks. Current Hospital Diet Patient's current hospital diet: Regular Diet Discharge Diet Recommended Diet: Regular Diet Procedures Procedures Performed: Cystoscopy, Placement of Right Ureteral Stent ([id number]) Pending Studies Studies pending at discharge: no Medical Emergencies . Who to Call and When: Medical Emergencies: If at any time you feel your situation is an emergency, please call 911 immediately. . Non-Emergent Contact Non-Emergency issues call your: Primary Care Provider, Urologist Call Non-Emergent contact if: temperature is above 101.5 . . "Provider Documentation" section prepared by Isabella Bragg. . VTE Core Measure Inpt VTE Proph given/why not?: Alem Garcia, SCD's
[2016-08-31] MEDS ORDERED: POTASSIUM CHLORIDE 20 MEQ/15 ML UDC PO ONE (12:45)
[2016-08-31] MEDS: CEFTRIAXONE SOD INJ 1 GM in DEXTROSE 5% ADD-VANTAGE 50ML 50 ML IV SCH (13:00)
[2016-08-31 13:04] VITALS: BP 122/77; PULSE 87; TEMP 36.8; O2SAT 95
--- NOTE | 2016-08-31 15:49 | EMERGENCY ROOM VISIT NOTE ---
ED Visit Note First contact with patient: 11:02 Chief Complaint: History of Present Illness: Ms. Beltran is a 60-year-old white female who is brought into the ED via wheelchair accompanied by her complaining of fevers, vomiting, diarrhea, headache and body aches. Historically patient reports she has a history of hemolytic anemia and has finished a prednisone taper on August 12. Patient reports her symptoms started on Sunday, 3 days ago. She reports she was just not feeling her normal self. Then on Sunday she reports she started experiencing multiple episodes of dark brown diarrheal stools, every time she ate she vomited but had no nausea. Then yesterday she developed a headache that she describes as a band sensation around her head. This pain is rated 4/ 10. Her pain is nonradiating. She has not identified any aggravating or alleviating factors related to the pain. At the same time she also started developing fevers and body aches primarily in the back and the joints. She also reports that she is having crampy abdominal pain. This is located diffusely over the abdomen. This is most prominent after she attempts to eat or drink and then after vomiting she has mild resolution of her discomfort. She has not been able to take any medications for her symptoms prior to arrival at the hospital. Associated with her symptoms she reports she's not been able to drink or eat because of her vomiting and she is feeling dehydrated with a dry mouth and lightheadedness with positional changes. Additionally she reports she is having some shortness of breath during ambulation/activity. She denies skin eruptions, skin color changes, visual changes, hearing changes, difficult speaking, difficulty swallowing, chest pains, cough, wheezing, palpitations, previous clots, claudication, cramping, hematemesis, urinary symptoms, hematuria, vaginal bleeding, vaginal discharge. Review of Systems: As noted above in history of present illness. All body systems were reviewed and found to be negative as noted above. Past Medical History: As noted above, hypothyroidism, kidney stones, status post section. Current Medications: Ursodiol, vitamin D3, calcium with magnesium and vitamin D , Synthroid. Allergies to Medications: Flu vaccine virus, latex. Social History: Patient is currently employed; she feels safe in her home environment; she denies tobacco use and admits to social alcohol use. Physical Examination: Vital Signs: Date Time Temp Pulse Resp B/P (MAP) Pulse Ox O2 Delivery O2 Flow Rate FiO2 08/29/16 15:51 90/53 08/29/16 15:50 114 20 93 08/29/16 15:46 87/53 08/29/16 15:45 114 25 94 08/29/16 15:40 115 28 89/50 93 08/29/16 15:35 112 26 93 08/29/16 15:31 91/77 08/29/16 15:30 114 29 92 08/29/16 15:26 81/39 08/29/16 15:25 113 30 92 08/29/16 15:21 105/56 08/29/16 15:20 115 22 95 08/29/16 15:19 98/58 08/29/16 15:16 110 08/29/16 15:16 78/64 08/29/16 15:15 111 28 97 08/29/16 15:14 96/57 08/29/16 15:10 112 25 95 08/29/16 15:05 115 28 94 08/29/16 15:00 112 26 85/49 94 08/29/16 14:55 112 92 08/29/16 14:30 105 93/52 96 08/29/16 14:23 75/48 08/29/16 14:00 85/51 08/29/16 13:30 76/49 08/29/16 13:23 114 95 08/29/16 13:21 74/47 08/29/16 13:07 76/46 08/29/16 13:06 37.0 112 19 76/46 94 08/29/16 13:04 82/47 08/29/16 12:53 116 94 08/29/16 12:52 78/50 08/29/16 12:23 117 26 94 08/29/16 12:03 121 19 89/55 95 08/29/16 12:02 89/55 08/29/16 11:57 95 08/29/16 11:57 38.5 08/29/16 11:23 121 28 08/29/16 10:53 128 08/29/16 10:33 38.3 138 18 87/56 95 Room Air GENERAL: 60-year-old female in mild distress due to pain, nontoxic-appearing, febrile, hypotensive and tachycardic. NEUROLOGICAL: Awake, alert and oriented to person, place and time. Answering questions appropriately and following commands. Good hand eye coordination. No focal motor sensory deficits. Cranial nerves II through XII grossly intact. SKIN: Hot, dry and pink. No soft tissue eruptions or trauma noted. HEENT: Atraumatic and normocephalic. PERRLA. EOMI. Sclera white and conjunctiva pink. No drainage from naris. Lips dry. Oral cavity dry and pink. Pharynx is nonerythematous or edematous. Airway patent. Speech normal. No lymphadenopathy. Trachea midline. No jugular venous distention. BACK: No tenderness over the bony spine. Full range of motion of the cervical spine. No CVA tenderness. THORAX: Lungs sounds are clear to auscultation and equal bilaterally with symmetrical chest wall. No wheezing, rales or rhonchi. No crepitus, tenderness , subcutaneous air or deformities noted. HEART: Tachycardic rate and rhythm. No gallops, rubs or murmurs are appreciated. ABDOMEN: Flat, soft and nontender. Decreased bowel sounds in all quadrants. No guarding, rigidity or organomegaly. EXTREMITIES: Moves all extremities well on command and with purpose. All distal neurovascular statuses are intact and equal bilaterally. No calf tenderness or cords. ED Course: Patient is assessed as noted above. Patient's medication list was reviewed. Laboratory Testing: Test 08/29/16 11:00 08/29/16 11:35 08/29/16 11:39 08/29/16 12:00 Range/Units White Blood Count 6.82 4.8-10.8 K/uL Red Blood Count 4.25 4.2-5.4 M/uL Hemoglobin 13.3 12.0-16.0 g/dL Hematocrit 37.4 37-47 % Mean Corpuscular Volume 88.0 80-100 fL Mean Corpuscular Hemoglobin 31.3 25-34 pg Mean Corpuscular Hemoglobin Concent 35.6 32-36 g/dl Platelet Count 73 130-400 K/uL RDW Standard Deviation 45.7 36.4-46.3 fL RDW Coefficient of Variation 14.8 11.5-14.5 % Neutrophils % (Manual) 88.8 % Lymphocytes % (Manual) 2.6 % Monocytes % (Manual) 1.7 % Eosinophils % (Manual) 0.9 % Metamyelocytes % 6.0 % Neutrophils # (Manual) 6.06 1.4-6.5 K/uL Total Absolute Neutrophils 6.06 1.4-6.5 K/uL Lymphocytes # (Manual) 0.18 1.2-3.4 K/uL Total Absolute Lymphocytes 0.18 1.2-3.4 K/uL Monocytes # (Manual) 0.12 0.11-0.59 K/uL Eosinophils # (Manual) 0.06 0-0.5 K/uL Metamyelocytes # 0.41 0-0 K/uL Toxic Vacuolation 3+ Dohle Bodies 1+ Platelet Estimate DECREASED Prothrombin Time 12.0 9.0-12.0 SECONDS Prothromb Time International Ratio 1.1 0.9-1.1 Activated Partial Thromboplast Time 30.5 21.0-31.0 SECONDS Partial Thromboplastin Ratio 1.2 Sodium Level 142 136-145 mmol/L Potassium Level 2.9 3.5-5.1 mmol/L Chloride Level 108 98-107 mmol/L Carbon Dioxide Level 23 21-32 mmol/L Anion Gap 11.0 3-11 mmol/L Blood Urea Nitrogen 61 7-18 mg/dl Creatinine 2.40 0.60-1.20 mg/dl Est Creatinine Clear Calc Drug Dose 19.7 ml/min Estimated GFR () 24.6 Estimated GFR (Non- 21.2 BUN/Creatinine Ratio 25.4 10-20 Random Glucose 89 70-99 mg/dl Calcium Level 8.3 8.5-10.1 mg/dl Magnesium Level 1.3 1.8-2.4 mg/dl Total Bilirubin 5.5 0.2-1 mg/dl Aspartate Amino Transf (AST/SGOT) 34 15-37 U/L Alanine Aminotransferase (ALT/SGPT) 15 12-78 U/L Alkaline Phosphatase 367 45-117 U/L Total Protein 5.8 6.4-8.2 gm/dl Albumin 2.6 3.4-5.0 gm/dl Globulin 3.2 2.5-4.0 gm/dl Albumin/Globulin Ratio 0.8 0.9-2 Thyroid Stimulating Hormone (TSH) 0.381 0.300-4.500 uIu/ml Hepatitis C Antibody Screen NEG NEG Bedside Lactic Acid Venous 3.65 0.90-1.70 mmol/L Urine Color YONNY Urine Appearance CLOUDY CLEAR Urine pH 5.5 4.5-7.5 Urine Specific [place] 1.015 1.000-1.030 Urine Protein 2+ NEG Urine Glucose (UA) NEG NEG Urine Ketones NEG NEG Urine Occult Blood 3+ NEG Urine Nitrite POS NEG Urine Bilirubin 2+ NEG Urine Urobilinogen NEG NEG Urine Leukocyte Esterase LARGE NEG Urine RBC >30 0-4 /hpf Urine WBC >30 0-5 /hpf Urine Epithelial Cells 5-10 0-5 /lpf Urine Bacteria 2+ NEG Urine Granular Casts 1-5 0 /lpf Blood Culture: Pending. Urine Culture: Pending. Chest X-Rays: Were read by myself and the radiologist showing no acute infiltrates, effusions or pneumothorax. Normal heart silhouette and bony anatomy. KUB: Was read by myself and the radiologist and shows mildly distended loops of bowel but no signs of obstruction. Radiologist also notes a 9 mm calcification over the right proximal ureter. EKG: Was read by myself and reviewed with Dr. Napoles shows sinus tachycardia with a ventricular rate of 119 bpm. Normal intervals and complexes. No acute ST changes indicating ischemia, injury or infarction. This was compared to previous and no acute changes were noted except for rate. Patient was aggressively hydrated with 5 L normal saline, she was given 1 g of acetaminophen IV for her fever and 1 g of ceftriaxone for her urinary tract infection. Patient was reassessed multiple times during her stay in the emergency department. Patient's case was reviewed With Dr. Napoles; she apparently assessed the patient. Dr. Napoles did help direct his care on this patient and started a central line and norepinephrine for her pressure. She additionally made consultation with the drive in teller, urology and hospitalist. Please see her notes and orders for further information. Patient and were educated about today's findings. Clinical Impression: Septic shock. Urinary tract infection. Acute kidney injury. Hypokalemia, hypomagnesemia. Decision-Making: Initially my differential diagnosis I considered gastroenteritis, perforated viscus, bowel obstruction, sepsis, pneumonia, ischemic bowel and other causes. Disposition and Plan: Patient be brought in the hospital by the hospitalist for medical admission; please see their notes and orders for final disposition and plan.
== END 2016-08-31 13:45 | disposition home or self-care (01) | DRG 871 ==
LOC: C.EDB 10:24 → C.MSICU 15:54 → ENRESERV 16:10 → C.MSN 08-30 16:42
PROVIDERS: ADMIT Internal Medicine; ATTEND Internal Medicine
PROC: 02HV33Z Insertion of Infusion Device into Superior Vena Cava, Percutaneous Approach (ICD-10-PCS; principal; 2016-08-29 15:30)
PROC: 0T768DZ Dilation of Right Ureter with Intraluminal Device, Via Natural or Artificial Opening Endoscopic (ICD-10-PCS; principal; 2016-08-29 15:30)
DX: A41.51 Sepsis due to Escherichia coli [E. coli] (principal); R65.21 Severe sepsis with septic shock; N20.1 Calculus of ureter; N17.9 Acute kidney failure, unspecified; D59.1 Other autoimmune hemolytic anemias; E87.6 Hypokalemia; E83.42 Hypomagnesemia; E86.0 Dehydration; D69.6 Thrombocytopenia, unspecified; K74.3 Primary biliary cirrhosis; E03.9 Hypothyroidism, unspecified; Z87.442 Personal history of urinary calculi; Z87.891 Personal history of nicotine dependence; Z79.899 Other long term (current) drug therapy

== ENCOUNTER → 2016-09-13 | Outpatient (CLI) | payer OTHER ==
[~2016-09-13] MED LIST changes: +CPR500 PO; -LEVO-459 PO
== END | disposition home or self-care (01) ==
LOC: C.LABSPEC 16:52
PROVIDERS: ATTEND Nurse Practitioner Adult Health
DX: N20.1 Calculus of ureter (principal)

== ENCOUNTER → 2016-09-15 | Day surgery (SDC) | payer OTHER ==
[2016-09-13 15:18] VITALS: Ht 157.5 cm; Wt 60.5 kg
[2016-09-14 15:35] LABS: BASO % 0.5 %; BASO ABS # 0.02 K/uL (0-0.2); COMPLETE YES; EOS % 2.8 %; HEMATOCRIT 28.5 % (37-47); IG% 0.2 %; LYMPH % 24.9 %; LYMPH ABS # 1.07 K/uL (1.2-3.4); MEAN CELL VOLUME 89.6 fL (80-100); MEAN CORPUSCULAR HEMOGLOBIN 31.1 pg (25-34); MEAN CORPUSCULAR HGB CONC 34.7 g/dl (32-36); MEAN PLATELET VOLUME 9.4 fL (7.4-10.4); MONO % 10.7 %; NEUT % 60.9 %; PLATELET COUNT 438 K/uL (130-400); RED BLOOD COUNT 3.18 M/uL (4.2-5.4); WHITE BLOOD COUNT 4.29 K/uL (4.8-10.8)
[~2016-09-15] VITALS: Ht 157.5 cm; Wt 60.5 kg
[~2016-09-15] MED LIST changes: +ACETAMINOPHEN 325 MG TAB PO PRN; +ATROPINE SULFATE 0.1 MG/ML 5ML SYR IV PRN; -CALC1TAB56 PO; -CHOL1000 PO; +CIPROFLOXACIN 400MG / D5W IV SCH; +DEXAMETHASONE SOD INJ 4 MG/ML VIAL IV PRN; +DEXAMETHASONE SOD INJ 4 MG/ML VIAL ONE; +EpHEDrine SULFATE INJ 50 MG/ML AMP IV PRN; +FENTANYL CITRATE INJ 50 MCG/1 ML 2 ML VIAL IV PRN; +FENTANYL CITRATE INJ 50 MCG/1 ML 2 ML VIAL ONE; +KETOROLAC TROMETHAMINE 30 MG/ML VIAL IV. PRN; +LABETALOL HCL IV 5 MG/ML 20ML IV PRN; +LACTATED RINGER'S 1000ML 1,000 ML IV SCH; +LIDOCAINE HCL 2% 2 ML VIAL (20MG/ML) ONE; +METOCLOPRAMIDE HCL INJ 5 MG/ML 2 ML VIAL IV PRN; +MIDAZOLAM HCL 1 MG/ML 2ML VIAL ONE; +MoRPHine SULFATE 10 MG/ML CARP/VIAL IV PRN; +ONDANSETRON INJ 2 MG/ML 2 ML VIAL IV PRN; +ONDANSETRON INJ 2 MG/ML 2 ML VIAL ONE; +OXYCODONE/ACETAMINOPHEN 5-325 TAB PO PRN; +PHENYLEPHRINE 100MCG/ML 5ML SYR IV PRN; +PROPOFOL IV EMULSION 10 MG/ML 20 ML VIAL IV ONE; +SODIUM CHLORIDE 0.9% 1000ML 1,000 ML IV SCH
--- NOTE | 2016-09-15 07:34 | History & Physical Bridge Note ---
H&P Re-Evaluation Bridge Note: I have examined the patient, reviewed the History & Physical and in the interval since the performance of the History & Physical I have noted the following changes of clinical significance: No changes noted
--- NOTE | 2016-09-15 08:14 | [facility] Operative Report ---
Operative Report Operative Date Sep 15, 2016. Pre-Operative Diagnosis Right renal stone Post-Operative Diagnosis Same as pre-op Procedure(s) Performed Right Extracorporeal Shock Wave Lithotripsy - Renal Surgeon Dr. Lora Horse Breeder Surgeon(s) None Estimated Blood Loss Zero Findings Right renal stone; previously placed right renal stent Specimens None Drains none Anesthesia Gen. Complication(s) None Disposition Recovery Room / PACU (stable) Indications Right renal stone Description of Procedure Latasha Beltran was identified in the preoperative holding area, appropriate informed consent was reviewed and completed and the patient was transported to the operating suite. Upon arrival appropriate preoperative antibiotics were administered and general anesthesia induced. The patient was placed in supine position and the stone was localized under fluoroscopy. A total of 2500 shocks were delivered to the stone. There appeared to be good fragmentation of the stone. Details of this procedure can be found on the [facility] information sheet. At the conclusion of the case the patient was extubated and taken to the PACU in stable condition. There were no complications. I attest to the content of the Intraoperative Record and any orders documented therein. Any exceptions are noted below.
--- NOTE | 2016-09-15 08:15 | Discharge Instructions-SurgCtr ---
Discharge Instructions Date of Service Sep 15, 2016. Visit Reason for Visit: Stones Discharge Discharge Diagnosis / Problem: stone Discharge Goals Goal(s): Decrease discomfort, Improve function, Increase independence, Improve disease control, Prevent Disease Progression Activity Recommendations Activity Limitations: resume your previous activity Lifting Limitations: none Exercise/Sports Limitations: none, as tolerated May Resume Sexual Activity: when tolerated Shower/Bathe: no limitations Driving or Machine Use: resume 1 day after discharge Anesthesia . Post Anesthesia Instructions: If you have had General Anesthesia or IV Sedation: * Do not drive today. * Resume driving when surgeon permits. * Do not make important decisions or sign legal documents today. * Call surgeon for: 1. Temperature elevations greater than 101 degrees F. 2. Uncontrollable pain. 3. Excessive bleeding. 4. Persistent nausea and vomiting. 5. Medication intolerance (nausea, vomiting or rash). * For nausea and vomiting use only clear liquids such as: tea, soda, bouillon until nausea subsides, then gradually increase diet as tolerated. * If you have any concerns or questions, call your surgeon's office. If physician is unavailable and it is an emergency, call 911 or go to the nearest emergency room. . Instructions / Follow-Up Instructions / Follow-Up Please keep your previously scheduled follow-up appointment Diet Recommendations Home Diet: no limitations Procedures Procedures Performed: Right Extracorporeal Shock Wave Lithotripsy - Renal Pending Studies Studies pending at discharge: no Medical Emergencies . Who to Call and When: Medical Emergencies: If at any time you feel your situation is an emergency, please call 911 immediately. . Non-Emergent Contact Non-Emergency issues call your: Urologist Call Non-Emergent contact if: you have a fever, temperature is above 101.5, your pain is not controlled, your pain is worsening . . "Provider Documentation" section prepared by Vega Montgomery. .
--- NOTE | 2016-09-15 08:54 | DIAGNOSTIC IMAGING REPORT ---
KUB CLINICAL HISTORY: 60 years-old Female presenting with right ureteral stone. TECHNIQUE: Single supine view of the abdomen was obtained. COMPARISON: CT from 08/29/2016. FINDINGS: Placement of a right double-J nephroureteral stent. The previously noted obstructing proximal right ureteral calculus has been displaced into the lower pole of the right kidney. Additional nonobstructing left lower pole calculus is unchanged in position. Moderate stool burden mildly degrades evaluation. No gross pneumoperitoneum. Multiple phleboliths noted. Osseous structures within normal limits. IMPRESSION: 1. Interval placement of a right nephroureteral stent with displacement of the previously obstructing right ureteral calculus into the lower pole of the right kidney. Electronically signed by: Frank Sterling M.D. 09/15/2016 8:52 AM Dictated Date/Time: 09/15/2016 8:50 AM
[2016-09-15 09:18] VITALS: TEMP 37.1
[2016-09-15 09:38] VITALS: BP 98/65; PULSE 75; O2SAT 96
--- NOTE | 2016-09-15 09:50 | Anesthesia Progress Nt - [facility] ---
Anesthesia Post Op Note Date & Time Sep 15, 2016 at 09:49 Vital Signs Pain Intensity: 0 Vital Signs Past 12 Hours Date Time Temp Pulse Resp B/P (MAP) Pulse Ox O2 Delivery O2 Flow Rate FiO2 09/15/16 09:38 75 16 98/65 (76) 96 Room Air 09/15/16 09:18 37.1 72 16 105/68 (80) 97 Room Air 09/15/16 09:00 36.7 75 18 99/65 (71) 97 Room Air 09/15/16 08:55 102/65 09/15/16 08:53 72 16 09/15/16 08:53 71 16 100 09/15/16 08:50 104/65 09/15/16 08:48 76 22 09/15/16 08:48 77 22 100 09/15/16 08:46 92/70 09/15/16 08:43 73 15 100 09/15/16 08:43 73 15 09/15/16 08:40 103/65 09/15/16 08:38 75 18 100 09/15/16 08:38 76 18 09/15/16 08:37 75 20 09/15/16 08:37 75 20 100 09/15/16 08:36 107/67 09/15/16 08:33 37.0 78 18 105/69 98 Mask 5 09/15/16 08:32 77 22 105/69 97 09/15/16 08:32 77 22 09/15/16 06:32 37.2 81 20 109/70 (83) 97 Room Air Notes Mental Status: alert / awake / arousable, participated in evaluation Pt Amnestic to Procedure: Yes Nausea / Vomiting: adequately controlled Pain: adequately controlled Airway Patency, RR, SpO2: stable & adequate BP & HR: stable & adequate Hydration State: stable & adequate Anesthetic Complications: no major complications apparent
== END | disposition home or self-care (01) ==
LOC: X.SURG 06:10
PROVIDERS: ATTEND Urology
DX: N20.0 Calculus of kidney (principal); Z80.0 Family history of malignant neoplasm of digestive organs; Z84.1 Family history of disorders of kidney and ureter

== ENCOUNTER → 2016-09-18 | Outpatient (CLI) | payer OTHER ==
[~2016-09-18] MED LIST changes: -ACETAMINOPHEN 325 MG TAB PO PRN; -ATROPINE SULFATE 0.1 MG/ML 5ML SYR IV PRN; -CIPROFLOXACIN 400MG / D5W IV SCH; -DEXAMETHASONE SOD INJ 4 MG/ML VIAL IV PRN; -DEXAMETHASONE SOD INJ 4 MG/ML VIAL ONE; -EpHEDrine SULFATE INJ 50 MG/ML AMP IV PRN; -FENTANYL CITRATE INJ 50 MCG/1 ML 2 ML VIAL IV PRN; -FENTANYL CITRATE INJ 50 MCG/1 ML 2 ML VIAL ONE; -KETOROLAC TROMETHAMINE 30 MG/ML VIAL IV. PRN; -LABETALOL HCL IV 5 MG/ML 20ML IV PRN; -LACTATED RINGER'S 1000ML 1,000 ML IV SCH; -LIDOCAINE HCL 2% 2 ML VIAL (20MG/ML) ONE; -METOCLOPRAMIDE HCL INJ 5 MG/ML 2 ML VIAL IV PRN; -MIDAZOLAM HCL 1 MG/ML 2ML VIAL ONE; -MoRPHine SULFATE 10 MG/ML CARP/VIAL IV PRN; -ONDANSETRON INJ 2 MG/ML 2 ML VIAL IV PRN; -ONDANSETRON INJ 2 MG/ML 2 ML VIAL ONE; -OXYCODONE/ACETAMINOPHEN 5-325 TAB PO PRN; -PHENYLEPHRINE 100MCG/ML 5ML SYR IV PRN; -PROPOFOL IV EMULSION 10 MG/ML 20 ML VIAL IV ONE; -SODIUM CHLORIDE 0.9% 1000ML 1,000 ML IV SCH
--- NOTE | 2016-09-18 08:57 | DIAGNOSTIC IMAGING REPORT ---
KUB CLINICAL HISTORY: URETERAL STONE nephrocalcinosis COMPARISON STUDY: 09/14/2016 FINDINGS: Right kidney is obscured currently by overlying fecal material. The right renal calcification is poorly seen of this may be secondary to overlap artifact. The right ureteral stent remains in good position. Bowel pattern remains nonobstructive. IMPRESSION: 1. Right ureteral stent remains in good position. 2. Calcification previously described lower pole right kidney is not seen although this potentially is obscured by considerable overlying fecal material. The above report was generated using voice recognition software. It may contain grammatical, syntax or spelling errors. Electronically signed by: Juan Manuel Hernandez M.D. 09/18/2016 8:56 AM Dictated Date/Time: 09/18/2016 8:54 AM
== END | disposition home or self-care (01) ==
LOC: C.RAD 08:31
PROVIDERS: ATTEND Nurse Practitioner Adult Health
DX: N20.1 Calculus of ureter (principal)

== ENCOUNTER → 2016-09-18 | Outpatient (CLI) | payer OTHER | END | disposition home or self-care (01) | LOC: C.LABSPEC 17:12 | PROVIDERS: ATTEND Urology | DX: N20.1 Calculus of ureter (principal) ==

== ENCOUNTER → 2016-11-22 | Outpatient (CLI) | payer OTHER ==
--- NOTE | 2016-11-22 16:30 | DIAGNOSTIC IMAGING REPORT ---
PELVIS/BILATERAL HIP 2 VIEWS CLINICAL HISTORY: M25.551 pain COMPARISON STUDY: None FINDINGS: Degenerative change of the hips bilaterally considered moderate. This is rather significant involving the right hip with narrowing of the right hip joint space. Subchondral defect of the lateral margin right acetabulum. There is no evidence for a stable protrusion. There is no evidence for fracture. Mild peripheral osteophytic changes noted throughout both hips. IMPRESSION: 1. Moderate to rather significant degenerative change right and to a lesser extent left hip. Subchondral defect lateral right acetabulum considered chronic. 2. No evidence for fracture or acetabular protrusion. The above report was generated using voice recognition software. It may contain grammatical, syntax or spelling errors. Electronically signed by: Juan Manuel Hernandez M.D. 11/22/2016 4:29 PM Dictated Date/Time: 11/22/2016 4:27 PM
== END | disposition home or self-care (01) ==
LOC: C.RAD 16:06
PROVIDERS: ATTEND Chiropractor
DX: M25.551 Pain in right hip (principal)

== ENCOUNTER → 2017-02-21 | Outpatient (CLI) | payer BC ==
[2017-02-09 10:42] LABS: BLOOD UREA NITROGEN 21 mg/dl (7-18); BUN/CREATININE RATIO 21.6 (10-20); CREATININE 0.95 mg/dl (0.60-1.20)
[~2017-02-21] MED LIST changes: +OPTIRAY 300 IV PRN
--- NOTE | 2017-02-21 14:40 | DIAGNOSTIC IMAGING REPORT ---
IVP W/OR W/O TOMOGRAMS CLINICAL HISTORY: N20.1 Ureteral stoneno iodine allergy, latex allergy, not diabet nephrocalcinosis COMPARISON STUDY: 09/18/2016 FINDINGS: Survey film of the abdomen shows extensive bowel content obscuring the renal shadows bilaterally. There are several pelvic vascular calcifications. Survey tomographic sections demonstrates a 2 mm calcification lower pole left kidney. Study is performed following the administration of 100 cc of nonionic contrast. There is prompt opacification of the upper collecting systems bilaterally. There is no evidence for hydronephrosis or obstructive change. Ureters are normal in course and caliber. Bladder fills well. There is no significant post void residual. IMPRESSION: 1. 2 mm nonobstructing lower pole left renal calcification. 2. Study is otherwise unremarkable. 3. No evidence for an obstructing urinary tract calculus. The above report was generated using voice recognition software. It may contain grammatical, syntax or spelling errors. Electronically signed by: Juan Manuel Hernandez M.D. 02/21/2017 2:24 PM Dictated Date/Time: 02/21/2017 2:22 PM
== END | disposition home or self-care (01) ==
LOC: C.RAD 12:20
PROVIDERS: ATTEND Urology
DX: N20.1 Calculus of ureter (principal); N20.0 Calculus of kidney

== ENCOUNTER → 2017-06-13 | Outpatient (CLI) | payer BC ==
[~2017-06-13] MED LIST changes: -OPTIRAY 300 IV PRN
--- NOTE | 2017-06-14 14:54 | MAMMOGRAPHY REPORT ---
BILATERAL DIGITAL SCREENING MAMMOGRAM TOMOSYNTHESIS WITH CAD: 06/13/2017 CLINICAL HISTORY: Routine screening. Patient has no complaints. TECHNIQUE: Breast tomosynthesis in addition to standard 2D mammography was performed. Current study was also evaluated with a Computer Aided Detection (CAD) system. COMPARISON: Comparison is made to exams dated: 05/23/2016 mammogram, 05/18/2015 mammogram, 05/14/2014 m ammogram, 05/06/2013 mammogram, 03/25/2010 mammogram, and 03/24/2009 mammogram - [facility] enter. BREAST COMPOSITION: There are scattered areas of fibroglandular density in both breasts. FINDINGS: There are prominent bilateral axillary lymph nodes, for which additional imaging evaluation with ultrasound is recommended. The remainder of both breasts are stable compared to prior exams, wi thout suspicious masses, calcifications, or areas of architectural distortion noted. IMPRESSION: ACR BI-RADS CATEGORY 0: INCOMPLETE EVALUATION: NEED ADDITIONAL IMAGING EVALUATION Prominent bilateral axillary lymph nodes, for which additional imaging evaluation is recommended. Th e patient will be called to schedule an appointment. Approximately 10% of breast cancers are not detected with mammography. A negative mammographic report should not delay biopsy if a clinically suggestive mass is present. Vanessa Palafox M.D. 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
== END | disposition home or self-care (01) ==
LOC: C.MAMM 16:43
PROVIDERS: ATTEND Family Medicine
DX: Z12.31 Encounter for screening mammogram for malignant neoplasm of breast (principal); R59.1 Generalized enlarged lymph nodes

== ENCOUNTER → 2017-07-02 | Outpatient (CLI) | payer BC ==
--- NOTE | 2017-07-02 14:29 | Discharge Instructions ---
Discharge Instructions Procedure Procedure Date: July 02, 2017. Reason for visit: Left Axillary Lymph Node. Discharge Discharge Date: July 02, 2017. Discharge Diagnosis: post left axillary lymph node biopsy Instructions Activity Recommendations: Additional Limitations (see below) Return to School/Work: no limitations Recommended Home Diet: No Limitations Provider Instructions: ACTIVITY RECOMMENDATIONS: * No lifting, pushing, pulling or exercising the affected side for three days. RETURN TO SCHOOL/WORK: * You may return to work/school after the procedure, but do not perform any strenuous activities for 24 to 48 hours. MEDICATIONS: * Tylenol (two 325 mg) every four to six hours if needed for mild pain (if not allergic to Tylenol). DIET: * Resume previous diet. SPECIAL CARE INSTRUCTIONS: * Keep biopsy site dry for 24 hours. May shower after 24 hours, but do not soak (bathe) incision. * May remove Tegaderm (plastic patch) tomorrow AFTER showering. * Leave the steri-strips on for one week. Allow the steri-strips to fall off by themselves. If not off after one week, you may remove them. You may place a Bandaid crosswise over the strips, if desired. * Apply ice 10 minutes on and 10 minutes off as needed. * Wear a bra at bedtime to sleep more comfortably for 2-3 days. * Your referring physician should have the results after approximately 5 to 7 business days. * Call for unusual bleeding, fever, drainage, etc or if you have any questions call [phone] during normal business hours or after hours call Dr Lora, . FOLLOW UP VISIT: Follow-up with Referring Physician as scheduled. Allergies Coded Allergies: Flu Virus Vaccine (Verified Allergy, Unknown, "my red blood cells drop", ) Latex1 -Allergic Contact Dermititis (Verified Allergy, Unknown, gets rash , 09/15/16) Rachel Perez Recommendations: Call your doctor if: * Temperature above 101 degrees * Pain not relieved by pain medicine ordered * There is increased drainage or redness from any incision * You have any unanswered questions or concerns. Your Doctors Instructions noted above were prepared by provider Erica Lora. Patient Signature Section: Patient Instructions Signature Page Latasha Devin Patient (or Guardian) Signature/Date: I have read and understand the instructions given to me by my caregivers. Caregiver/RN/Doctor Signature/Date: The above-named patient and/or guardian has received patient instructions on this date. + Original Patient Signature Page (only) stays with chart. Please make copy for patient.
--- NOTE | 2017-07-03 15:11 | MAMMOGRAPHY REPORT ---
ULTRASOUND GUIDED BIOPSY LEFT BREAST: 07/02/2017 CLINICAL HISTORY: Enlarging bilateral axillary lymph nodes. Patient presents for ultrasound-guided c ore biopsy of one sales service representative lymph node in the left axilla. COMPARISON: Comparison is made to exams dated: 06/25/2017 ultrasound, 06/13/2017 mammogram, 05/23/2016 mammogram, 06/09/2015 mammogram, 05/14/2014 mammogram, and 05/18/2015 mammogram - [facility]. PATIENT CONSENT: The procedure, risks and benefits were discussed with the patient and informed conse nt was obtained both verbally and in writing. Specific risks to this procedure include: bleeding, in fection, puncture of adjacent structure, nontarget biopsy, sampling error, pain, metal allergy and me dication reaction. PROCEDURE DESCRIPTION: A time out was performed and the left axillary lymph node was agreed as the si te of biopsy. The skin was prepped and draped in the usual sterile fashion. The most prominent and albrecht perficial morphologically abnormal lymph node in the left axilla was identified and chosen as the tar get for biopsy. Subcutaneous and intraparenchymal 1% buffered lidocaine, with and without epinephrine , was administered as local anesthesia. A skin incision was made. Through the incision, 6 samples we re taken with an 18 gauge Quick Core biopsy device. An orb shaped metallic marker was placed at the b iopsy site. Hemostasis was achieved after manual compression. The patient tolerated the procedure wel l and there was no immediate complication. The samples were sent stat to the pathology department on a saline soaked Telfa pad. A post procedure left MLO tomosynthesis view was obtained which demonstrates the metallic biopsy yonathan er clip within a prominent lymph node in the left axilla. No significant postbiopsy hematoma is seen . IMPRESSION: ULTRASOUND GUIDED BIOPSY Status post ultrasound-guided core biopsy of a morphologically abnormal left axillary lymph node, wit h biopsy marker clip placed at the site. The patient will receive notification of the biopsy results from her referring physician. Erica Lora M.D. ay/:07/02/2017 15:22:22 Flap Presser: Grace GANDHI)(Justo), [facility]
--- NOTE | 2017-07-03 15:12 | MAMMOGRAPHY REPORT ---
UNILATERAL LEFT DIGITAL DIAGNOSTIC MAMMOGRAM TOMOSYNTHESIS: 07/02/2017 CLINICAL HISTORY: Enlarging bilateral axillary lymph nodes. Patient presents for ultrasound-guided c ore biopsy of one senior account representative lymph node in the left axilla. Patient has a history of Sjogren's a nd hemolytic anemia. Please refer to the report from left axillary lymph node biopsy performed at the same time for full d etail. IMPRESSION: POST PROCEDURE IMAGING FOR MARKER PLACEMENT Please refer to the report from left axillary lymph node biopsy performed at the same time for full d etail. Approximately 10% of breast cancers are not detected with mammography. A negative mammographic report should not delay biopsy if a clinically suggestive mass is present. Erica Lora M.D. ay/:07/02/2017 15:17:41 Commanding Officer Homicide Squad: Grace TYSON(Paul)(Justo), [facility] BI-RADS Code: Post Procedure Imaging For Marker Placement
== END | disposition home or self-care (01) ==
LOC: C.MAMM 13:38
PROVIDERS: ATTEND Family Medicine
DX: R59.0 Localized enlarged lymph nodes (principal)

== ENCOUNTER 2019-02-04 21:52 | Inpatient (IN) ==
[2019-02-04] MEDS ORDERED: SODIUM CHLORIDE 0.9% 1000ML 1,000 ML IV ONE ×2 (22:17→23:53)
[2019-02-04] MEDS ORDERED: MoRPHine SULFATE 4 MG/ML 1 ML CARP\\VIAL IV STA (22:25)
[2019-02-04] MEDS ORDERED: ONDANSETRON INJ 2 MG/ML 2 ML VIAL IV STA (22:25)
--- NOTE | 2019-02-04 22:31 | Emergency Department Note ---
History of Present Illness General Chief Complaint: Flank Pain Stated Complaint: RASH ON FACE, SHARP PAIN ON SIDE AND BACK Source: patient Mode of arrival: ambulatory Limitations: no limitations History of Present Illness Provider complaint: fever, malaise and other (right flank pain, rash) Onset (ago): day(s) 2 Maximum Temperature: 100.4 C Temperature Source: oral Maximum Pain Intensity: 9 Current Pain Intensity: 9 Context: + recent procedure (right hip replacement) and + recent antibiotic use Associated symptoms: + chills, + myalgias, + sore throat, + nausea and + dysuria Relieved By: + nothing Exacerbated By: + nothing Treatments prior to arrival fever: + ibuprofen This 63-year-old female patient 2 weeks status post right hip replacement, presents emergency department today, ambulatory, complaining of right flank pain, fever, body aches, and rash. The patient states symptoms are consistent with kidney stone she has experienced in the past, but states she has had large stones which got infected, causing a pyelonephritis, and "almost went into septic shock" in the past. The patient states last evening, she developed the right flank pain. The pain has been progressively worsening throughout the day. For the past 2 days, she has been experiencing sore throat and today awoke with a rash on her face. As the day has gone on, the rash is spread. She states she is walking unassisted and denies any complications with the incision or right hip. She denies any pain in the right hip or incision and denies any purulent discharge. She is scheduled to see her orthopedic surgeon on for a follow-up. The patient states she was experiencing a cramping sensation in her abdomen and right flank while lying on her left side earlier this evening. She went to the bathroom and states she did feel better. She describes associated urinary frequency, dysuria, and some burning. She states cleansing the genitals with soap and water did seem to help. She took 400 mg of ibuprofen just prior to arrival and has otherwise been on Celebrex, aspirin, and Aleve for pain. Last dose of oxycodone was on Sunday morning. Last dose of her antibiotic, cefadroxil, was yesterday. She states the rash is itchy and uncomfortable on her face, torso, and extremities. She denies any new soaps, exposures, or products. Home Medications Home Medications Medication Instructions Recorded Confirmed Type levothyroxine 150 mcg PO QAM 03/20/18 02/04/19 History ursodiol 600 mg PO BID 03/20/18 02/04/19 History aspirin [Aspirin Low Dose] 81 mg PO DAILY 02/04/19 02/04/19 History celecoxib [Celebrex] 200 mg PO DAILY 02/04/19 02/04/19 History docusate sodium 100 mg PO BID 02/04/19 02/04/19 History naproxen sodium [Aleve] 440 mg PO BID PRN 02/04/19 02/04/19 History no.144-folic acid 400 mcg PO DAILY 02/04/19 02/04/19 History [] senna 8.6 mg PO DAILY PRN 02/04/19 02/04/19 History Allergies Allergy/AdvReac Type Severity Reaction Status Date / Time Cephalosporins Allergy Mild Rash Verified 02/05/19 00:18 latex Allergy Unknown gets rash Verified 02/04/19 23:22 Flu Virus Vaccine Allergy Unknown "my red Uncoded 02/04/19 23:22 blood cells drop" Past Med/Surg History Medical History Anemia AUTOIMMUNE HEMOLYTIC ANEMIA-F/U DR COX Chronic liver disease PRIMARY BILIARY CIRRHOSIS-F/U DR [facility] Hypothyroidism Kidney stones Surgical History History of section X 2 History of colonoscopy History of cystoscopy WITH STENT History of lithotripsy Social History Preferred Language: Estonian Communication Ability: Effective Ops Manager Required: No Beliefs That Will Affect Care: None Current Living Situation: Spouse Other Information That Helps Us Care for You: No Feels Safe at Home: Yes Safety Concerns: Feels Safe At This Time Smoking Status: Former smoker Do You Dip or Chew Tobacco: No ; Second Hand Exposure: No ; Hx Alcohol Use: Yes Alcohol type: beer Hx Substance Use: No Review of Systems A total of 10 systems reviewed and were otherwise negative Physical Exam Vital Signs Vital Signs - 24 hr 02/04/19 21:54 02/04/19 22:43 02/04/19 23:22 Temperature 37.8 C H Temperature Source Oral Pulse Rate 116 H Pulse Rate [Finger] 97 H Respiratory Rate 22 18 Respiratory Effort / Characteristics Non-Labored Spontaneous Respiratory Depth Normal Respiratory Pattern Regular Blood Pressure 134/80 Blood Pressure [Right Arm] 123/78 Blood Pressure Mean 98 Blood Pressure Mean [Right Arm] 93 Blood Pressure Position Sitting Pulse Oximetry 97 98 96 Oxygen Delivery Method Room Air Room Air Room Air Sepsis Recent Fever Within 48 Hours No Sepsis Action Taken by Nursing No Action Required 02/05/19 00:30 02/05/19 02:16 Temperature Temperature Source Pulse Rate Pulse Rate [Finger] 98 H 94 H Respiratory Rate 18 18 Respiratory Effort / Characteristics Respiratory Depth Respiratory Pattern Blood Pressure Blood Pressure [Right Arm] 127/54 L 94/61 L Blood Pressure Mean Blood Pressure Mean [Right Arm] 78 72 Blood Pressure Position Pulse Oximetry 96 96 Oxygen Delivery Method Room Air Room Air Sepsis Recent Fever Within 48 Hours Sepsis Action Taken by Nursing VITALS: Vitals are noted on the nurse's note and reviewed by myself. Vital signs stable. GENERAL: This is a 63-year-old white female, in no acute distress, nondiaphoretic, well-developed well-nourished. SKIN: Maculopapular rash diffusely on the torso and extremities with no excoriations, discharge, or significant edema. No tenderness to palpation. The rash does katie with pressure. The skin was otherwise without erythema, edema, or bruising. There is no tenting of the skin. Capillary refill less than 2 seconds. HEAD: Normocephalic atraumatic. EARS: External auditory canals clear, tympanic membranes pearly armenta without erythema or effusion bilaterally. EYES: Pupils equal round and reactive to light and accommodation. Conjunctivae without injection, sclerae without icterus. Extraocular movements intact. NOSE: Patent, turbinates without inflammation or discharge. No sinus tenderness. MOUTH: Mucous membranes moist. Tonsils are not enlarged. Pharynx without erythema or exudate. Uvula midline. Airway patent. Tongue does not deviate. NECK: Supple without nuchal rigidity. No lymphadenopathy. No thyromegaly. Cervical spine is nontender. No JVD. HEART: Regular rate and rhythm without murmurs gallops or rubs. LUNGS: Clear to auscultation bilaterally without wheezes, rales or rhonchi. No retractions or accessory muscle use. ABDOMEN: Positive bowel sounds x 4. Normal tympanic percussion. Soft, nontender, without masses or organomegaly. Gallegos sign negative. No guarding or rebound tenderness. Right CVA tenderness. MUSCULOSKELETAL: No muscle atrophy, erythema, or edema noted. Full range of motion without joint tenderness in all extremities. No tenderness to palpation. Specifically, no tenderness of the right hip. Full range of motion at the hip joint. Incision site without surrounding erythema, purulent discharge, or edema. Normal gait. Strength 5/5 throughout. NEURO: Patient was alert and oriented to person place and time. Normal sensa tion to light and sharp touch. No focal neurological deficits. Course The patient was seen and evaluated as above. Previous medical records reviewed. IV access obtained, labs drawn. Patient medicated with IV fluids, morphine, Zofran. Imaging performed and reviewed by myself and radiologist as above. Labs reviewed by myself. I discussed the findings with the patient at bedside. I did recommend admission. The patient was agreeable. She was medicated with IV Levaquin. I discussed the case with my attending. I discussed the case with Dr. Reddy. He did agree to accept the patient for admission. Administered Medications Lactated Ringer's (Lr) 1,000 mls @ 100 mls/hr IV .Q10H BRANDIE Stop: 03/07/19 00:14 Last Admin: 02/05/19 01:30 Dose: 100 mls/hr Documented by: [id number] Levothyroxine Sodium (Synthroid) 150 mcg PO DAILYBB BRANDIE Stop: 03/07/19 06:29 Last Admin: 02/05/19 05:07 Dose: 150 mcg Documented by: [id number] Discontinued Medications Acetaminophen (Tylenol) 650 mg PO NOW STA Stop: 02/05/19 00:02 Last Admin: 02/05/19 00:07 Dose: 650 mg Documented by: [id number] Diphenhydramine HCl (Benadryl) 12.5 mg IV NOW STA Stop: 02/05/19 00:18 Last Admin: 02/05/19 00:21 Dose: 12.5 mg Documented by: [id number] Sodium Chloride (Nss 1000ml) 1,000 mls @ 999 mls/hr IV .Q1H1M ONE Stop: 02/04/19 23:17 Last Infusion: 02/04/19 23:41 Dose: 0 mls/hr Documented by: [id number] Admin: 02/04/19 22:38 Dose: 999 mls/hr Documented by: [id number] Levofloxacin/Dextrose (Levaquin/D5w) 750 mg in 150 mls @ 100 mls/hr IV NOW STA Stop: 02/05/19 01:17 Last Infusion: 02/05/19 01:27 Dose: 0 mls/hr Documented by: [id number] Admin: 02/04/19 23:55 Dose: 100 mls/hr Documented by: [id number] Sodium Chloride (Nss 1000ml) 1,000 mls @ 999 mls/hr IV .Q1H1M ONE Stop: 02/05/19 00:53 Last Infusion: 02/05/19 00:58 Dose: 0 mls/hr Documented by: [id number] Admin: 02/04/19 23:55 Dose: 999 mls/hr Documented by: [id number] Magnesium Sulfate/Dextrose (Magnesium Sulfate / D5w) 1 gm in 100 mls @ 100 mls/hr IV ONE ONE Stop: 02/05/19 05:03 Last Infusion: 02/05/19 06:19 Dose: 0 mls/hr Documented by: [id number] Admin: 02/05/19 05:06 Dose: 100 mls/hr Documented by: [id number] Loratadine (Claritin) 10 mg PO NOW STA Stop: 02/05/19 00:19 Last Admin: 02/05/19 00:20 Dose: 10 mg Documented by: [id number] Miscellaneous (Patient's Height And/Or Weight Needed) 1 ea N/A Q2H BRANDIE Stop: 03/07/19 04:29 Last Admin: 02/05/19 05:37 Dose: Not Given Documented by: [id number] Morphine Sulfate (Morphine Sulfate) 4 mg IV NOW STA Stop: 02/04/19 22:26 Last Admin: 02/04/19 22:38 Dose: 4 mg Documented by: [id number] Ondansetron HCl (Zofran) 4 mg IV NOW STA Stop: 02/04/19 22:26 Last Admin: 02/04/19 22:38 Dose: 4 mg Documented by: [id number] Tamsulosin HCl (Flomax) 0.4 mg PO NOW STA Stop: 02/05/19 00:05 Last Admin: 02/05/19 00:07 Dose: 0.4 mg Documented by: [id number] Medical Decision Making Differential Diagnosis + cellulitis, + fever of unknown origin, + gastroenteritis, + community acquired pneumonia, + pyelonephritis, + viral infection, + sepsis, + influenza, + viral syndrome, + strep pharyngitis, + tonsillitis, + mononucleosis, + meningitis, + encephalitis, + Lyme disease, + bronchitis and + pneumonia Medical Records Attestation: I reviewed the patient's medical records. Records obtained from [facility] to evaluate for recent antibiotic. Patient was on cefadroxil postop. History of pyelonephritis and infected kidney stones reviewed. Patient had previously been treated with IV Rocephin as an inpatient. Home Medications Current Medication List: was personally reviewed by me Laboratory Data Attestation: I reviewed the patient's lab results. No leukocytosis, significant anemia, thrombocytopenia. Renal, hepatic function, and electrolytes without significant abnormality. Coags normal. TSH 1.9. Lactate 1.0. Urinalysis positive for nitrates, 4+ bacteria. Result diagrams: 02/04/19 22:35 02/04/19 22:35 Lab Results 02/04/19 02/04/19 02/04/19 Range/Units 22:35 22:35 22:35 WBC 5.84 (4.8-10.8) K/uL RBC 3.78 L (4.2-5.4) M/uL Hgb 11.7 L (12.0-16.0) g/dL Hct 33.8 L (37-47) % MCV 89.4 (80-100) fL MCH 31.0 (25-34) pg MCHC 34.6 (32-36) g/dL RDW Std Deviation 49.5 H (36.4-46.3) fL RDW Coeff of Lakhwinder 15.2 H (11.5-14.5) % Plt Count 216 (130-400) K/uL MPV 8.8 (7.4-10.4) fL Immature Gran % (Auto) 0.3 % Neut % (Auto) 87.8 % Lymph % (Auto) 7.0 % [place] % (Auto) 3.8 % Eos % (Auto) 0.9 % Baso % (Auto) 0.2 % Immature Gran # (Auto) 0.02 (0.00-0.02) K/uL Neut # (Auto) 5.13 (1.4-6.5) K/uL Lymph # (Auto) 0.41 L (1.2-3.4) K/uL [place] # (Auto) 0.22 (0.11-0.59) K/uL Eos # (Auto) 0.05 (0-0.5) K/uL Baso # (Auto) 0.01 (0-0.2) K/uL PT 10.0 (9.0-12.0) Seconds INR 1.0 (0.9-1.1) APTT 23.3 (21.0-31.0) Seconds PTT Ratio 0.9 Sodium 138 (136-145) mmol/L Potassium 3.7 (3.5-5.1) mmol/L Chloride 110 H (98-107) mmol/L Carbon Dioxide 19 L (21-32) mmol/L Anion Gap 9.0 (3-11) BUN 22 H (7-18) mg/dl Creatinine 1.12 (0.6-1.2) mg/dl Est Cr Clr Drug Dosing Not Reportable Est GFR ( Amer) 60.5 Est GFR (Non-Af Amer) 52.2 BUN/Creatinine Ratio 19.8 (10-20) Glucose 120 H (70-99) mg/dl Lactate (0.4-2.0) mmol/L Calcium 9.4 (8.5-10.1) mg/dl Magnesium 1.7 L (1.8-2.4) mg/dl Total Bilirubin 1.1 H (0.2-1) mg/dl AST 26 (15-37) U/L ALT 15 (12-78) U/L Alkaline Phosphatase 227 H (45-117) U/L Total Protein 7.2 (6.4-8.2) gm/dl Albumin 3.4 (3.4-5.0) gm/dl Globulin 3.8 (2.5-4.0) gm/dl Albumin/Globulin Ratio 0.9 (0.9-2) TSH 1.900 (0.300-4.500) uIu/ml Urine Color Urine Appearance (Clear) Urine pH (4.5-7.5) Ur Specific [place] (1.000-1.030) Urine Protein (Negative) Urine Glucose (UA) (Negative) Urine Ketones (Negative) Urine Blood (Negative) Urine Nitrite (Negative) Urine Bilirubin (Negative) Urine Urobilinogen (Negative) Ur Leukocyte Esterase (Negative) Urine WBC (Auto) (0-5) /hpf Urine RBC (Auto) (0-4) /hpf U Hyaline Cast (Auto) (0-5) /lpf U Epithel Cells (Auto) (0-5) /lpf Urine Bacteria (Auto) (Negative) Urine Crystals Calcium Oxalate Crystal (None Prsent) Urine Yeast 02/04/19 02/04/19 Range/Units 22:35 23:24 WBC (4.8-10.8) K/uL RBC (4.2-5.4) M/uL Hgb (12.0-16.0) g/dL Hct (37-47) % MCV (80-100) fL MCH (25-34) pg MCHC (32-36) g/dL RDW Std Deviation (36.4-46.3) fL RDW Coeff of Lakhwinder (11.5-14.5) % Plt Count (130-400) K/uL MPV (7.4-10.4) fL Immature Gran % (Auto) % Neut % (Auto) % Lymph % (Auto) % [place] % (Auto) % Eos % (Auto) % Baso % (Auto) % Immature Gran # (Auto) (0.00-0.02) K/uL Neut # (Auto) (1.4-6.5) K/uL Lymph # (Auto) (1.2-3.4) K/uL [place] # (Auto) (0.11-0.59) K/uL Eos # (Auto) (0-0.5) K/uL Baso # (Auto) (0-0.2) K/uL PT (9.0-12.0) Seconds INR (0.9-1.1) APTT (21.0-31.0) Seconds PTT Ratio Sodium (136-145) mmol/L Potassium (3.5-5.1) mmol/L Chloride (98-107) mmol/L Carbon Dioxide (21-32) mmol/L Anion Gap (3-11) BUN (7-18) mg/dl Creatinine (0.6-1.2) mg/dl Est Cr Clr Drug Dosing Est GFR ( Amer) Est GFR (Non-Af Amer) BUN/Creatinine Ratio (10-20) Glucose (70-99) mg/dl Lactate 1.0 (0.4-2.0) mmol/L Calcium (8.5-10.1) mg/dl Magnesium (1.8-2.4) mg/dl Total Bilirubin (0.2-1) mg/dl AST (15-37) U/L ALT (12-78) U/L Alkaline Phosphatase (45-117) U/L Total Protein (6.4-8.2) gm/dl Albumin (3.4-5.0) gm/dl Globulin (2.5-4.0) gm/dl Albumin/Globulin Ratio (0.9-2) TSH (0.300-4.500) uIu/ml Urine Color Dark Yellow Urine Appearance Cloudy A (Clear) Urine pH 6.5 (4.5-7.5) Ur Specific [place] 1.021 (1.000-1.030) Urine Protein 1+ H (Negative) Urine Glucose (UA) Negative (Negative) Urine Ketones Negative (Negative) Urine Blood 2+ H (Negative) Urine Nitrite Positive A (Negative) Urine Bilirubin Negative (Negative) Urine Urobilinogen Negative (Negative) Ur Leukocyte Esterase 2+ H (Negative) Urine WBC (Auto) >30 H (0-5) /hpf Urine RBC (Auto) 5-10 H (0-4) /hpf U Hyaline Cast (Auto) 5-10 H (0-5) /lpf U Epithel Cells (Auto) 10-20 H (0-5) /lpf Urine Bacteria (Auto) 4+ H (Negative) Urine Crystals Not Reportable Calcium Oxalate Crystal Present A (None Prsent) Urine Yeast Not Reportable Imaging Data Radiologist's Impression: XR chest 1V portable CLINICAL HISTORY: Sepsis pain COMPARISON STUDY: 08/29/2016 FINDINGS: Lungs are considered clear. Chronic linear scarring left base considered unchanged. Slight prominence of the pulmonary vasculature. IMPRESSION: Slight prominence of the pulmonary vasculature. Trace pleural fluid left base. No acute infiltrate. The above report was generated using voice recognition software. It may contain grammatical, syntax or spelling errors. Electronically signed by: Juan Manuel Hernandez M.D. 02/04/2019 10:[address] ABDOMEN & PELVIS Without Contrast: There is a 4.6 mm stone lodged within the distal right ureter just prior to the UVJ with moderate upstream hydroureteronephrosis. A few additional nonobstructing stones within the kidneys bilaterally. No hydronephrosis on the left. The bladder is decompressed. Simple appearing fluid collection within the musculature along the anterior aspect of the right femoral neck favored to represent a seroma as there appears to be an overlying incision line. Nodularity along the inferior pleura on the left, possibly just trace fluid. Radiologist: Walter Harris MD Blood Pressure Blood Pressure Findings: Normal blood pressure MDM Narrative This 63-year-old female patient presents emergency department today due to right flank pain, fever, and dysuria. Symptoms began 1 day ago. The patient is 2 weeks status post right hip replacement. She denies any pain, redness, or discharge in the area of the replacement or incision. Work-up here in the ED does show a 4.6 mm stone lodged within the distal right ureter just prior to the UVJ with upstream hydroureteronephrosis. The urinalysis does appear infected, and due to these findings, I did recommend admission for IV antibiotics, especially given the patient's recent surgical procedure. The patient initially had a low-grade fever and was tachycardic. Symptoms improved significantly while here. I am concerned for possible allergic reaction to antibiotics patient was on postop. She will be started on Levaquin here in the ED. She will be admitted for IV antibiotics and ongoing management of the infected stone. Please see hospitalist dictation regarding ongoing management care of this patient. The chart was completed utilizing [employer] Speech voice recognition software. Grammatical errors, random word insertions, pronoun errors, and incomplete sentences are an occasional consequence of this system due to software limitations, ambient noise, and hardware issues. Any formal questions or concerns about the content, text, or information contained within the body of this dictation should be directly addressed to the provider for clarification. Impression & Plan UTI (urinary tract infection), Fever, Calculus, ureteral, Tachycardia Discharge Plan Visit Data *Final* Discharge Date/Time: 02/05/19 03:32 Chief Complaint: Flank Pain Stated Complaint: RASH ON FACE, SHARP PAIN ON SIDE AND BACK ED Provider: Magno Pierce ED Midlevel Provider: Gretchen Li Discharge Problem: UTI (urinary tract infection), Fever, Calculus, ureteral, Tachycardia Patient Disposition: Admitted As Inpatient Condition: Good Discharge Instructions Interventions: ED Discharge Assessment Last Done: 02/05/19 03:32 Discharge Problem: UTI (urinary tract infection) Qualifiers: Urinary tract infection type: site unspecified Hematuria presence: with yung turia Qualified Code(s): N39.0 - Urinary tract infection, site not specified Fever Qualifiers: Fever type: due to other condition Qualified Code(s): R50.81 - Fever presenting with conditions classified elsewhere
[2019-02-04 22:45] LABS: Basophils # (auto) 0.01 K/uL (0-0.2); Basophils % (auto) 0.2 %; Eosinophils # (auto) 0.05 K/uL (0-0.5); Eosinophils % (auto) 0.9 %; Hematocrit (blood only) 33.8 % (37-47); Hemoglobin 11.7 g/dL (12.0-16.0); Immature Granulocytes # (auto) 0.02 K/uL (0.00-0.02); Immature Granulocytes % (auto) 0.3 %; Lymphocytes # (auto) 0.41 K/uL (1.2-3.4); Mean Corpuscular Hgb Conc 34.6 g/dL (32-36); Mean Corpuscular Volume 89.4 fL (80-100); Mean Platelet Volume 8.8 fL (7.4-10.4); Monocytes # (auto) 0.22 K/uL (0.11-0.59); Monocytes % (auto) 3.8 %; Neutrophils # (auto) 5.13 K/uL (1.4-6.5); Neutrophils % (auto) 87.8 %; Platelet Count 216 K/uL (130-400); RDW Coefficient of Variation 15.2 % (11.5-14.5); RDW Standard Deviation 49.5 fL (36.4-46.3); Red Blood Count 3.78 M/uL (4.2-5.4); White Blood Count 5.84 K/uL (4.8-10.8)
[2019-02-04 22:55] LABS: Partial Thromboplastin Ratio 0.9; Partial Thromboplastin Time 23.3 Seconds (21.0-31.0)
--- NOTE | 2019-02-04 22:59 | XRay Report ---
XR chest 1V portable CLINICAL HISTORY: Sepsis pain COMPARISON STUDY: 08/29/2016 FINDINGS: Lungs are considered clear. Chronic linear scarring left base considered unchanged. Slight prominence of the pulmonary vasculature. IMPRESSION: Slight prominence of the pulmonary vasculature. Trace pleural fluid left base. No acute infiltrate. The above report was generated using voice recognition software. It may contain grammatical, syntax or spelling errors. Electronically signed by: Juan Manuel Hernandez M.D. 02/04/2019 10:58 PM
[2019-02-04 23:07] LABS: Alanine Aminotransferase 15 U/L (12-78); Albumin Level 3.4 gm/dl (3.4-5.0); Aspartate Aminotransferase 26 U/L (15-37); BUN Creatinine Ratio 19.8 (10-20); Blood Urea Nitrogen 22 mg/dl (7-18); Calcium 9.4 mg/dl (8.5-10.1); Carbon Dioxide 19 mmol/L (21-32); Chloride 110 mmol/L (98-107); Est GFR (African American) 60.5; Est GFR (Non-African American) 52.2; Glucose 120 mg/dl (70-99); Potassium 3.7 mmol/L (3.5-5.1); Sodium 138 mmol/L (136-145)
[2019-02-04 23:10] LABS: Albumin Globulin Ratio 0.9 (0.9-2); Alkaline Phosphatase 227 U/L (45-117); Bilirubin,Total 1.1 mg/dl (0.2-1); Globulin 3.8 gm/dl (2.5-4.0); Total Protein 7.2 gm/dl (6.4-8.2)
[2019-02-04 23:35] LABS: Appearance Urine Cloudy (Clear); Bacteria Urine Automated 4+ (Negative); Bilirubin Urine Negative (Negative); Blood Urine 2+ (Negative); Color Urine Dark Yellow; Glucose Urine UA Negative (Negative); Ketones Urine Negative (Negative); Leukocyte Esterase Urine 2+ (Negative); Nitrite Urine Positive (Negative); Protein Urine 1+ (Negative); Specific Gravity Urine 1.021 (1.000-1.030); Urobilinogen Urine Negative (Negative); WBC Urine Automated >30 /hpf (0-5); pH Urine 6.5 (4.5-7.5)
[2019-02-04 23:45] LABS: Calcium Oxalate Crystals Urine Present (None Prsent)
[2019-02-04] MEDS ORDERED: LEVOFLOXACIN/D5W 750 MG/150 ML BAG IV STA (23:48)
[2019-02-05] MEDS ORDERED: ACETAMINOPHEN 325 MG TAB PO STA (00:01)
[2019-02-05] MEDS ORDERED: TAMSULOSIN HCL 0.4 MG CAP PO STA (00:04)
[2019-02-05] MEDS ORDERED: DiphenhydrAMINE HCL 50 MG/ML VIAL IV STA (00:17)
[2019-02-05] MEDS ORDERED: LORATADINE 10 MG TAB PO STA (00:18)
[2019-02-05 00:20] LABS: Magnesium 1.7 mg/dl (1.8-2.4)
[2019-02-05] MEDS: LACTATED RINGER'S 1,000 ML IV SCH ×3 (01:30→20:19)
[2019-02-05] MEDS ORDERED: PROMETHAZINE HCL 12.5 MG in SODIUM CHLORIDE 0.9% 50 ML IV PRN (04:04)
[2019-02-05] MEDS ORDERED: OXYCODONE HCL IR 5 MG TAB (IMMEDIATE RELEASE) PO PRN (04:04)
[2019-02-05] MEDS ORDERED: LORazepam 0.25 MG/0.5 ML VIAL IV PRN (04:04)
[2019-02-05] MEDS ORDERED: MAGNESIUM SULFATE / D5W 1 GM/100 ML BAG IV ONE (04:04)
[2019-02-05] MEDS ORDERED: SENNA 8.6 MG TAB PO PRN (04:22)
[2019-02-05] MEDS ORDERED: CIPROFLOXACIN CONSULT ACTIVE PRN (04:23)
[2019-02-05] MEDS ORDERED: PATIENT'S HEIGHT AND/OR WEIGHT NEEDED SCH (04:30)
[2019-02-05] MEDS: LEVOTHYROXINE SODIUM 150 MCG TABLET PO SCH (05:07)
--- NOTE | 2019-02-05 05:40 | History & Physical Report ---
Date of Service February 05, 2019 Assessment & Plan (1) Sepsis: Secondary to complicated UTI secondary to obstructive uropathy Hypersensitivity reaction ? 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 SCDs Full code History of Present Illness Chief Complaint: Right flank pain Primary Care Provider: Lashawn Mendenhall, History obtained from patient and records. 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 Recent [facility] confinement August 2016 for septic shock secondary to complicated UTI/E. coli bacteremia. Recent confinement [facility] 2 weeks ago for elective right hip replacement. Uncomplicated immediate postop course as per records. Patient prescribed oral cephalosporin course postop. Yesterday, patient noted achy right flank pain reminiscent of kidney stone pain. Patient also noted fever, body aches. No hematuria. Pruritic rash noted over face and right lower extremity. No chest pain, no S OB. At the ER, patient given Levaquin for sepsis. 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 Allergies Allergy/AdvReac Type Severity Reaction Status Date / Time Cephalosporins Allergy Mild Rash Verified 02/05/19 00:18 latex Allergy Unknown gets rash Verified 02/04/19 23:22 Flu Virus Vaccine Allergy Unknown "my red Uncoded 02/04/19 23:22 blood cells drop" Home Medications Home Medications Medication Instructions Recorded Confirmed Type levothyroxine 150 mcg PO QAM 03/20/18 02/04/19 History ursodiol 600 mg PO BID 03/20/18 02/04/19 History aspirin [Aspirin Low Dose] 81 mg PO DAILY 02/04/19 02/04/19 History celecoxib [Celebrex] 200 mg PO DAILY 02/04/19 02/04/19 History docusate sodium 100 mg PO BID 02/04/19 02/04/19 History naproxen sodium [Aleve] 440 mg PO BID PRN 02/04/19 02/04/19 History no.144-folic acid 400 mcg PO DAILY 02/04/19 02/04/19 History [] senna 8.6 mg PO DAILY PRN 02/04/19 02/04/19 History Past Med/Surg History Medical History (Updated 02/05/19 @ 10:53 by JAYDE Hebert) Autoimmune hemolytic anemia Hypothyroidism Kidney stones Primary biliary cirrhosis Sjogrens syndrome Surgical History (Updated 02/05/19 @ 10:47 by JAYDE Hebert) History of section X 2 History of cystoscopy WITH STENT History of lithotripsy History of total right hip replacement Family History Mother Family hx of colon cancer Social History Preferred Language: Syriac Communication Ability: Effective Supervisor Webbing Required: No Beliefs That Will Affect Care: None Current Living Situation: Spouse Other Information That Helps Us Care for You: No Feels Safe at Home: Yes Safety Concerns: Feels Safe At This Time Smoking Status: Former smoker Do You Dip or Chew Tobacco: No ; Second Hand Exposure: No ; Hx Alcohol Use: Yes Alcohol type: beer Hx Substance Use: No Review of Systems Review of Systems: As per HPI, all 10 systems reviewed, all other ROS negative Physical Exam Physical Exam: GENERAL: Slightly uncomfortable, pleasant, no respiratory distress SKIN: Pallor , warm HEENT: Bespectacled, pale palpebral conjunctivae, no ptosis, dry buccal mucosa, wheals noted on with mid face area NECK : Supple, no tenderness CHEST : CTA, no tenderness HEART : RRR, no obvious murmurs ABDOMEN: Some distention, nontender EXTREMITIES : wheals, minimal induration right thigh, well coaptated right thigh incisional wound, minimal RLE swelling, no overt LE tenderness, no other conspicuous deformities noted NEUROLOGIC : Coherent, no facial asymmetry, no other gross focality Results & Data Vital Signs (Past 12 Hours) Vital Signs Temp Pulse Pulse Resp BP BP Pulse Ox 02/05/19 04:21 36.7 C 77 18 130/51 L 95 02/05/19 04:07 93 H 02/05/19 03:32 94 H 16 112/62 97 02/05/19 02:16 94 H 18 94/61 L 96 02/05/19 00:30 98 H 18 127/54 L 96 02/04/19 23:22 97 H 18 123/78 96 02/04/19 22:43 98 02/04/19 21:54 37.8 C H 116 H 22 134/80 97 Laboratory Results Laboratory Results WBC 5.84 K/uL (4.8-10.8) 02/04/19 22:35 RBC 3.78 M/uL (4.2-5.4) L 02/04/19 22:35 Hgb 11.7 g/dL (12.0-16.0) L 02/04/19 22:35 Hct 33.8 % (37-47) L 02/04/19 22:35 MCV 89.4 fL (80-100) 02/04/19 22:35 MCH 31.0 pg (25-34) 02/04/19 22:35 MCHC 34.6 g/dL (32-36) 02/04/19 22:35 RDW Std Deviation 49.5 fL (36.4-46.3) H 02/04/19 22:35 RDW Coeff of Lakhwinder 15.2 % (11.5-14.5) H 02/04/19 22:35 Plt Count 216 K/uL (130-400) 02/04/19 22:35 MPV 8.8 fL (7.4-10.4) 02/04/19 22:35 Immature Gran % (Auto) 0.3 % 02/04/19 22:35 Neut % (Auto) 87.8 % 02/04/19 22:35 Lymph % (Auto) 7.0 % 02/04/19 22:35 Riley % (Auto) 3.8 % 02/04/19 22:35 Eos % (Auto) 0.9 % 02/04/19 22:35 Baso % (Auto) 0.2 % 02/04/19 22:35 Immature Gran # (Auto) 0.02 K/uL (0.00-0.02) 02/04/19 22:35 Neut # (Auto) 5.13 K/uL (1.4-6.5) 02/04/19 22:35 Lymph # (Auto) 0.41 K/uL (1.2-3.4) L 02/04/19 22:35 Riley # (Auto) 0.22 K/uL (0.11-0.59) 02/04/19 22:35 Eos # (Auto) 0.05 K/uL (0-0.5) 02/04/19 22:35 Baso # (Auto) 0.01 K/uL (0-0.2) 02/04/19 22:35 PT 10.0 Seconds (9.0-12.0) 02/04/19 22:35 INR 1.0 (0.9-1.1) 02/04/19 22:35 APTT 23.3 Seconds (21.0-31.0) 02/04/19 22:35 PTT Ratio 0.9 02/04/19 22:35 Sodium 138 mmol/L (136-145) 02/04/19 22:35 Potassium 3.7 mmol/L (3.5-5.1) 02/04/19 22:35 Chloride 110 mmol/L (98-107) H 02/04/19 22:35 Carbon Dioxide 19 mmol/L (21-32) L 02/04/19 22:35 Anion Gap 9.0 (3-11) 02/04/19 22:35 BUN 22 mg/dl (7-18) H 02/04/19 22:35 Creatinine 1.12 mg/dl (0.6-1.2) 02/04/19 22:35 Est Cr Clr Drug Dosing Not Reportable 02/04/19 22:35 Est GFR ( Amer) 60.5 02/04/19 22:35 Est GFR (Non-Af Amer) 52.2 02/04/19 22:35 BUN/Creatinine Ratio 19.8 (10-20) 02/04/19 22:35 Glucose 120 mg/dl (70-99) H 02/04/19 22:35 Lactate 1.0 mmol/L (0.4-2.0) 02/04/19 22:35 Calcium 9.4 mg/dl (8.5-10.1) 02/04/19 22:35 Magnesium 1.7 mg/dl (1.8-2.4) L 02/04/19 22:35 Total Bilirubin 1.1 mg/dl (0.2-1) H 02/04/19 22:35 AST 26 U/L (15-37) 02/04/19 22:35 ALT 15 U/L (12-78) 02/04/19 22:35 Alkaline Phosphatase 227 U/L (45-117) H 02/04/19 22:35 Total Protein 7.2 gm/dl (6.4-8.2) 02/04/19 22:35 Albumin 3.4 gm/dl (3.4-5.0) 02/04/19 22:35 Globulin 3.8 gm/dl (2.5-4.0) 02/04/19 22:35 Albumin/Globulin Ratio 0.9 (0.9-2) 02/04/19 22:35 TSH 1.900 uIu/ml (0.300-4.500) 02/04/19 22:35 Urine Color Dark Yellow 02/04/19 23:24 Urine Appearance Cloudy (Clear) A 02/04/19 23:24 Urine pH 6.5 (4.5-7.5) 02/04/19 23:24 Ur Specific [place] 1.021 (1.000-1.030) 02/04/19 23:24 Urine Protein 1+ (Negative) H 02/04/19 23:24 Urine Glucose (UA) Negative (Negative) 02/04/19 23:24 Urine Ketones Negative (Negative) 02/04/19 23:24 Urine Blood 2+ (Negative) H 02/04/19 23:24 Urine Nitrite Positive (Negative) A 02/04/19 23:24 Urine Bilirubin Negative (Negative) 02/04/19 23:24 Urine Urobilinogen Negative (Negative) 02/04/19 23:24 Ur Leukocyte Esterase 2+ (Negative) H 02/04/19 23:24 Urine WBC (Auto) >30 /hpf (0-5) H 02/04/19 23:24 Urine RBC (Auto) 5-10 /hpf (0-4) H 02/04/19 23:24 U Hyaline Cast (Auto) 5-10 /lpf (0-5) H 02/04/19 23:24 U Epithel Cells (Auto) 10-20 /lpf (0-5) H 02/04/19 23:24 Urine Bacteria (Auto) 4+ (Negative) H 02/04/19 23:24 Urine Crystals Not Reportable 02/04/19 23:24 Calcium Oxalate Crystal Present (None Prsent) A 02/04/19 23:24 Urine Yeast Not Reportable 02/04/19 23:[address] abdomen pelvis initial read: 4.6 mm stone lodged in the distal right ureter prior to UVJ with moderate upstream hydroureteronephrosis. Few additional nonobstructing stones within the kidneys bilaterally. No hydronephrosis on the left. Bladder is decompressed. Simple appearing fluid collection within the musculature along the anterior aspect of the right femoral neck representing seroma. Chest x-ray : Slight prominence of the pulmonary vasculature. Trace pleural fluid left base. No acute infiltrate.
--- NOTE | 2019-02-05 07:03 | CT Scan Report ---
CT abd pelvis wo con CLINICAL HISTORY: 63 years-old Female presenting with Right flank pain, history of hip replacement 2 weeks ago. TECHNIQUE: Multidetector CT of the abdomen and pelvis was performed without the use of intravenous co ntrast. IV contrast: None. One or more dose lowering techniques were used consistent with the princip les of ALARA (as low as reasonably achievable), including automatic exposure control, mA or kV adjust ment to individual patient size, and/or use of iterative reconstruction. COMPARISON: 08/29/2016. CT DOSE (mGy.cm): The estimated cumulative dose is 786.93 mGycm. FINDINGS: Natural Sciences Manager topogram: Right total hip arthroplasty. Lung bases: Normal heart size. Nodular pleural thickening on the left is new or increased from prior. Added density of the lung bases with mild interlobular septal thickening and patchy groundglass opac ity. Bandlike opacities representing scarring or atelectasis are also noted. Peripheral solid 6 mm no dule in the posterior basal left lower lobe, which may have been present on prior secured by surround ing atelectasis. Additional less discrete nodules may also be present. Liver: Normal morphology. Normal density. Biliary: No gross biliary ductal dilatation allowing for noncontrast technique. Normal gallbladder. Pancreas: Normal noncontrast appearance. Spleen: Normal noncontrast appearance. Adrenal glands: Normal noncontrast appearance. Kidneys and ureters: Bilateral nonobstructing nephrolithiasis. Additionally, there is moderate right pelvocaliectasis and distention of the right ureter to the level of an obstructing 5 mm calculus in t he distal right ureter a few centimeters proximal to the ureterovesical junction. Mild infiltration i n the right renal sinus. No left hydronephrosis. Left ureter nondistended. Bladder: Incompletely evaluated secondary to underdistention. No bladder calculus. Pelvic organs: Partially obscured due to streak artifact arising from the hip arthroplasty. Allowing for this, normal noncontrast appearance of the uterus. A small cyst is noted in the left ovary measur ing less than 1 cm. Bowel: Normal appendix. No bowel obstruction. Peritoneal cavity: No free fluid or intraperitoneal gas. Lymph nodes: No gross lymphadenopathy allowing for noncontrast technique. Vasculature: Atherosclerosis of the normal caliber abdominal aorta. Abdominal wall: Small fat-containing umbilical hernia. Musculoskeletal: Postsurgical changes of total right hip arthroplasty. An overlying incision and infi ltration of the subcutaneous fat in the lateral right thigh is expected postsurgical change. There is also a suspected seroma or evolving hematoma in the anterior musculature of the proximal right thigh . No hardware complication. Degenerative changes to a mild degree in the lower lumbar spine. IMPRESSION: 1. Obstructing 5 mm calculus in the distal right ureter a few centimeters proximal to the UVJ with r esultant moderate right hydroureteronephrosis. 2. Additional nonobstructing bilateral nephrolithiasis. 3. Postsurgical changes of total right hip arthroplasty. 4. Added density of the lung bases with vague patchy groundglass opacity, mild interlobular septal t hickening, apparent nodular pleural thickening on the left and a solid pulmonary nodule measuring 6 m m. Several of these findings require follow-up and are indeterminate. Follow-up per 2017 Fleischner S ociety criteria below with a 6 month follow-up time course favored. Some element of chronic lung dise ase may be present. Summary of Fleischner Society 2017 Recommendations (H Lanny et al. Guidelines for management of i ncidental pulmonary nodules detected on CT images: From the Fleischner Society 2017. Radiology 2017; 284: 228-243.) SOLID NODULES Single nodule; size < 6 mm * Low risk patients: No routine follow-up * High risk patients: Optional CT at 12 months Single nodule; size 6-8 mm * Low risk patients: CT at 6-12 months, then consider CT at 18-24 months * High risk patients: CT at 6-12 months, then at 18-24 months Single nodule; size > 8 mm * Either low or high risk patients: Considered CT at 3 months, PET/CT, or tissue sampling Multiple nodules; size < 6 mm * Low risk patients: No routine follow up * High risk patients: Optional CT at 12 months Multiple nodules; size 6-8 mm * Low risk patients: CT at 3-6 months, then consider CT at 18-24 months * High risk patients: CT at 3-6 months, then at 18-24 months Multiple nodules; size > 8 mm * Low risk patients: CT at 3-6 months, then consider at 18-24 months * High risk patients: CT at 3-6 months, then at 18-24 months SUBSOLID NODULES Single ground-glass nodule * Nodule size < 6 mm: No routine follow-up * Nodule size > or = 6 mm: CT at 6-12 months to confirm persistence, then CT every 2 years until 5 y ears Single part-solid nodule * Nodule size < 6 mm: No routine follow-up * Nodules size > or = 6 mm: CT at 3-6 months to confirm persistence. If unchanged and solid componen t remains < 6 mm, annual CT should be performed for 5 years Multiple nodules * Nodule size < 6 mm: CT at 3-6 months. If stable, consider CT at 2 and 4 years. * Nodules size > or = 6 mm: CT at 3-6 months. Subsequent management based on the most suspicious nod ule(s) NOTE: 1) These guidelines apply to incidental nodules. These guidelines do NOT apply to patients younger th an 35 years, immunocompromised patients, or patients with cancer. 2) Risk categories: * Low risk patients: Minimal or absent history of smoking and/or other known risk factors * High risk patients: History of smoking, exposure to other carcinogens, emphysema, fibrosis, upper lobe location, family history of lung cancer, etc. 3) If a nodule up to 8 mm is partly solid or is ground glass, further follow-up is required after 24 months to exclude possible slow growing adenocarcinoma. Electronically signed by: Frank Sterling M.D. 02/05/2019 7:02 AM
[2019-02-05 07:44] LABS: Eosinophils # (auto) 0.09 K/uL (0-0.5); Eosinophils % (auto) 2.1 %; Hematocrit (blood only) 29.2 % (37-47); Hemoglobin 9.8 g/dL (12.0-16.0); Immature Granulocytes # (auto) 0.01 K/uL (0.00-0.02); Immature Granulocytes % (auto) 0.2 %; Lymphocytes # (auto) 0.46 K/uL (1.2-3.4); Mean Corpuscular Hemoglobin 30.2 pg (25-34); Mean Corpuscular Hgb Conc 33.6 g/dL (32-36); Mean Corpuscular Volume 89.8 fL (80-100); Mean Platelet Volume 9.2 fL (7.4-10.4); Monocytes # (auto) 0.12 K/uL (0.11-0.59); Monocytes % (auto) 2.9 %; Neutrophils # (auto) 3.51 K/uL (1.4-6.5); Neutrophils % (auto) 83.8 %; Platelet Count 163 K/uL (130-400); RDW Coefficient of Variation 15.3 % (11.5-14.5); RDW Standard Deviation 50.3 fL (36.4-46.3); Red Blood Count 3.25 M/uL (4.2-5.4); White Blood Count 4.19 K/uL (4.8-10.8)
--- NOTE | 2019-02-05 07:52 | Urology Consultation ---
Date of Consultation February 05, 2019 Assessment & Plan (1) Calculus, ureteral: 63yo F with 5mm distal right ureteral stone, moderate hydro, suspected UTI Continue broad spectrum abx and IVFs while awaiting UC&S Pt is subjectively and clinically improving, does not require immediate surgical intervention today. Will allow diet today then NPO after midnight. Continue to strain all urine. KUB now and in AM to track progress. Pt is interested in ESWL, however with positive UA we may need to await final cultures/appropriate abx coverage prior to stone treatment. She understands. Please contact our service urgently if patient develops fever >101F, intractable pain or nausea, as this will necessitate urgent surgical intervention. Thank you for the consultation and we will continue to monitor closely with primary service. discussed options, pt clinically improving with abx and ivf fluids Strain all urine History of Present Illness Reason for Consultation: stone Requesting Physician: Dr. Dudley Attending Physician: Henok Dudley, History of Present Illness 63yo F admitted through [facility] ED after 1 day of right flank/ groin pain and suprapubic pressure. She was feverish overnight, prompting evaluation. Hx of stones, established with Dr. Valentine. CT imaging reveals 5mm distal right ureteral stone, moderate hydronephrosis. UA is nitrite positive. She is s/p R hip placement in [place] 2 weeks ago, healing well up until this point. Appears she had a reaction to cephalosporin, all over drug rash is pruritic. Pain is controlled with IV pain control. Feeling subjectively much better this AM, she is hungry. No n/v/f/c. Chills last night. Some suprapubic pressure, mild dysuria. No hematuria. Tmax 37.8C last night, trending down. VSS currently. C Pt states she has always required lithotripsy, never passed stone spontaneously. Allergies Allergy/AdvReac Type Severity Reaction Status Date / Time Cephalosporins Allergy Mild Rash Verified 02/05/19 00:18 latex Allergy Unknown gets rash Verified 02/04/19 23:22 Flu Virus Vaccine Allergy Unknown "my red Uncoded 02/04/19 23:22 blood cells drop" Home Medications Home Medications Medication Instructions Recorded Confirmed Type levothyroxine 150 mcg PO QAM 03/20/18 02/04/19 History ursodiol 600 mg PO BID 03/20/18 02/04/19 History aspirin [Aspirin Low Dose] 81 mg PO DAILY 02/04/19 02/04/19 History celecoxib [Celebrex] 200 mg PO DAILY 02/04/19 02/04/19 History docusate sodium 100 mg PO BID 02/04/19 02/04/19 History naproxen sodium [Aleve] 440 mg PO BID PRN 02/04/19 02/04/19 History no.144-folic acid 400 mcg PO DAILY 02/04/19 02/04/19 History [] senna 8.6 mg PO DAILY PRN 02/04/19 02/04/19 History Patient History Medical History Anemia AUTOIMMUNE HEMOLYTIC ANEMIA-F/U DR COX Chronic liver disease PRIMARY BILIARY CIRRHOSIS-F/U DR CHARLTON Hypothyroidism Kidney stones Surgical History History of section X 2 History of colonoscopy History of cystoscopy WITH STENT History of lithotripsy Family History Mother Family hx of colon cancer Social History Preferred Language: Luxembourgish Communication Ability: Effective 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 Required: No Beliefs That Will Affect Care: None Current Living Situation: Spouse Other Information That Helps Us Care for You: No Feels Safe at Home: Yes Safety Concerns: Feels Safe At This Time Smoking Status: Former smoker Do You Dip or Chew Tobacco: No ; Second Hand Exposure: No ; Hx Alcohol Use: Yes Alcohol type: beer Hx Substance Use: No Review of Systems Review of Systems: All systems reviewed & are unremarkable except as noted in HPI & below Physical Exam Constitutional: no acute distress and not ill appearing Eyes: no nystagmus ENMT: Ears: no hearing impairment Neck: trachea midline Respiratory: no respiratory distress and no cough Cardiovascular: Vessels: no JVD Chest (Breasts): Chest: normal inspection of chest Gastrointestinal (Abdomen): Inspection/Auscultation: abdomen not distended and no abdominal edema Percussion/Palpation: + abdomen tender (right abdomen) and abdomen soft Musculoskeletal: Head/Neck/Chest: normocephalic and head atraumatic Skin: no rashes, warm and dry right hip incision well healed all over raised red rash noted to cheeks and legs prodominetly Neurologic: awake; not confused and not obtunded Psychiatric: Orientation: alert and oriented x 3 Eye Contact: good eye contact Affect: no depressed affect Lymphatic: no lymphadenopathy and no lymphedema Results & Data Vital Signs (Past 12 Hours) Vital Signs Temp Pulse Pulse Resp BP BP Pulse Ox 02/05/19 07:23 37.0 C 85 16 103/66 97 02/05/19 07:00 88 02/05/19 04:21 36.7 C 77 18 130/51 L 95 02/05/19 04:07 93 H 02/05/19 03:32 94 H 16 112/62 97 02/05/19 02:16 94 H 18 94/61 L 96 02/05/19 00:30 98 H 18 127/54 L 96 02/04/19 23:22 97 H 18 123/78 96 02/04/19 22:43 98 02/04/19 21:54 37.8 C H 116 H 22 134/80 97 PG Care Time/CCT Total # of Minutes Spent Total Time Spent with Patient: Total time spent is greater than 50% in coordination of care (as documented) at patient's floor/unit and/or counseling patient:
[2019-02-05 08:23] LABS: BUN Creatinine Ratio 18.2 (10-20); Calcium 8.6 mg/dl (8.5-10.1); Creatinine Clr Calc Pharmacy 50.6 ml/min; Est GFR (African American) 71.2; Est GFR (Non-African American) 61.4; Magnesium 2.1 mg/dl (1.8-2.4); Potassium 4.1 mmol/L (3.5-5.1)
[2019-02-05] MEDS: CIPROFLOXACIN 400 MG/200 ML BAG IV SCH ×2 (08:45→20:19)
[2019-02-05] MEDS: ASPIRIN 81 MG ECTAB PO SCH (08:55)
[2019-02-05] MEDS: PRENATAL VITAMIN 1 TAB PO SCH (08:55)
[2019-02-05] MEDS: URSODIOL 300 MG CAP PO SCH ×2 (08:55→20:18)
[2019-02-05] MEDS: DOCUSATE SODIUM 100 MG CAP PO SCH ×2 (08:55→20:18)
[2019-02-05] MEDS ORDERED: DiphenhydrAMINE HCL 50 MG/ML VIAL IV PRN (09:12)
--- NOTE | 2019-02-05 09:52 | XRay Report ---
KUB CLINICAL HISTORY: right ureteral stone visibility COMPARISON STUDY: CT of the abdomen and pelvis February 04, 2019. KUB December 27, 2017. FINDINGS: A 5 mm distal right ureteral calculus is unchanged in position since CT of February 04 9. Additional pelvic calcifications reflects phleboliths. A few left renal calculi measure up to 4 mm . Right renal calculi shown on prior CT are obscured by stool on this exam. There is no evidence for a bowel obstruction. Right hip arthroplasty is noted. IMPRESSION: 1. No change in position of a 5 mm distal right ureteral calculus. 2. Left-sided nephrolithiasis. Right renal calculi shown on prior CT obscured by stool on this study. Electronically signed by: Maxwell Thompson M.D. 02/05/2019 9:50 AM
--- NOTE | 2019-02-05 10:55 | Hospitalist Progress Note ---
Date of Service February 05, 2019 Assessment & Plan (1) UTI (urinary tract infection): (2) Calculus, ureteral: -Hospital day #2 -CT ABD/pelvis showing 5 mm obstructing distal right ureteral stone with moderate hydroureteronephrosis -UA also suggests UTI -Does not appear septic -Urology consulted, not planning intervention today -Continue empiric Cipro -Follow urine culture (3) Drug rash: -Possibly from recent use of cefadroxil or Celebrex during postop phase from right OSCAR -Discontinue cefadroxil and Celebrex -PRN Benadryl -will start short course of prednisone (4) Autoimmune hemolytic anemia: -Baseline hemoglobin ~ 11-12 -Hgb 11.7 -> 9.8 today (likely some dilutional component from IVF) -Continue to monitor (5) Primary biliary cirrhosis: -Stable -Continue ursodiol (6) Hypothyroidism: -Continue levothyroxine (7) DVT prophylaxis: -SCDs due to possible invasive procedure Supervising Physician Co-Signing Physician Notes I saw this patient with the Nurse Practitioner, I participated in the history, physical, review of systems, and physical exam. I reviewed the medications with the patient and the Nurse Practitioner and helped reconcile the medications. I helped take a detailed family and social history as well. I formulated the assessment and plan personally with the Nurse Practitioner went over it with the patient. ROS-No Headache, No Visual Changes, No Nausea, No Vomiting, No Fever, No Chills, No Neck Pain or Stiffness, No Chest Pain, No Palpitations, No SOB, No MATHIS, No Cough, No Sputum, No Wheezing, No Abdominal Pain, No Diarrhea, No Hematemesis, No Hemoptysis, No Unexpected Weight Loss, No Flank pain, No Melena, No Hematochezia, No Frequency, No Urgency, No Burning, No Hematuria, No Rashes, No Diaphoresis. Appetite is Normal Physical Exam Gen-AAO x 3, NAD, Afebrile, +Rash Head-NCAT, EOMI, PERRLA, Anicteric Sclera, No Posterior Pharyngeal Erythema Neck-Supple, No JVD, No Thyromegaly, No Masses, No LAD, No Bruits Lungs-Clear to Auscultation Bilaterally, No Rales, No Rhonchi, No Wheezing, No Crepitus Chest-No S4, +S1, +S2, No S3, No Murmurs, No Rubs, No Gallops, No Ectopy Abdomen-Soft, Bowel Sounds Present, Non Tender, Non Distended, No Hepatomegaly, No Splenomegaly, No Palpable Masses, No Rebound, No Rigidity, No Guarding Musculoskeletal-Full Range of Motion Bilaterally, +R CVAT Extremities-No Cyanosis, No Clubbing, No Edema Nuero-Cranial Nerves II-XII grossly intact, Motor WNL, DTRs WNL, Strength WNL, Non Focal Psych-Normal Mood Subjective Patient seen and examined. Reports feeling improved this morning. Back pain improving. No further nausea. Physical Exam Constitutional: no acute distress Resting in bed Respiratory: normal respiratory effort, lungs clear to auscultation Cardiovascular: Rate/Rhythm: regular rate and regular rhythm Vessels: normal peripheral pulses Extremities: no edema Musculoskeletal: Right anterior hip incision noted, no surrounding erythema or drainage Skin: + rash (Diffuse maculopapular rash noted) Psychiatric: Orientation: alert and oriented x 3 Results & Data Vital Signs (Past 12 Hours) Vital Signs Temp Pulse Pulse Resp BP BP Pulse Ox 02/05/19 07:23 37.0 C 85 16 103/66 97 02/05/19 07:00 88 02/05/19 04:21 36.7 C 77 18 130/51 L 95 02/05/19 04:07 93 H 02/05/19 03:32 94 H 16 112/62 97 02/05/19 02:16 94 H 18 94/61 L 96 02/05/19 00:30 98 H 18 127/54 L 96 02/04/19 23:22 97 H 18 123/78 96 Laboratory Results Short CBC 02/04/19 02/05/19 Range/Units 22:35 07:29 WBC 5.84 4.19 L (4.8-10.8) K/uL Hgb 11.7 L 9.8 L (12.0-16.0) g/dL Hct 33.8 L 29.2 L (37-47) % Plt Count 216 163 (130-400) K/uL [facility] 02/04/19 02/05/19 22:35 07:29 Sodium 138 142 Potassium 3.7 4.1 Chloride 110 H 115 H Carbon Dioxide 19 L 22 BUN 22 H 18 Creatinine 1.12 0.98 Glucose 120 H 90 Calcium 9.4 8.6 Liver Function 02/04/19 Range/Units 22:35 Total Bilirubin 1.1 H (0.2-1) mg/dl AST 26 (15-37) U/L ALT 15 (12-78) U/L Alkaline Phosphatase 227 H (45-117) U/L Albumin 3.4 (3.4-5.0) gm/dl Urine 02/04/19 Range/Units 23:24 Urine Color Dark Yellow Urine Appearance Cloudy A (Clear) Urine pH 6.5 (4.5-7.5) Ur Specific [place] 1.021 (1.000-1.030) Urine Protein 1+ H (Negative) Urine Glucose (UA) Negative (Negative)
[2019-02-05] MEDS: predniSONE 20 MG TAB PO SCH (11:21)
[2019-02-05] MEDS: ACETAMINOPHEN 325 MG TAB PO PRN ×3 (11:28→23:43)
[2019-02-06] MEDS: MoRPHine SULFATE 2 MG/ML CARP IV PRN ×2 (04:34→08:29)
[2019-02-06] MEDS: LEVOTHYROXINE SODIUM 150 MCG TABLET PO SCH (06:02)
[2019-02-06] MEDS: LACTATED RINGER'S 1,000 ML IV SCH ×3 (06:08→21:55)
--- NOTE | 2019-02-06 08:16 | XRay Report ---
XR KUB/Abdomen 1 view CLINICAL HISTORY: 63 years-old Female presenting with right ureteral stone progress. TECHNIQUE: Single supine view of the abdomen was obtained. COMPARISON: 02/05/2019 at 8:[address] from 02/04/2019. FINDINGS: Moderate stool burden throughout the colon. Mild gaseous distention of colon. Nonobstructive bowel ga s pattern. No gross pneumoperitoneum align for supine technique. The significant stool burden degrades evaluation for renal calculi. Bilateral nephrolithiasis evident on recent CT is not well appreciated. The previously noted 5 mm calculus in the distal right ureter is essentially unchanged in position. Additional scattered pelvic calcifications correspond to phlebo liths. Total right hip arthroplasty. Lung bases clear. IMPRESSION: 1. Unchanged position of the distal right ureteral calculus. 2. Bilateral nephrolithiasis best appreciated on recent CT due to the stool burden. 3. Constipation. Electronically signed by: Frank Sterling M.D. 02/06/2019 8:15 AM
[2019-02-06] MEDS: CIPROFLOXACIN 400 MG/200 ML BAG IV SCH ×2 (08:23→21:54)
--- NOTE | 2019-02-06 08:57 | Urology Progress Note ---
Date of Service February 06, 2019 Assessment & Plan (1) Calculus, ureteral: 63yo F with 5mm distal right ureteral stone, moderate hydro, suspected UTI Continue broad spectrum abx and IVFs while awaiting UC&S Pain control continues to be an issue. Wishes to pursue procedure today. Findings reviewed with Dr. Menjivar. Given her persistent renal colic in the context of an obstructing right ureteral stone, will proceed with OR for cysto, Right retrograde pyelogram and Right stent placement. Risks and benefits to be reviewed with patient by Dr. Menjivar. OR notified. Preoperative CXR done and EKG ordered. On IV ciprofloxacin q12h inpatient for abx coverage. Strain all urine ATTENDING: Plan for cystoscopy and stent. Subjective Continued pain control issues overnight Some nausea but no emesis VSS, afebrile Awaiting UC&S Review of Systems Review of Systems: All systems reviewed & are unremarkable except as noted in HPI & below Physical Exam Physical Exam: A&Ox3 RRR abd soft rash persistent to bilateral cheeks Results & Data Vital Signs (Past 12 Hours) Vital Signs Temp Pulse Pulse Resp BP BP Pulse Ox 02/06/19 08:01 36.7 C 69 20 108/64 97 02/06/19 07:00 70 02/06/19 02:48 36.5 C 64 19 111/67 96 02/05/19 23:05 36.8 C 78 19 111/72 97 PG Care Time/CCT Total # of Minutes Spent Total Time Spent with Patient: Total time spent is greater than 50% in coordination of care (as documented) at patient's floor/unit and/or counseling patient:
[2019-02-06 09:16] LABS: Hematocrit (blood only) 26.7 % (37-47); Mean Corpuscular Hemoglobin 30.4 pg (25-34); Mean Corpuscular Hgb Conc 33.7 g/dL (32-36); Mean Corpuscular Volume 90.2 fL (80-100); Mean Platelet Volume 9.3 fL (7.4-10.4); Platelet Count 163 K/uL (130-400); RDW Coefficient of Variation 15.1 % (11.5-14.5); RDW Standard Deviation 49.9 fL (36.4-46.3); Red Blood Count 2.96 M/uL (4.2-5.4); White Blood Count 5.94 K/uL (4.8-10.8)
--- NOTE | 2019-02-06 09:19 | Hospitalist Progress Note ---
Date of Service February 06, 2019 Assessment & Plan (1) UTI (urinary tract infection): (2) Calculus, ureteral: -Hospital day #3 -CT ABD/pelvis showing 5 mm obstructing distal right ureteral stone with moderate hydroureteronephrosis -UA also suggests UTI -Does not appear septic -Urology consulted, planning for cystoscopy today -Urine culture suggesting contamination; blood cultures no growth -Continue empiric Cipro (3) Drug rash: -Improving -Possibly from recent use of cefadroxil or Celebrex during postop phase from right OSCAR -Discontinue cefadroxil and Celebrex -PRN Benadryl -Prednisone 40 mg x 5 days (day #2) (4) Autoimmune hemolytic anemia: -Baseline hemoglobin ~ 11-12 -Hgb 11.7 -> 9.8 -> 9.0 today (likely some dilutional component from IVF) -Continue to monitor (5) Primary biliary cirrhosis: -Stable -Continue ursodiol (6) Hypothyroidism: -Continue levothyroxine (7) DVT prophylaxis: -SCDs due to possible invasive procedure Supervising Physician Co-Signing Physician Notes I saw this patient with the Nurse Practitioner, I participated in the history, physical, review of systems, and physical exam. I reviewed the medications with the patient and the Nurse Practitioner and helped reconcile the medications. I helped take a detailed family and social history as well. I formulated the assessment and plan personally with the Nurse Practitioner went over it with the patient. ROS-No Headache, No Visual Changes, No Nausea, No Vomiting, No Fever, No Chills, No Neck Pain or Stiffness, No Chest Pain, No Palpitations, No SOB, No MATHIS, No Cough, No Sputum, No Wheezing, No Abdominal Pain, No Diarrhea, No Hematemesis, No Hemoptysis, No Unexpected Weight Loss, No Flank pain, No Melena, No Hematochezia, No Frequency, No Urgency, No Burning, No Hematuria, No Rashes, No Diaphoresis. Appetite is Normal, c/o of rash and R CVAT Physical Exam Gen-AAO x 3, NAD, Afebrile, Facial, Trunk, Hand and Back rash mildly better Head-NCAT, EOMI, PERRLA, Anicteric Sclera, No Posterior Pharyngeal Erythema Neck-Supple, No JVD, No Thyromegaly, No Masses, No LAD, No Bruits Lungs-Clear to Auscultation Bilaterally, No Rales, No Rhonchi, No Wheezing, No Crepitus Chest-No S4, +S1, +S2, No S3, No Murmurs, No Rubs, No Gallops, No Ectopy Abdomen-Soft, Bowel Sounds Present, Non Tender, Non Distended, No Hepatomegaly, No Splenomegaly, No Palpable Masses, No Rebound, No Rigidity, No Guarding Musculoskeletal-Full Range of Motion Bilaterally, R CVAT Extremities-No Cyanosis, No Clubbing, No Edema Nuero-Cranial Nerves II-XII grossly intact, Motor WNL, DTRs WNL, Strength WNL, Non Focal Psych-Normal Mood Subjective Patient seen and examined. Reports worsening of flank pain and nausea this morning. Denies vomiting and abdominal pain. No chest pain or shortness of breath. Denies lightheadedness and dizziness. Remains afebrile. Physical Exam Constitutional: no acute distress Resting in bed Respiratory: normal respiratory effort, lungs clear to auscultation Cardiovascular: Rate/Rhythm: regular rate and regular rhythm Vessels: normal peripheral pulses Extremities: no edema Gastrointestinal (Abdomen): Inspection/Auscultation: normal bowel sounds Percussion/Palpation: abdomen soft; abdomen nontender Skin: Improving maculopapular rash Psychiatric: Orientation: alert and oriented x 3 Results & Data Vital Signs (Past 12 Hours) Vital Signs Temp Pulse Pulse Resp BP BP Pulse Ox 02/06/19 08:01 36.7 C 69 20 108/64 97 02/06/19 07:00 70 02/06/19 02:48 36.5 C 64 19 111/67 96 02/05/19 23:05 36.8 C 78 19 111/72 97 Laboratory Results Short CBC 02/06/19 Range/Units 09:01 WBC 5.94 (4.8-10.8) K/uL Hgb 9.0 L (12.0-16.0) g/dL Hct 26.7 L (37-47) % Plt Count 163 (130-400) K/uL
[2019-02-06] MEDS: URSODIOL 300 MG CAP PO SCH ×2 (09:28→21:54)
[2019-02-06] MEDS: DOCUSATE SODIUM 100 MG CAP PO SCH ×2 (09:28→21:54)
[2019-02-06] MEDS: ASPIRIN 81 MG ECTAB PO SCH (09:29)
[2019-02-06 09:44] LABS: BUN Creatinine Ratio 18.8 (10-20); Calcium 9.2 mg/dl (8.5-10.1); Creatinine Clr Calc Pharmacy 50.7 ml/min; Est GFR (African American) 70.3; Est GFR (Non-African American) 60.6; Potassium 3.5 mmol/L (3.5-5.1)
--- NOTE | 2019-02-06 13:58 | Anesthesiology Consultation ---
Date of Service February 06, 2019 Assessment & Plan (1) Encounter for pre-operative examination: Chart Review Chart Review: Acceptable Risk for Surgery Consults Requested none ASA ASA3 Proposed Anesthesia Anesthesia Type: MAC Risk / Benefits Reviewed With: PT / POA / Parent / Guardian, Accepts Plan and Informed Consent Obtained History Surgery Operation Date: 02/06/19 13:30 Proposed Procedures p Cystoscopy, Right Retrograde and Stent Placement - Simón Menjivar, DO Height/Weight Height: 5 ft 2 in Weight: 62.8 kg Allergies Allergy/AdvReac Type Severity Reaction Status Date / Time Cephalosporins Allergy Mild Rash Verified 02/05/19 00:18 latex Allergy Unknown gets rash Verified 02/04/19 23:22 Flu Virus Vaccine Allergy Unknown "my red Uncoded 02/04/19 23:22 blood cells drop" Medications Home Medications Medication Instructions Recorded Confirmed Last Taken levothyroxine 150 mcg PO QAM 03/20/18 02/04/19 02/04/19 ursodiol 600 mg PO BID 03/20/18 02/04/19 02/04/19 aspirin [Aspirin Low Dose] 81 mg PO DAILY 02/04/19 02/04/19 02/04/19 celecoxib [Celebrex] 200 mg PO DAILY 02/04/19 02/04/19 02/04/19 docusate sodium 100 mg PO BID 02/04/19 02/04/19 02/04/19 naproxen sodium [Aleve] 440 mg PO BID PRN 02/04/19 02/04/19 02/04/19 no.144-folic acid 400 mcg PO DAILY 02/04/19 02/04/19 02/04/19 [] senna 8.6 mg PO DAILY PRN 02/04/19 02/04/19 02/04/19 Active Medications Generic Name Dose Route Start Last Admin Trade Name Freq PRN Reason Stop Dose Admin Acetaminophen 650 mg 02/05/19 04:04 02/05/19 23:43 Tylenol PO 03/07/19 04:03 650 mg Q4H PRN Administration Pain or Fever Aspirin 81 mg 02/05/19 09:00 02/06/19 09:29 Ecotrin Ectab PO 03/07/19 08:59 Not Given DAILY BRANDIE Diphenhydramine HCl 25 mg 02/05/19 09:12 02/05/19 09:30 Benadryl IV 03/07/19 09:11 25 mg Q6H PRN Administration Rash Docusate Sodium 100 mg 02/05/19 09:00 02/06/19 09:28 Colace PO 03/07/19 08:59 Not Given BID BRANDIE Lactated Ringer's 1,000 mls @ 100 mls/hr 02/05/19 00:15 02/06/19 06:08 Lr IV 03/07/19 00:14 100 mls/hr .Q10H BRANDIE Administration Promethazine HCl 12.5 mg/ 50.5 mls @ 202 mls/hr 02/05/19 04:04 02/06/19 08:32 Sodium Chloride IV 03/07/19 04:03 Infused Q6H PRN Infusion Nausea And Vomiting Ciprofloxacin 400 mg in 200 mls @ 100 mls/hr 02/05/19 09:00 02/06/19 10:25 Cipro IV 02/15/19 08:59 Infused Q12H BRANDIE Infusion Levothyroxine Sodium 150 mcg 02/05/19 06:30 02/06/19 06:02 Synthroid PO 03/07/19 06:29 Not Given DAILYBB BRANDIE Morphine Sulfate 2 mg 02/05/19 04:19 02/06/19 08:29 Morphine Sulfate IV 02/19/19 04:18 2 mg Q4H PRN Administration Pain Prednisone 40 mg 02/05/19 10:15 02/05/19 11:21 Prednisone PO 02/09/19 09:01 40 mg DAILY BRANDIE Administration Prenat Multivit/E Commerce Web Developer/Iron/Folic Ac 1 tab 02/05/19 09:00 02/05/19 08:55 Vitamin PO 03/07/19 08:59 1 tab DAILY BRANDIE Administration Ursodiol 600 mg 02/05/19 09:00 02/06/19 09:28 Actigall PO 03/07/19 08:59 Not Given BID BRANDIE NPO Date Last Intake of Fluids: 02/06/19 Time Last Intake of Fluids: 12:00 Last Intake of Fluids Comment: ice chips Date Last Intake of Solids: 02/04/19 Time Last Intake of Solids: 08:00 Past Medical History Medical History Autoimmune hemolytic anemia Hypothyroidism Kidney stones Primary biliary cirrhosis Sjogrens syndrome Exercise / Class Metabolic Activity II 4-5 Yardwork/Stairs/Walk up hill Past Family History Family History Mother Family hx of colon cancer Past Surgical History Surgical History History of section X 2 History of cystoscopy WITH STENT History of lithotripsy History of total right hip replacement Past Anesthesia History No Hx of Anesthesia Complications and No Family Hx of Anesthesia Complications History of PONV No Hx of PONV and No Hx of Motion Sickness Social History Smoking Status: Former smoker Do You Dip or Chew Tobacco: No Hx Alcohol Use: Yes Alcohol type: beer alcohol intake frequency: a few times a month Hx Substance Use: No substance use type: does not use Physical Exam Vital Signs Last Vital Signs Temp 98.2 F 02/06/19 13:46 Pulse 80 02/06/19 13:46 Resp 20 02/06/19 13:46 BP 103/69 02/06/19 13:46 Pulse Ox 95 02/06/19 13:46 ENMT Mouth: no dentition abnormality Thyromental Distance: > or= 3.5 Finger Breadths Mallampati Class: II Neck normal visual inspection Respiratory normal respiratory effort Auscultation: lungs clear to auscultation bilaterally Cardiovascular Rate/Rhythm: regular rate and regular rhythm Testing Laboratory Results 02/06/19 09:01 02/06/19 09:01 PT 10.0 Seconds (9.0-12.0) 02/04/19 22:35 INR 1.0 (0.9-1.1) 02/04/19 22:35 APTT 23.3 Seconds (21.0-31.0) 02/04/19 22:35 Urine Color Dark Yellow 02/04/19 23:24 Urine Appearance Cloudy (Clear) A 02/04/19 23:24 Urine pH 6.5 (4.5-7.5) 02/04/19 23:24 Ur Specific [place] 1.021 (1.000-1.030) 02/04/19 23:24 Urine Protein 1+ (Negative) H 02/04/19 23:24 Urine Glucose (UA) Negative (Negative) 02/04/19 23:24 Urine Ketones Negative (Negative) 02/04/19 23:24 Urine Nitrite Positive (Negative) A 02/04/19 23:24 Ur Leukocyte Esterase 2+ (Negative) H 02/04/19 23:24 Urine WBC (Auto) >30 /hpf (0-5) H 02/04/19 23:24 Urine RBC (Auto) 5-10 /hpf (0-4) H 02/04/19 23:24 U Hyaline Cast (Auto) 5-10 /lpf (0-5) H 02/04/19 23:24 U Epithel Cells (Auto) 10-20 /lpf (0-5) H 02/04/19 23:24 Urine Bacteria (Auto) 4+ (Negative) H 02/04/19 23:24 02/04/19 23:24 Urine Culture - Final Urine,Clean Catch Three types of organisms present, all high counts. Repeat collection recommended. No further identifications or sensitivities to follow. 02/04/19 22:35 Aerobic Blood Culture - Preliminary Blood No growth in Aerobic bottle after 24 hours. Anaerobic Blood Culture - Preliminary No growth in Anaerobic bottle after 24 hours. 02/04/19 22:28 Aerobic Blood Culture - Preliminary Blood No growth in Aerobic bottle after 24 hours. Anaerobic Blood Culture - Preliminary No growth in Anaerobic bottle after 24 hours. Electrocardiogram Date: 02/06/19 Normal sinus rhythm, rate 68 bpm Anterior infarct (cited on or before 06-FEB-2019) Abnormal ECG When compared with ECG of 29-AUG-2016 12:17, Vent. rate has decreased BY 51 BPM Chest X-Ray Date: 02/04/19 IMPRESSION: Slight prominence of the pulmonary vasculature. Trace pleural fluid left base. No acute infiltrate.
[2019-02-06] MEDS ORDERED: PROPOFOL IV EMULSION 10 MG/ML 20 ML VIAL IV ONE (14:00)
[2019-02-06] MEDS ORDERED: MIDAZOLAM HCL 1 MG/ML 2ML VIAL ONE (14:00)
[2019-02-06] MEDS ORDERED: fentaNYL citrate 100 MCG/2 ML VIAL ONE (14:00)
[2019-02-06] MEDS ORDERED: LIDOCAINE HCL 2% 2 ML VIAL/AMP(20MG/ML) INFIL ONE (14:00)
[2019-02-06] MEDS ORDERED: IOTHALAMATE MEGLUMINE II 17.2% 250 ML VIAL ONE (14:02)
[2019-02-06] MEDS ORDERED: ATROPINE SULFATE 0.1 MG/ML 10ML SYR IV PRN (14:03)
[2019-02-06] MEDS ORDERED: fentaNYL citrate 100 MCG/2 ML VIAL IV PRN (14:03)
[2019-02-06] MEDS ORDERED: ePHEDrine sulfate 50 MG/ML AMP IV PRN (14:03)
[2019-02-06] MEDS ORDERED: ONDANSETRON INJ 2 MG/ML 2 ML VIAL IV PRN (14:03)
--- NOTE | 2019-02-06 14:29 | Operative Report ---
PG Post Operative Report Pre & Post Diagnosis Right ureteral stone Same Operation Date: 02/06/19 13:30 <No data on this case meets the specified criteria> I identified the patient and participated in the time-out.: Yes Procedure Cystoscopy with right retrograde pyelogram and stent placement. Operation Date: 02/06/19 13:30 <No data on this case meets the specified criteria> Surgeon Simón Menjivar, II, DO Hydraulics Teacher None Estimated Blood Loss 1 Findings Consistent with Post-Op Diagnosis Stent placed in good position. Specimens None Drains 6 Fr Multilength Anesthesia Type MAC Complications none Disposition Disposition: Recovery Room Indications Patient with obstruction. Risks and benefits discussed at length. Description of Procedure Patient was consented and brought back to the operating room. Patient was placed under anesthesia in the supine position and moved to the dorsal lithotomy position. Patient was prepped and draped in the regular sterile fashion. A time out was completed. A 30degree Cystoscope was placed into the bladder and the entire bladder was examined. The UO's were identified. The UO was cannulized with a catheter and a retrograde pyelogram was completed. A wire was then placed. With the wire in place, a 6 Fr Double J stent was placed. It was confirmed with fluoroscopy. With the stent in place, the bladder was emptied. The scope was removed. The patient was cleaned, aroused from anesthesia, and transferred to the pacu in stable condition having tolerated the procedure well with no complications. I was present and participated in all aspects of the procedure. The patient will be monitored in the PACU until transferred. I attest to the content of the Intraoperative Record and any orders documented therein. Any exceptions are noted below.
--- NOTE | 2019-02-06 14:56 | Fluoroscopy Report ---
FL retrograde includes kub CLINICAL HISTORY: 63 years-old Female presenting with RT RETROGRADE LASER STENT. TECHNIQUE: 2 fluoroscopic image(s) recorded as part of an intraoperative procedure. COMPARISON: 02/06/[address] from 02/04/2019. FINDINGS/IMPRESSION: There has been interval placement of a right ureteral stent. The right renal collecting system is opa cified with contrast. There is moderate dilatation with blunting of the calyces consistent with hydro nephrosis. No demonstrable calculus along the course of the stent. Please see surgical report for further details. Fluoroscopy dosage (mGy): 3.46. Fluoroscopy time: 18.8 seconds. Number or time of high level fluoroscopy (HLF), digital spot, or digital subtraction images: 0. Electronically signed by: Frank Sterling M.D. 02/06/2019 2:55 PM
[2019-02-06] MEDS: predniSONE 20 MG TAB PO SCH (15:42)
[2019-02-06] MEDS: PRENATAL VITAMIN 1 TAB PO SCH (15:42)
[2019-02-06] MEDS: TAMSULOSIN HCL 0.4 MG CAP PO SCH (15:43)
[2019-02-07] MEDS: LEVOTHYROXINE SODIUM 150 MCG TABLET PO SCH (05:56)
[2019-02-07 07:30] LABS: Hematocrit (blood only) 27.6 % (37-47); Hemoglobin 9.1 g/dL (12.0-16.0); Mean Corpuscular Hemoglobin 30.2 pg (25-34); Mean Corpuscular Volume 91.7 fL (80-100); Mean Platelet Volume 9.1 fL (7.4-10.4); Platelet Count 190 K/uL (130-400); RDW Coefficient of Variation 15.2 % (11.5-14.5); RDW Standard Deviation 51.4 fL (36.4-46.3); Red Blood Count 3.01 M/uL (4.2-5.4); White Blood Count 3.15 K/uL (4.8-10.8)
[2019-02-07 07:53] LABS: BUN Creatinine Ratio 16.9 (10-20); Calcium 9.3 mg/dl (8.5-10.1); Creatinine Clr Calc Pharmacy 52.7 ml/min; Est GFR (African American) 72.9; Est GFR (Non-African American) 62.9; Potassium 3.9 mmol/L (3.5-5.1)
--- NOTE | 2019-02-07 08:01 | Anesthesiology Progress Note ---
Date of Service February 07, 2019 Anesthesia Post Procedure Vital Signs Vital Signs: Temp Pulse Pulse Pulse Resp BP Pulse Ox 02/07/19 07:21 36.6 C 76 20 128/69 96 02/07/19 04:31 65 02/07/19 04:00 36.7 C 72 18 132/75 95 02/06/19 23:00 36.3 C L 95 H 18 104/70 96 02/06/19 21:00 73 02/06/19 20:32 36.9 C 80 20 103/66 97 02/06/19 15:01 36.8 C 72 18 102/59 L 94 02/06/19 14:50 69 16 95/54 L 94 02/06/19 14:40 36.7 C 77 16 88/54 L 99 02/06/19 13:46 36.8 C 80 20 103/69 95 02/06/19 13:25 37.0 C 76 18 97/55 L 96 02/06/19 11:25 37.1 C 79 20 104/65 94 Pain Intensity Right Back: Pain Intensity: 8 Notes Mental Status: alert / awake / arousable and participated in evaluation Patient Amnestic to Procedure: Yes Nausea / Vomiting: adequately controlled Pain: adequately controlled Airway Patency, RR, SpO2: stable & adequate BP & HR: stable & adequate Hydration State: stable & adequate Anesthetic Complications: no major complications apparent and Pt Satisfied with anesthetic care
[2019-02-07] MEDS: URSODIOL 300 MG CAP PO SCH (08:22)
[2019-02-07] MEDS: DOCUSATE SODIUM 100 MG CAP PO SCH (08:24)
[2019-02-07] MEDS: PRENATAL VITAMIN 1 TAB PO SCH ×2 (08:24→08:27)
[2019-02-07] MEDS: ASPIRIN 81 MG ECTAB PO SCH (08:25)
[2019-02-07] MEDS: predniSONE 20 MG TAB PO SCH (08:25)
[2019-02-07] MEDS: TAMSULOSIN HCL 0.4 MG CAP PO SCH (08:25)
[2019-02-07] MEDS: CIPROFLOXACIN 400 MG/200 ML BAG IV SCH (09:17)
[2019-02-07] MEDS ORDERED: CIPROFLOXACIN 500 MG TAB PO ONE (10:00)
--- NOTE | 2019-02-07 10:06 | Hospitalist Progress Note ---
Date of Service February 07, 2019 Assessment & Plan (1) UTI (urinary tract infection): (2) Calculus, ureteral: -Hospital day #4 -CT ABD/pelvis showing 5 mm obstructing distal right ureteral stone with moderate hydroureteronephrosis -UA also suggests UTI -Does not appear septic -Urology consulted, s/p cystoscopy with stent placement on 02/06 -Urine culture suggesting contamination; blood cultures no growth -Urine culture obtained during cystoscopy yesterday pending -Discharge today; continue Cipro to complete a 7-day course and Flomax -Follow-up with urology (3) Drug rash: -Improving -Possibly from recent use of cefadroxil or Celebrex during postop phase from right OSCAR -Discontinue cefadroxil and Celebrex -PRN Benadryl -Prednisone 40 mg x 5 days (day #3) (4) Autoimmune hemolytic anemia: -Baseline hemoglobin ~ 11-12 -Hgb 11.7 -> 9.8 -> 9.0 -> 9.1 today (likely some dilutional component from IVF) -Continue to monitor (5) Primary biliary cirrhosis: -Stable -Continue ursodiol (6) Hypothyroidism: -Continue levothyroxine (7) DVT prophylaxis: -SCDs due to possible invasive procedure Subjective Patient seen and examined. Underwent cystoscopy with stent placement yesterday. Feeling much better, eager to be discharged. Pain resolved. Denies nausea. Afebrile. Physical Exam Constitutional: no acute distress Ambulating in room Respiratory: normal respiratory effort, lungs clear to auscultation Cardiovascular: Rate/Rhythm: regular rate and regular rhythm Vessels: normal peripheral pulses Extremities: no edema Skin: + rash (Maculopapular rash continues to improve) Psychiatric: Orientation: alert and oriented x 3 Genitourinary: no CVA tenderness Results & Data Vital Signs (Past 12 Hours) Vital Signs Temp Pulse Pulse Resp BP Pulse Ox 02/07/19 09:47 63 02/07/19 07:21 36.6 C 76 20 128/69 96 02/07/19 04:31 65 02/07/19 04:00 36.7 C 72 18 132/75 95 02/06/19 23:00 36.3 C L 95 H 18 104/70 96 Laboratory Results Short CBC 02/07/19 Range/Units 06:49 WBC 3.15 L (4.8-10.8) K/uL Hgb 9.1 L (12.0-16.0) g/dL Hct 27.6 L (37-47) % Plt Count 190 (130-400) K/uL [facility] 02/07/19 06:49 Sodium 145 Potassium 3.9 Chloride 115 H Carbon Dioxide 25 BUN 16 Creatinine 0.96 Glucose 84 Calcium 9.3
--- NOTE | 2019-02-07 10:30 | Urology Progress Note ---
Date of Service February 07, 2019 Assessment & Plan (1) Calculus, ureteral: (2) UTI (urinary tract infection): 63 yo F POD #1 s/p right stent placement secondary to 5mm distal right ureteral stone, moderate hydro, suspected UTI Doing well. Denies stent irritation. Original UC&S results showed high contamination. Repeat urine culture pending, though she has been on broad spectrum antibiotics while inpatient. Will continue Ciprofloxacin PO upon discharge per primary team. Will follow-up with us outpatient next week with KUB to discuss definitive stone management. Office will coordinate. Subjective 63 yo F POD #1 s/p right stent placement secondary to 5mm obstructing distal right ureteral stone with Dr. Menjivar. Sitting comfortably in bedside chair. Feeling well. Appetite is good. No stent irritation or urinary c/o at present. Chart review: VSS Original urine culture showed high contamination. UC&S repeated at time of surgery, but patient has been on broad spectrum antibiotics while inpatient. Review of Systems Review of Systems: All systems reviewed & are unremarkable except as noted in HPI & below Physical Exam Physical Exam: NAD AOx3 Normal respiratory effort Abd nondistended No pedal edema Results & Data Vital Signs (Past 12 Hours) Vital Signs Temp Pulse Pulse Resp BP BP Pulse Ox 02/07/19 10:06 36.6 C 76 20 128/69 111/72 96 02/07/19 09:47 63 02/07/19 09:24 36.6 C 76 20 128/69 111/72 96 02/07/19 07:21 36.6 C 76 20 128/69 96 02/07/19 04:31 65 02/07/19 04:00 36.7 C 72 18 132/75 95 02/06/19 23:00 36.3 C L 95 H 18 104/70 96 PG Care Time/CCT Total # of Minutes Spent Total Time Spent with Patient: Total time spent is greater than 50% in coordination of care (as documented) at patient's floor/unit and/or counseling patient:
--- NOTE | 2019-02-07 10:34 | Discharge Summary ---
Date of Service February 07, 2019 Admission HPI Per Admitting Provider History obtained from patient and records. 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 Recent [facility] confinement August 2016 for septic shock secondary to complicated UTI/E. coli bacteremia. Recent confinement [facility] 2 weeks ago for elective right hip replacement. Uncomplicated immediate postop course as per records. Patient prescribed oral cephalosporin course postop. Yesterday, patient noted achy right flank pain reminiscent of kidney stone pain. Patient also noted fever, body aches. No hematuria. Pruritic rash noted over face and right lower extremity. No chest pain, no S OB. At the ER, patient given Levaquin for sepsis. Admission Exam Per Admitting Provider GENERAL: Slightly uncomfortable, pleasant, no respiratory distress SKIN: Pallor , warm HEENT: Bespectacled, pale palpebral conjunctivae, no ptosis, dry buccal mucosa, wheals noted on with mid face area NECK : Supple, no tenderness CHEST : CTA, no tenderness HEART : RRR, no obvious murmurs ABDOMEN: Some distention, nontender EXTREMITIES : wheals, minimal induration right thigh, well coaptated right thigh incisional wound, minimal RLE swelling, no overt LE tenderness, no other conspicuous deformities noted NEUROLOGIC : Coherent, no facial asymmetry, no other gross focality Principal Diagnosis Ureteral Calculi, UTI Discharge Data Allergies Allergy/AdvReac Type Severity Reaction Status Date / Time Cephalosporins Allergy Mild Rash Verified 02/05/19 00:18 latex Allergy Unknown gets rash Verified 02/04/19 23:22 Flu Virus Vaccine Allergy Unknown "my red Uncoded 02/04/19 23:22 blood cells drop" Consultations Dr. Menjivar, urology Procedures Performed Operation Date: 02/06/19 13:30 Actual Procedures p Stent Placement(Right) - Simón Menjivar DO s Cystoscopy, Right Retrograde and (Right) - Simón Menjivar DO Ordered Studies CT ABD/PELVIS IMPRESSION: 1. Obstructing 5 mm calculus in the distal right ureter a few centimeters proximal to the UVJ with resultant moderate right hydroureteronephrosis. 2. Additional nonobstructing bilateral nephrolithiasis. 3. Postsurgical changes of total right hip arthroplasty. 4. Added density of the lung bases with vague patchy groundglass opacity, mild interlobular septal thickening, apparent nodular pleural thickening on the left and a solid pulmonary nodule measuring 6 mm. Several of these findings require follow-up and are indeterminate. Follow-up per 2017 Fleischner Society criteria below with a 6 month follow-up time course favored. Some element of chronic lung disease may be present. CXR IMPRESSION: Slight prominence of the pulmonary vasculature. Trace pleural fluid left base. No acute infiltrate. Hospital Course (1) UTI (urinary tract infection): (2) Calculus, ureteral: -CT ABD/pelvis showing 5 mm obstructing distal right ureteral stone with moderate hydroureteronephrosis -UA also suggested UTI -Did not appear septic -Urology consulted, s/p cystoscopy with stent placement on 02/06 -Urine culture suggesting contamination; blood cultures no growth -Urine culture obtained during cystoscopy pending -Received IV Cipro; continue Cipro to complete a 7-day course and Flomax -Follow-up with urology (3) Drug rash: -Improving -Possibly from recent use of cefadroxil or Celebrex during postop phase from right OSCAR -Discontinue cefadroxil and Celebrex -Prednisone 40 mg x 5 days (4) Lung nodule: -Noted to have 6 mm left lung nodule -Will need follow-up CT in 6 months (5) Autoimmune hemolytic anemia: -Follows with Dr. David Bragg -Baseline hemoglobin ~ 11-12 -Hgb 11.7 -> 9.8 -> 9.0 -> 9.1 on 02/07 (likely some dilutional component from IVF) -Has labs scheduled for Dr. Bragg next week (6) Primary biliary cirrhosis: -Stable -Continue ursodiol (7) Hypothyroidism: -Continue levothyroxine Total Time Total Time Spent Total Time Spent (In Minutes): 40 Discharge Plan Discharge Items Patient Disposition: Home - Self-Care Reason For Visit: Kidney Stone Discharge Diagnosis: Urinary Tract Infection Kidney Stone Condition on Discharge: Good Activity: Resume your previous activity Non-emergency contact: Primary Care Provider Call non-emergency contact if: you have any medication questions Follow-up/Referrals: Lashawn Mendenhall DO [Primary Care Provider] - 02/14/19 11:20 am Diet: Regular Addtl Attending Provider Instructions: You were admitted to the hospital for urinary tract infection and kidney stone. You were given IV antibiotics for the urinary tract infection and will be discharges on oral antibiotics. Urology placed a stent. You will need to follow up with them. Their office will call you with appointment day and time. You were also found to have a rash. It was possibly from the recent use of cefadroxil or Celebrex. STOP BOTH OF THESE MEDICATIONS. You were started on steroids for the rash and will need to take additional doses at home. [facility] Follow Up Appt: 02/13 at 11:00 Pending Studies at Discharge: Yes Studies:: urine culture obtained during cysto Stand-Alone Forms: My [facility], Smoking Cessation Medications and DC Order Prescriptions: New prednisone 20 mg Tablet 40 mg PO DAILY 3 Days Qty: 6 RF: 0 ciprofloxacin HCl 500 mg tablet 500 mg PO BID Qty: 9 RF: 0 tamsulosin 0.4 mg Capsule 0.4 mg PO QAM 14 Days Qty: 14 RF: 0 Continued ursodiol 300 mg Capsule 600 mg PO BID RF: 0 levothyroxine 150 mcg Tablet 150 mcg PO QAM RF: 0 aspirin [Aspirin Low Dose] 81 mg Tablet,Delayed Release (Dr/Ec) 81 mg PO DAILY RF: 0 naproxen sodium [Aleve] 220 mg Tablet 440 mg PO BID PRN (Reason: Pain) RF: 0 docusate sodium 100 mg Tablet 100 mg PO BID RF: 0 senna 8.6 mg Capsule 8.6 mg PO DAILY PRN (Reason: Constipation) RF: 0 400 mcg Tablet,Chewable 400 mcg PO DAILY RF: 0 Discontinued celecoxib [Celebrex] 200 mg capsule 200 mg PO DAILY RF: 0 Discharge Orders: Discharge Order (Routine); Ordered 02/07/19 Ordered By: Paulette Najera Admission Data Admit Date/Time: 02/05/19 02:52 Attending Provider: Henok Dudley Admit Provider: Harry Reddy Primary Care Provider: Lashawn Mendenhall Other Providers: Harry Reddy ; Gildardo Diaz ; Addy Lofton ; Gab Valentine I. ; Vega Lora ; Rhoda Tate ; Simón Menjivar ; Erica Leyva I ; Efe Miranda ; Indu Olmstead. Other Interventions: Discharge Summary Assessment (RN) Last Done: 02/07/19 10:06 DE Date/Time DO NOT enter until pt leaves facility: 02/07/19 11:23 Supervising Physician Co-Signing Physician Notes I saw this patient with the Nurse Practitioner, I participated in the history, physical, review of systems, and physical exam. I reviewed the medications with the patient and the Nurse Practitioner and helped reconcile the medications. I helped take a detailed family and social history as well. I formulated the assessment and plan personally with the Nurse Practitioner went over it with the patient. ROS-No Headache, No Visual Changes, No Nausea, No Vomiting, No Fever, No Chills, No Neck Pain or Stiffness, No Chest Pain, No Palpitations, No SOB, No MATHIS, No Cough, No Sputum, No Wheezing, No Abdominal Pain, No Diarrhea, No Hematemesis, No Hemoptysis, No Unexpected Weight Loss, No Flank pain, No Melena, No Hematochezia, No Frequency, No Urgency, No Burning, No Hematuria, No Rashes, No Diaphoresis. Appetite is Normal, c/o of rash and R CVAT Physical Exam Gen-AAO x 3, NAD, Afebrile, Facial, Trunk, Hand and Back rash mildly better Head-NCAT, EOMI, PERRLA, Anicteric Sclera, No Posterior Pharyngeal Erythema Neck-Supple, No JVD, No Thyromegaly, No Masses, No LAD, No Bruits Lungs-Clear to Auscultation Bilaterally, No Rales, No Rhonchi, No Wheezing, No Crepitus Chest-No S4, +S1, +S2, No S3, No Murmurs, No Rubs, No Gallops, No Ectopy Abdomen-Soft, Bowel Sounds Present, Non Tender, Non Distended, No Hepatomegaly, No Splenomegaly, No Palpable Masses, No Rebound, No Rigidity, No Guarding Musculoskeletal-Full Range of Motion Bilaterally, R CVAT Extremities-No Cyanosis, No Clubbing, No Edema Nuero-Cranial Nerves II-XII grossly intact, Motor WNL, DTRs WNL, Strength WNL, Non Focal Psych-Normal Mood
== END 2019-02-07 11:23 | disposition home or self-care (01) | DRG 660 ==
LOC: ED 21:52 → 2N 02-05 02:52